=== PATIENT | female | born 1985 | race Caucasian/White ===

== ENCOUNTER 2020-10-08 11:05 | Outpatient (REF) | payer BC, SELFPAY ==
[2020-10-08 13:49] LABS: MANUAL DIFF FLAG NO
[2020-10-08 13:55] LABS: Basophils Absolute Auto 0.1 X10*3/uL (0.0-0.2); Eosinophils Absolute Auto 0.3 X10*3/uL (0.0-0.4); Eosinophils Percent Auto 3.8 % (0-4); Hematocrit 43.3 % (37-47); Hemoglobin 14.3 g/dl (12.0-16.0); Imm Gran Abs Auto 0.02 X10*3/uL (0.00-0.03); Imm Gran Pct Auto 0.2 % (0.0-0.4); Lymphocytes Absolute Auto 3.3 X10*3/uL (1.2-4.9); Lymphocytes Percent Auto 36.3 % (20-40); Mean Corpuscular Hemoglobin 28.8 pg (27.0-33.0); Mean Corpuscular Volume 87.3 fL (80-98); Mean Platelet Volume 11.1 fL (9.4-12.3); Monocytes Absolute Auto 0.5 X10*3/uL (0.1-1.2); Monocytes Percent Auto 5.1 % (2-11); Neutrophils Absolute Auto 4.8 X10*3/uL (2.0-8.3); Neutrophils Percent Auto 53.6 % (45-73); Platelet Count 375 X10*3/uL (160-400); Red Blood Count 4.96 X10*6/uL (4.20-5.50); Red Cell Distribution Width 12.5 % (11.0-16.0)
[2020-10-08 14:26] LABS: Alanine Aminotransferase 18 U/L (0-31); Anion Gap 15 (12-20); Aspartate Amino Transferase 16 U/L (5-31); Blood Urea Nitrogen 9 mg/dL (9-16); Calcium 9.2 mg/dL (8.4-10.2); Carbon Dioxide 24 mmol/L (22-29); Chloride 106 mmol/L (96-108); Cholesterol 257 mg/dL; Estimated Glomerular Filt Rate > 60; Glucose Fasting 90 mg/dL (60-99); HDL Cholesterol 43 mg/dL; LDL Cholesterol Calculated 183 mg/dl; Potassium 4.6 mmol/L (3.3-5.1); Sodium 140 mmol/L (135-145); Triglycerides 158 mg/dL
== END 2020-10-08 11:06 | disposition home or self-care (01) ==
LOC: HO.HMGCLDS 11:05
PROVIDERS: PCP Internal Medicine; Visit Provider Internal Medicine
DX: E78.5 Hyperlipidemia, unspecified (principal); G43.909 Migraine, unspecified, not intractable, without status migrainosus; I10 Essential (primary) hypertension
CPT/HCPCS: 36415; 80048; 80061; 84450; 84460; 85025

== ENCOUNTER 2020-11-22 13:57 | Outpatient (REF) | payer BC, SELFPAY ==
[2020-11-23 09:04] LABS: CT PCR NOT DETECTED (Not Detect.); NG PCR NOT DETECTED (Not Detect.)
[2020-11-23 11:02] LABS: BV Int Neg Control Negative (Negative); BV Int Pos Control Positive (Positive)
[2020-11-26 21:28] LABS: HPV mRNA E6/E7 rflx Not Detected (Not Detected)
== END 2020-11-22 13:58 | disposition home or self-care (01) ==
LOC: HO.LAB 13:57
PROVIDERS: PCP Internal Medicine; Visit Provider Advanced Practice Midwife
DX: Z01.419 Encounter for gynecological examination (general) (routine) without abnormal findings (principal); Z11.51 Encounter for screening for human papillomavirus (HPV); Z11.3 Encounter for screening for infections with a predominantly sexual mode of transmission; N89.8 Other specified noninflammatory disorders of vagina
CPT/HCPCS: 87480; 87491; 87510; 87591; 87624; 87660; 88142

== ENCOUNTER 2022-04-07 09:39 | Outpatient (REF) | payer OTHER, SELFPAY ==
[2022-04-07 12:22] LABS: Alanine Aminotransferase 19 U/L (0-31); Anion Gap 16 (12-20); Aspartate Amino Transferase 15 U/L (5-31); Blood Urea Nitrogen 11 mg/dL (9-16); Calcium 9.3 mg/dL (8.4-10.2); Carbon Dioxide 23 mmol/L (22-29); Chloride 105 mmol/L (96-108); Cholesterol 241 mg/dL; Estimated Glomerular Filt Rate > 60; Glucose Fasting 95 mg/dL (60-99); HDL Cholesterol 39 mg/dL; LDL Cholesterol Calculated 179 mg/dl; Potassium 4.6 mmol/L (3.3-5.1); Sodium 139 mmol/L (135-145); Triglycerides 115 mg/dL
[2022-04-07 12:31] LABS: TSH reflex Free T4 0.87 uIU/mL (0.32-4.0)
== END 2022-04-07 09:40 | disposition home or self-care (01) ==
LOC: HO.HMGCLDS 09:39
PROVIDERS: PCP Internal Medicine; Visit Provider Internal Medicine
DX: Z00.01 Encounter for general adult medical examination with abnormal findings (principal); E66.9 Obesity, unspecified; E78.2 Mixed hyperlipidemia; G43.009 Migraine without aura, not intractable, without status migrainosus
CPT/HCPCS: 36415; 80048; 80061; 84443; 84450; 84460

== ENCOUNTER → 2022-07-31 10:02 | Outpatient (BNVA) | payer OTHER, SELFPAY | PROVIDERS: PCP Internal Medicine; Visit Provider Advanced Practice Midwife | DX: Z13.89 Encounter for screening for other disorder (principal) ==

== ENCOUNTER 2022-07-31 10:55 | Emergency (ER) | payer OTHER, SELFPAY ==
--- NOTE | ~2022-07-31 | CT_ITS ---
EXAMINATION: CT HEAD WITHOUT CONTRAST CLINICAL INFORMATION: Headache. COMPARISON: None. TECHNIQUE: Contiguous axial imaging was performed from the skull base to vertex without intravenous contrast. This CT examination was performed using dose optimization techniques as appropriate, variously including the following: * Automated exposure control * Adjustment of mA and/or kV according to patient size (this includes techniques or standardized protocols for targeted exams where dose is matched to indication/reason for exam; i.e. extremities or head) Use of iterative reconstruction technique DLP: 687 mGy-cm. FINDINGS: There is no evidence of acute intracranial hemorrhage or territorial infarction. No abnormal mass effect or midline shift is seen. Reza to white matter differentiation is well preserved. No extra-axial fluid collections are identified. No hydrocephalus. No significant volume loss. There is no abnormal attenuation within the brain parenchyma. The osseous structures and soft tissues are normal. Partially opacified right mastoid air cells. The left mastoid air cells and visualized portions of the paranasal sinuses are well aerated. CT/CT head/brain wo IV con IMPRESSION: No acute intracranial pathology.
[2022-07-31 11:23] VITALS: BP 133/89; PULSE 50; RESP 16; TEMP 36.3; O2SAT 99; BMI 33.9
--- NOTE | 2022-07-31 11:24 | ECG_ITS ---
Test Reason : MIGRAINE Blood Pressure : / mmHG Vent. Rate : 051 BPM Atrial Rate : 051 BPM P-R Int : 138 ms QRS Dur : 080 ms QT Int : 470 ms P-R-T Axes : 031 071 072 degrees QTc Int : 433 ms Sinus bradycardia Otherwise normal ECG No previous ECGs available Referred By: Al Tate Electronically Signed By:Chandler Merino
--- NOTE | 2022-07-31 11:26 | ED.GENADULT ---
HPI - General Adult General Chief complaint: Headache <JIMMIE Bowman - Last Filed: 08/04/22 11:28> Stated complaint: Migraine Vomiting <JIMMIE Bowman - Last Filed: 08/04/22 11:28> Time Seen by Provider: 07/31/22 13:48 <JIMMIE Bowman - Last Filed: 08/04/22 11:28> Source: patient <Bridgette Ceballos NP - Last Filed: 07/31/22 16:37> Mode of arrival: ambulatory <Bridgette Ceballos NP - Last Filed: 07/31/22 16:37> Limitations: no limitations <Bridgette Ceballos NP - Last Filed: 07/31/22 16:37> History of Present Illness HPI narrative: 37-year-old female past medical history of URBAN, obesity, migraines, and mild intermittent asthma presents to the emergency department today for complaints of a migraine that began this morning around 10:00 a.m.. She states she took 100 mg of Imitrex with no relief in symptoms. She reports sensitivity to light with nausea and vomiting. She states she has had migraines in the past and has been unable to determine triggers. She was given Zofran and Fioricet in triage with moderate relief of symptoms. She denies any recent illness, sick contacts, chest pain, shortness of breath, diarrhea, constipation, dizziness. <Bridgette Ceballos NP - Last Filed: 07/31/22 16:37> Onset (ago): hour(s) (4) <Bridgette Ceballos NP - Last Filed: 07/31/22 16:37> Location: head <Bridgette Ceballos NP - Last Filed: 07/31/22 16:37> Radiation: non-radiation <Bridgette Ceballos NP - Last Filed: 07/31/22 16:37> Severity: severe and similar to prior episodes <Bridgette Ceballos NP - Last Filed: 07/31/22 16:37> Severity scale (1-10): 8 <Bridgette Ceballos NP - Last Filed: 07/31/22 16:37> Quality: aching <Bridgette Ceballos NP - Last Filed: 07/31/22 16:37> Pain Consistency: constant <Bridgette Ceballos NP - Last Filed: 07/31/22 16:37> Relieving factors: none <Bridgette Ceballos NP - Last Filed: 07/31/22 16:37> Treatments prior to arrival: other (Imitrex) <Bridgette Ceballos NP - Last Filed: 07/31/22 16:37> Related Data Home medications: Home Medications Medication Instructions Recorded Confirmed levonorgestrel 20 mcg/24 hours (8 intrauterine 10/08/20 07/30/21 yrs) 52 mg intrauterine device (Mirena) multivitamin (One-A-Day Essential 1 tab PO DAILY 10/08/20 07/30/21 tablet) Previous Rx's Medication Instructions Recorded albuterol sulfate 90 mcg/actuation 2 inh inhalation Q6H PRN shortness 10/21/21 aerosol inhaler of breath or wheezing #8.5 grams sumatriptan succinate 100 mg tablet 100 mg PO Q2-4H PRN migraine 10/21/21 headache #9 tabs cyclobenzaprine 10 mg tablet 10 mg PO TID PRN muscle spasm #10 05/13/22 tabs Symbicort 160 mcg-4.5 2 puff inhalation Q12H #10.2 grams 06/18/22 mcg/actuation HFA aerosol inhaler (budesonide-formoterol) diphenhydramine HCl 25 mg capsule 25 mg PO TID PRN nausea and 07/31/22 (Benadryl) vomiting #30 caps metoclopramide HCl 10 mg tablet 10 mg PO Q6H PRN nausea and 07/31/22 (Reglan) vomiting #10 tabs <JIMMIE Bowman - Last Filed: 08/04/22 11:28> Allergies/adverse reactions: Allergies Allergy/AdvReac Type Severity Reaction Status Date / Time No Known Allergies Allergy Verified 07/31/22 10:13 <JIMMIE Bowman - Last Filed: 08/04/22 11:28> Review of Systems Review of Systems: In addition to documented HPI above, the additional ROS was obtained: Constitutional: No Weight loss, No Fever, No Chills ENT/Mouth: No Ear Pain, No Nasal Congestion, No Sinus Pain, No Hoarseness, No sore throat, No Rhinorrhea, No Swallowing Difficulty Cardiovascular: No Chest Pain, No SOB Respiratory: No Cough, No Sputum, No Wheezing Gastrointestinal: No Diarrhea, No Constipation, No Abdominal pain Genitourinary: No Dysuria, No Urinary Frequency, No Hematuria, No Urinary Incontinence/retention, No Urgency, No Flank Pain Musculoskeletal: No joint pain, No Myalgias, No Joint Swelling Skin: No Skin Lesions, No rash Neuro: No Weakness, No Numbness, No Paresthesias <Bridgette Ceballos NP - Last Filed: 07/31/22 16:37> Yes all other systems are reviewed and are negative <Bridgette Ceballos NP - Last Filed: 07/31/22 16:37> [facility] Past Medical History Attestation statement: The following information was validated with the patient. <Bridgette Ceballos NP - Last Filed: 07/31/22 16:37> Source: old records reviewed <Bridgette Ceballos NP - Last Filed: 07/31/22 16:37> Medical History: Medical History Anxiety and depression Enlarged tonsils Migraine Mild intermittent asthma in adult without complication Mixed dyslipidemia Obesity (BMI 30-39.9) URBAN (obstructive sleep apnea) SI (sacroiliac) pain <JIMMIE Bowman - Last Filed: 08/04/22 11:28> Surgical History: Surgical History History of wisdom tooth extraction Hx of LASIK <JIMMIE Bowman - Last Filed: 08/04/22 11:28> Family History Family History: Family History Father No problems noted. Mother HTN (hypertension) Cervical cancer Substance use disorder Maternal Grandmother Substance use disorder Maternal Grandfather Cancer Paternal Grandmother No problems noted. Paternal Grandfather Cancer of thyroid Substance use disorder Brother No problems noted. Sister No problems noted. Son No problems noted. Daughter No problems noted. <JIMMIE Bowman - Last Filed: 08/04/22 11:28> Social History Social History: Social History Housing: House Alcohol intake: never Patient Tobacco Use Status: Former Tobacco user Years Smoked: 15 yrs Smoked in Last 30 Days: Yes e-Cigarette/Vaping Use: Never Used Second Hand Smoke Exposure: No Use of substances other than those prescribed or required for medical reasons: Yes Substance Use Type: Marijuana Advance Directives: No service: No Current occupational status: employed Gender identity: Female Cognitive needs: No Hearing needs: No Vision needs: No <JIMMIE Bowman - Last Filed: 08/04/22 11:28> Physical Exam ED Vital Signs: Vital Signs - 24 hr 07/31/22 11:23 07/31/22 14:03 Temperature 97.3 F Pulse Rate 50 66 Respiratory Rate 16 17 Blood Pressure 133/89 153/101 H Pulse Oximetry 99 97 Oxygen Delivery Method Room Air Room Air BMI result Body Mass Index 33.9 <JIMMIE Bowman - Last Filed: 08/04/22 11:28> Vital Signs - 24 hr 07/31/22 11:23 07/31/22 14:03 Temperature 97.3 F Pulse Rate 50 66 Respiratory Rate 16 17 Blood Pressure 133/89 153/101 H Pulse Oximetry 99 97 Oxygen Delivery Method Room Air Room Air BMI result Body Mass Index 33.9 <Bridgette Ceballos NP - Last Filed: 07/31/22 16:37> Const General: cooperative, alert and awake <Bridgette Ceballos NP - Last Filed: 07/31/22 16:37> Nutritional Appearance: well nourished <Bridgette Ceballos NP - Last Filed: 07/31/22 16:37> Orientation/consciousness: patient oriented x3 <Bridgette Ceballos NP - Last Filed: 07/31/22 16:37> Limitations: no limitations <Bridgette Ceballos NP - Last Filed: 07/31/22 16:37> HENMT Head: Yes normal to inspection, Yes normocephalic and Yes atraumatic <Bridgette Ceballos NP - Last Filed: 07/31/22 16:37> Ears: hearing grossly normal bilaterally and external ears normal <Bridgette Ceballos WEIGHT INSPECTOR - Last Filed: 07/31/22 16:37> General nose exam: Normal external nose present and Normal nares present <Bridgette Ceballos WEIGHT INSPECTOR - Last Filed: 07/31/22 16:37> Face and sinus: Yes normal facial exam and Yes face symmetric <Bridgette Ceballos WEIGHT INSPECTOR - Last Filed: 07/31/22 16:37> Mouth: Normal oral and palatal mucosa present <Bridgette Ceballos WEIGHT INSPECTOR - Last Filed: 07/31/22 16:37> Eyes General: appearance normal, both eyes and all related structures <Bridgette Ceballos WEIGHT INSPECTOR - Last Filed: 07/31/22 16:37> Visual Logan: normal visual logan by confrontation <Bridgette Ceballos WEIGHT INSPECTOR - Last Filed: 07/31/22 16:37> Alignment and Position: alignment normal <Bridgette Ceballos WEIGHT INSPECTOR - Last Filed: 07/31/22 16:37> Periorbital: periorbital findings normal <Bridgette Ceballos WEIGHT INSPECTOR - Last Filed: 07/31/22 16:37> Eyelids: Yes eyelids normal <Bridgette Ceballos WEIGHT INSPECTOR - Last Filed: 07/31/22 16:37> Conjunctivae: conjunctivae normal <Bridgette Ceballos WEIGHT INSPECTOR - Last Filed: 07/31/22 16:37> Sclerae: sclerae normal <Bridgette Ceballos WEIGHT INSPECTOR - Last Filed: 07/31/22 16:37> Corneas: corneas normal <Bridgette Ceballos WEIGHT INSPECTOR - Last Filed: 07/31/22 16:37> Pupils: Equal, round and reactive pupils present <Bridgette Ceballos WEIGHT INSPECTOR - Last Filed: 07/31/22 16:37> EOM: EOMs intact bilaterally <Bridgette Ceballos WEIGHT INSPECTOR - Last Filed: 07/31/22 16:37> Neck Neck: Yes normal visual inspection, Yes full ROM and Yes no lymphadenopathy <Bridgette Ceballos WEIGHT INSPECTOR - Last Filed: 07/31/22 16:37> Chest Chest palpation & inspection: normal inspection of the chest <Bridgette Ceballos, WEIGHT INSPECTOR - Last Filed: 07/31/22 16:37> Resp Effort & Inspection: normal respiratory effort and not labored <Bridgette Ceballos, WEIGHT INSPECTOR - Last Filed: 07/31/22 16:37> Auscultation: clear to auscultation bilaterally, no crackles, no rhonchi and no wheezes <Bridgette Ceballos, WEIGHT INSPECTOR - Last Filed: 07/31/22 16:37> Cardio Rate: regular rate <Bridgette Ceballos, WEIGHT INSPECTOR - Last Filed: 07/31/22 16:37> Rhythm: regular rhythm <Bridgette Ceballos, WEIGHT INSPECTOR - Last Filed: 07/31/22 16:37> GI Inspection: Yes normal to inspection <Bridgette Ceballos, WEIGHT INSPECTOR - Last Filed: 07/31/22 16:37> Palpation (GI): Soft to palpation and nontender <Bridgette Ceballos, WEIGHT INSPECTOR - Last Filed: 07/31/22 16:37> Auscultation: normal bowel sounds <Bridgette Ceballos, WEIGHT INSPECTOR - Last Filed: 07/31/22 16:37> Back/Spine/Pelvis Cervical Spine: cervical ROM normal <Bridgette Ceballos, WEIGHT INSPECTOR - Last Filed: 07/31/22 16:37> Thoracic/Lumbar Spine: thoraco-lumbar ROM normal <Bridgette Ceballos, WEIGHT INSPECTOR - Last Filed: 07/31/22 16:37> Skin General skin exam: no rashes or lesions noted <Bridgette Ceballos, WEIGHT INSPECTOR - Last Filed: 07/31/22 16:37> Neuro General: patient oriented x3, tone normal and moves all extremities <Bridgette Ceballos, WEIGHT INSPECTOR - Last Filed: 07/31/22 16:37> Cranial nerves: Yes Equal, round and reactive pupils present, Yes Nystagmus not present, Yes Normal facial strength present and Yes Midline tongue present <Bridgette Ceballos, WEIGHT INSPECTOR - Last Filed: 07/31/22 16:37> Gait exam (Neuro): Normal gait present <Bridgette Ceballos, WEIGHT INSPECTOR - Last Filed: 07/31/22 16:37> Motor exam (neuro): 5/5 motor strength present throughout <Bridgetteeron Ceballos WEIGHT INSPECTOR - Last Filed: 07/31/22 16:37> Extrem General: Yes normal to inspection, Yes full ROM and Yes capillary refill normal <Bridgetteeron Ceballos WEIGHT INSPECTOR - Last Filed: 07/31/22 16:37> Psych Appearance: grossly normal <Bridgetteeron Ceballos WEIGHT INSPECTOR - Last Filed: 07/31/22 16:37> Mental Status: mental status grossly normal <Bridgettemarika Ceballos, WEIGHT INSPECTOR - Last Filed: 07/31/22 16:37> Speech and movement: Normal speech and movement present <Bridgetteeron Ceballos, WEIGHT INSPECTOR - Last Filed: 07/31/22 16:37> Affect: normal affect <Bridgettemarika Ceballos, WEIGHT INSPECTOR - Last Filed: 07/31/22 16:37> Attitude: cooperative <Bridgetteeron Ceballos WEIGHT INSPECTOR - Last Filed: 07/31/22 16:37> Thought process: Normal thought process present <Bridgetteeron Ceballos WEIGHT INSPECTOR - Last Filed: 07/31/22 16:37> Thought content: Normal thought content present <Bridgetteeron Ceballos WEIGHT INSPECTOR - Last Filed: 07/31/22 16:37> Insight: Good insight present (Psych) <Bridgette Ceballos WEIGHT INSPECTOR - Last Filed: 07/31/22 16:37> Judgement: Good judgement present (Psych) <Bridgetteeron Ceballos WEIGHT INSPECTOR - Last Filed: 07/31/22 16:37> Course Course Course Narrative: 37 binu matthews with pmh of migraines presents to the ED for migraine exacerbation. patient states having photophobia, nausea and vomitting since this morning. patient states this her 3rd migraine exacerbation this month. Patient usually have more than one migraine exacerbation per month. patient states her headache is presently is similiar to previous exacerbation but today is stronger. no neuro deficits on exam. patient denies any trauma, blood thinners, neck stiffness, fever, or chills. Vital signs stable. patient is slight bradycardic at 50. labs, fiorecet, zofran ordered. EKG ordered due to bradycardia. Will order head CT scan. <JIMMIE Bowman - Last Filed: 08/04/22 11:28> Medications Administered Discontinued Medications Generic Name Dose Route Start Last Admin Trade Name Chiquis PRN Reason Stop Dose Admin Acetaminophen/Butalbital/Caffeine 2 tab 07/31/22 11:24 07/31/22 11:28 Butalb/Acetamin/Caff 50/325/40 Tablet PO 07/31/22 11:25 2 tab ONCE ONE Administration Diphenhydramine HCl 50 mg 07/31/22 14:09 07/31/22 14:36 Diphenhydramine Hcl 25 Mg Capsule PO 07/31/22 14:10 50 mg ONCE ONE Administration Ketorolac Tromethamine 15 mg 07/31/22 14:09 07/31/22 14:36 Ketorolac Tromethamine 15 Mg/Ml Vial IM 07/31/22 14:10 15 mg ONCE ONE Administration Metoclopramide HCl 10 mg 07/31/22 14:09 07/31/22 14:36 Metoclopramide Hcl 10 Mg Tablet PO 07/31/22 14:10 10 mg ONCE ONE Administration Ondansetron HCl 4 mg 07/31/22 11:24 07/31/22 11:28 Ondansetron Odt 4 Mg Tab.Rapdis TRANSLINGU 07/31/22 11:25 4 mg ONCE ONE Administration <JIMMIE Bowman - Last Filed: 08/04/22 11:28> Medications Administered Discontinued Medications Generic Name Dose Route Start Last Admin Trade Name Chiquis PRN Reason Stop Dose Admin Acetaminophen/Butalbital/Caffeine 2 tab 07/31/22 11:24 07/31/22 11:28 Butalb/Acetamin/Caff 50/325/40 Tablet PO 07/31/22 11:25 2 tab ONCE ONE Administration Diphenhydramine HCl 50 mg 07/31/22 14:09 07/31/22 14:36 Diphenhydramine Hcl 25 Mg Capsule PO 07/31/22 14:10 50 mg ONCE ONE Administration Ketorolac Tromethamine 15 mg 07/31/22 14:09 07/31/22 14:36 Ketorolac Tromethamine 15 Mg/Ml Vial IM 07/31/22 14:10 15 mg ONCE ONE Administration Metoclopramide HCl 10 mg 07/31/22 14:09 07/31/22 14:36 Metoclopramide Hcl 10 Mg Tablet PO 07/31/22 14:10 10 mg ONCE ONE Administration Ondansetron HCl 4 mg 07/31/22 11:24 07/31/22 11:28 Ondansetron Odt 4 Mg Tab.Livan FITZGERALDU 07/31/22 11:25 4 mg ONCE ONE Administration <Bridgette Ceballos NP - Last Filed: 07/31/22 16:37> Medical Decision Making Medical Decision Making [facility] Narrative: 37-year-old female past medical history of URBAN, obesity, migraines, and mild intermittent asthma presents to the emergency department today for complaints of a migraine with sensitivity to light that began this morning around 10:00 a.m. with associated nausea and vomiting. She states she took 100 mg of Imitrex with no relief in symptoms. She was given Zofran and Fioricet in triage with moderate relief of symptoms. Blood work is unremarkable. Serology is negative for influenza, RSV, or COVID-19. EKG sinus bradycardia with no previous EKGs available for comparison. CT head with no acute intracranial pathology. Reglan, Benadryl, and IM Toradol given for complaints of headache with moderate improvement. HPI and PE consistent with migraine headache. No suspicion for intracranial pathology, temporal arteritis, orbital neuritis based on physical exam and diagnostics. Patient is safe for discharge with education to manage headaches with prescribed sumatriptan, Tylenol, and/or Motrin for symptom management. Educated to return to the emergency department with worsening headache, dizziness, nausea and intractable vomiting, vision changes, or any other concerning emergent symptoms. Recommended to follow-up with her primary care provider for further treatment and management. <Bridgette Ceballos NP - Last Filed: 07/31/22 16:37> Lab Data [facility] Lab Attestation statement: I reviewed the patient's lab results. <Bridgette Ceballos NP - Last Filed: 07/31/22 16:37> Result Diagrams: : 07/31/22 11:43 07/31/22 11:43 <JIMMIE Bowman - Last Filed: 08/04/22 11:28> Labs: Lab Results 07/31/22 07/31/22 07/31/22 Range/Units 11:43 11:43 11:43 WBC 17.0 H (4.8-10.8) X10*3/uL RBC 5.01 (4.20-5.50) X10*6/uL Hgb 14.5 (12.0-16.0) g/dl Hct 43.7 (37.0-47.0) % MCV 87.2 (80.0-98.0) fL MCH 28.9 (27.0-33.0) pg MCHC 33.2 (31.0-35.0) g/dl RDW 13.0 (11.0-16.0) % Plt Count 409 H (160-400) X10*3/uL MPV 10.1 (9.4-12.3) fL Immature Gran % (Auto) 0.4 (0.0-0.4) % Neut % (Auto) 76.0 H (45-73) % Lymph % (Auto) 18.3 L (20-40) % [place] % (Auto) 3.7 (2-11) % Eos % (Auto) 1.1 (0-4) % Baso % (Auto) 0.5 (0-2) % Lymph # (Auto) 3.1 (1.2-4.9) X10*3/uL [place] # (Auto) 0.6 (0.1-1.2) X10*3/uL Eos # (Auto) 0.2 (0.0-0.4) X10*3/uL Baso # (Auto) 0.1 (0.0-0.2) X10*3/uL Abs Immat Gran (auto) 0.07 H (0.00-0.03) X10*3/uL Absolute Neuts (auto) 12.9 H (2.0-8.3) x10*3/uL Absolute Nucleated RBC 0.000 (0.0-0.012) X10*3/uL Nucleated RBC % (auto) 0.0 (0.0-0.2) /100WBC Sodium 139 (135-145) mmol/L Potassium 4.1 (3.3-5.1) mmol/L Chloride 107 (96-108) mmol/L Carbon Dioxide 23 (22-29) mmol/L Anion Gap 13 (12-20) BUN 9 (9-16) mg/dL Creatinine 0.77 (0.5-1.4) mg/dL Estim Creat Clear Calc 118.6 Estimated GFR > 60 Random Glucose 164 H (60-115) mg/dL Calcium 9.6 (8.4-10.2) mg/dL Total Bilirubin 0.4 (0.0-1.0) mg/dL AST 12 (5-31) U/L ALT 13 (0-31) U/L Alkaline Phosphatase 60 (39-117) U/L Troponin I High Sens < 3.5 (<3.5-17.0) ng/L Total Protein 7.0 (6.5-8.0) g/dL Albumin 4.5 (3.5-5.0) g/dL Beta HCG, Quant < 2 mIU/mL Influenza Type A (PCR) (Negative) Influenza Type B (PCR) (Negative) RSV RNA Qual (PCR) (Negative) SARS-CoV-2 RNA (RT-PCR) (Negative) 07/31/22 Range/Units 11:43 WBC (4.8-10.8) X10*3/uL RBC (4.20-5.50) X10*6/uL Hgb (12.0-16.0) g/dl Hct (37.0-47.0) % MCV (80.0-98.0) fL MCH (27.0-33.0) pg MCHC (31.0-35.0) g/dl RDW (11.0-16.0) % Plt Count (160-400) X10*3/uL MPV (9.4-12.3) fL Immature Gran % (Auto) (0.0-0.4) % Neut % (Auto) (45-73) % Lymph % (Auto) (20-40) % [place] % (Auto) (2-11) % Eos % (Auto) (0-4) % Baso % (Auto) (0-2) % Lymph # (Auto) (1.2-4.9) X10*3/uL [place] # (Auto) (0.1-1.2) X10*3/uL Eos # (Auto) (0.0-0.4) X10*3/uL Baso # (Auto) (0.0-0.2) X10*3/uL Abs Immat Gran (auto) (0.00-0.03) X10*3/uL Absolute Neuts (auto) (2.0-8.3) x10*3/uL Absolute Nucleated RBC (0.0-0.012) X10*3/uL Nucleated RBC % (auto) (0.0-0.2) /100WBC Sodium (135-145) mmol/L Potassium (3.3-5.1) mmol/L Chloride (96-108) mmol/L Carbon Dioxide (22-29) mmol/L Anion Gap (12-20) BUN (9-16) mg/dL Creatinine (0.5-1.4) mg/dL Estim Creat Clear Calc Estimated GFR Random Glucose (60-115) mg/dL Calcium (8.4-10.2) mg/dL Total Bilirubin (0.0-1.0) mg/dL AST (5-31) U/L ALT (0-31) U/L Alkaline Phosphatase (39-117) U/L Troponin I High Sens (<3.5-17.0) ng/L Total Protein (6.5-8.0) g/dL Albumin (3.5-5.0) g/dL Beta HCG, Quant mIU/mL Influenza Type A (PCR) NEGATIVE (Negative) Influenza Type B (PCR) NEGATIVE (Negative) RSV RNA Qual (PCR) NEGATIVE (Negative) SARS-CoV-2 RNA (RT-PCR) NEGATIVE (Negative) <JIMMIE Bowman - Last Filed: 08/04/22 11:28> Lab Results 07/31/22 07/31/22 07/31/22 Range/Units 11:43 11:43 11:43 WBC 17.0 H (4.8-10.8) X10*3/uL RBC 5.01 (4.20-5.50) X10*6/uL Hgb 14.5 (12.0-16.0) g/dl Hct 43.7 (37.0-47.0) % MCV 87.2 (80.0-98.0) fL MCH 28.9 (27.0-33.0) pg MCHC 33.2 (31.0-35.0) g/dl RDW 13.0 (11.0-16.0) % Plt Count 409 H (160-400) X10*3/uL MPV 10.1 (9.4-12.3) fL Immature Gran % (Auto) 0.4 (0.0-0.4) % Neut % (Auto) 76.0 H (45-73) % Lymph % (Auto) 18.3 L (20-40) % [place] % (Auto) 3.7 (2-11) % Eos % (Auto) 1.1 (0-4) % Baso % (Auto) 0.5 (0-2) % Lymph # (Auto) 3.1 (1.2-4.9) X10*3/uL [place] # (Auto) 0.6 (0.1-1.2) X10*3/uL Eos # (Auto) 0.2 (0.0-0.4) X10*3/uL Baso # (Auto) 0.1 (0.0-0.2) X10*3/uL Abs Immat Gran (auto) 0.07 H (0.00-0.03) X10*3/uL Absolute Neuts (auto) 12.9 H (2.0-8.3) x10*3/uL Absolute Nucleated RBC 0.000 (0.0-0.012) X10*3/uL Nucleated RBC % (auto) 0.0 (0.0-0.2) /100WBC Sodium 139 (135-145) mmol/L Potassium 4.1 (3.3-5.1) mmol/L Chloride 107 (96-108) mmol/L Carbon Dioxide 23 (22-29) mmol/L Anion Gap 13 (12-20) BUN 9 (9-16) mg/dL Creatinine 0.77 (0.5-1.4) mg/dL Estim Creat Clear Calc 118.6 Estimated GFR > 60 Random Glucose 164 H (60-115) mg/dL Calcium 9.6 (8.4-10.2) mg/dL Total Bilirubin 0.4 (0.0-1.0) mg/dL AST 12 (5-31) U/L ALT 13 (0-31) U/L Alkaline Phosphatase 60 (39-117) U/L Troponin I High Sens < 3.5 (<3.5-17.0) ng/L Total Protein 7.0 (6.5-8.0) g/dL Albumin 4.5 (3.5-5.0) g/dL Beta HCG, Quant < 2 mIU/mL Influenza Type A (PCR) (Negative) Influenza Type B (PCR) (Negative) RSV RNA Qual (PCR) (Negative) SARS-CoV-2 RNA (RT-PCR) (Negative) 07/31/22 Range/Units 11:43 WBC (4.8-10.8) X10*3/uL RBC (4.20-5.50) X10*6/uL Hgb (12.0-16.0) g/dl Hct (37.0-47.0) % MCV (80.0-98.0) fL MCH (27.0-33.0) pg MCHC (31.0-35.0) g/dl RDW (11.0-16.0) % Plt Count (160-400) X10*3/uL MPV (9.4-12.3) fL Immature Gran % (Auto) (0.0-0.4) % Neut % (Auto) (45-73) % Lymph % (Auto) (20-40) % [place] % (Auto) (2-11) % Eos % (Auto) (0-4) % Baso % (Auto) (0-2) % Lymph # (Auto) (1.2-4.9) X10*3/uL [place] # (Auto) (0.1-1.2) X10*3/uL Eos # (Auto) (0.0-0.4) X10*3/uL Baso # (Auto) (0.0-0.2) X10*3/uL Abs Immat Gran (auto) (0.00-0.03) X10*3/uL Absolute Neuts (auto) (2.0-8.3) x10*3/uL Absolute Nucleated RBC (0.0-0.012) X10*3/uL Nucleated RBC % (auto) (0.0-0.2) /100WBC Sodium (135-145) mmol/L Potassium (3.3-5.1) mmol/L Chloride (96-108) mmol/L Carbon Dioxide (22-29) mmol/L Anion Gap (12-20) BUN (9-16) mg/dL Creatinine (0.5-1.4) mg/dL Estim Creat Clear Calc Estimated GFR Random Glucose (60-115) mg/dL Calcium (8.4-10.2) mg/dL Total Bilirubin (0.0-1.0) mg/dL AST (5-31) U/L ALT (0-31) U/L Alkaline Phosphatase (39-117) U/L Troponin I High Sens (<3.5-17.0) ng/L Total Protein (6.5-8.0) g/dL Albumin (3.5-5.0) g/dL Beta HCG, Quant mIU/mL Influenza Type A (PCR) NEGATIVE (Negative) Influenza Type B (PCR) NEGATIVE (Negative) RSV RNA Qual (PCR) NEGATIVE (Negative) SARS-CoV-2 RNA (RT-PCR) NEGATIVE (Negative) <Bridgette Ceballos NP - Last Filed: 07/31/22 16:37> Radiology Impression Discussion of test interpretation with radiology: I have reviewed the radiologist's reading. <Bridgette Ceballos NP - Last Filed: 07/31/22 16:37> Radiologist Impression: EXAMINATION: CT HEAD WITHOUT CONTRAST CLINICAL INFORMATION: Headache. COMPARISON: None. TECHNIQUE: Contiguous axial imaging was performed from the skull base to vertex without intravenous contrast. This CT examination was performed using dose optimization techniques as appropriate, variously including the following: *? Automated exposure control *? Adjustment of mA and/or kV according to patient size (this includes techniques or standardized protocols for targeted exams where dose is matched to indication/reason for exam; i.e. extremities or head) Use of iterative reconstruction technique DLP: 687 mGy-cm. FINDINGS: There is no evidence of acute intracranial hemorrhage or territorial infarction. No abnormal mass effect or midline shift is seen. Reza to white matter differentiation is well preserved. No extra-axial fluid collections are identified. No hydrocephalus. No significant volume loss. There is no abnormal attenuation within the brain parenchyma. The osseous structures and soft tissues are normal. Partially opacified right mastoid air cells. The left mastoid air cells and visualized portions of the paranasal sinuses are well aerated. ? CT/CT head/brain wo IV con IMPRESSION: No acute intracranial pathology. Dictated By: Sterling Denton MD Signed By: <Electronically signed by Sterling Denton MD in [place]> 07/31/22 1307 DD/ 1236 TD/TT:? 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: PAM <Bridgette Ceabllos NP - Last Filed: 07/31/22 16:37> Discharge Plan Discharge Clinical Impression: Migraine <JIMMIE Bowman - Last Filed: 08/04/22 11:28> Patient Disposition: Home, Self-Care <JIMMIE Bowman - Last Filed: 08/04/22 11:28> Instructions: Migraine Headache (ED) <JIMMIE Bowman - Last Filed: 08/04/22 11:28> Prescriptions: New metoclopramide HCl [Reglan] 10 mg tablet 10 mg PO Q6H PRN (Reason: nausea and vomiting) Qty: 10 0RF diphenhydramine HCl [Benadryl] 25 mg capsule 25 mg PO TID PRN (Reason: nausea and vomiting) Qty: 30 0RF No Action sumatriptan succinate 100 mg tablet 100 mg PO Q2-4H PRN (Reason: migraine headache) Qty: 9 5RF albuterol sulfate 90 mcg/actuation HFA aerosol inhaler 2 inh inhalation Q6H PRN (Reason: shortness of breath or wheezing) Qty: 8.5 0RF budesonide-formoterol [Symbicort] 160-4.5 mcg/actuation HFA aerosol inhaler 2 puff inhalation Q12H Qty: 10.2 4RF Mirena 20 mcg/24 hours (6 yrs) 52 mg intrauterine device intrauterine multivitamin [One-A-Day Essential] Tablet 1 tab PO DAILY cyclobenzaprine 10 mg tablet 10 mg PO TID PRN (Reason: muscle spasm) Qty: 10 0RF <JIMMIE Bowman - Last Filed: 08/04/22 11:28> Referrals: [facility] [place] [facility] [Provider Group] Solange Ramsay MD [Primary Care Provider] - <JIMMIE Bowman - Last Filed: 08/04/22 11:28> Stand Alone Forms: Work/School Release <JIMMIE Bowman - Last Filed: 08/04/22 11:28> Interventions: ED Discharge Assessment Last Done: 07/31/22 16:51 <JIMMIE Bowman - Last Filed: 08/04/22 11:28> Discharge Date/Time: 07/31/22 16:52 <JIMMIE Bowman - Last Filed: 08/04/22 11:28> Print Language: Pashto <JIMMIE Bowman - Last Filed: 08/04/22 11:28>
[2022-07-31] MEDS: Ondansetron ODT 4 MG TAB.RAPDIS TRANSLINGU (11:28)
[2022-07-31] MEDS: Butalb/Acetamin/Caff 50/325/40 TABLET 2 TAB PO (11:28)
[2022-07-31 11:49] LABS: MANUAL DIFF FLAG NO
[2022-07-31 11:52] LABS: Basophils Absolute Auto 0.1 X10*3/uL (0.0-0.2); Basophils Percent Auto 0.5 % (0-2); Eosinophils Absolute Auto 0.2 X10*3/uL (0.0-0.4); Eosinophils Percent Auto 1.1 % (0-4); Hematocrit 43.7 % (37.0-47.0); Hemoglobin 14.5 g/dl (12.0-16.0); Imm Gran Abs Auto 0.07 X10*3/uL (0.00-0.03); Imm Gran Pct Auto 0.4 % (0.0-0.4); Lymphocytes Absolute Auto 3.1 X10*3/uL (1.2-4.9); Lymphocytes Percent Auto 18.3 % (20-40); Mean Corpuscular HGB Conc 33.2 g/dl (31.0-35.0); Mean Corpuscular Hemoglobin 28.9 pg (27.0-33.0); Mean Corpuscular Volume 87.2 fL (80.0-98.0); Mean Platelet Volume 10.1 fL (9.4-12.3); Monocytes Absolute Auto 0.6 X10*3/uL (0.1-1.2); Monocytes Percent Auto 3.7 % (2-11); Neutrophils Absolute Auto 12.9 x10*3/uL (2.0-8.3); Platelet Count 409 X10*3/uL (160-400); Red Blood Count 5.01 X10*6/uL (4.20-5.50)
[2022-07-31 12:21] LABS: Alanine Aminotransferase 13 U/L (0-31); Albumin Level 4.5 g/dL (3.5-5.0); Alkaline Phosphatase 60 U/L (39-117); Anion Gap 13 (12-20); Aspartate Amino Transferase 12 U/L (5-31); Bilirubin Total 0.4 mg/dL (0.0-1.0); Blood Urea Nitrogen 9 mg/dL (9-16); Calcium 9.6 mg/dL (8.4-10.2); Carbon Dioxide 23 mmol/L (22-29); Chloride 107 mmol/L (96-108); Creatinine Clr Calc Pharmacy 118.6; Estimated Glomerular Filt Rate > 60; Glucose Random 164 mg/dL (60-115); HCG Quantitative < 2 mIU/mL; Potassium 4.1 mmol/L (3.3-5.1); Sodium 139 mmol/L (135-145); Troponin-I High Sensitivity < 3.5 ng/L (<3.5-17.0)
[2022-07-31 12:41] LABS: Influenza A PCR NEGATIVE (Negative); Influenza B PCR NEGATIVE (Negative); Resp Syncy Virus RNA Qual PCR NEGATIVE (Negative); SARS COV2 PCR INHOUSE NEGATIVE (Negative)
[2022-07-31 14:03] VITALS: BP 153/101; PULSE 66; RESP 17; O2SAT 97
[2022-07-31] MEDS: Ketorolac Tromethamine 15 MG/ML VIAL IM (14:36)
[2022-07-31] MEDS: diphenhydrAMINE HCL 25 MG CAPSULE 50 MG PO (14:36)
[2022-07-31] MEDS: Metoclopramide HCl 10 MG TABLET PO (14:36)
[2022-07-31 16:50] VITALS: BP 142/88; PULSE 71; RESP 16; O2SAT 98
== END 2022-07-31 16:52 | disposition home or self-care (01) ==
PROVIDERS: Physician Assistant; Emergency Provider Emergency Medicine Emergency Medical Services; PCP Internal Medicine
DX: G43.909 Migraine, unspecified, not intractable, without status migrainosus (principal); Z20.822 Contact with and (suspected) exposure to COVID-19; F12.90 Cannabis use, unspecified, uncomplicated; E66.9 Obesity, unspecified; Z68.33 Body mass index [BMI] 33.0-33.9, adult; E78.5 Hyperlipidemia, unspecified; Z79.899 Other long term (current) drug therapy
CPT/HCPCS: 0241U; 36415; 70450; 80053; 84484; 84702; 85025; 93005; 96372; 99284; 99285; J1885

== ENCOUNTER 2022-10-22 08:39 | Outpatient (REF) | payer OTHER, SELFPAY ==
[2022-10-22 13:52] LABS: CT PCR NOT DETECTED (Not Detect.); NG PCR NOT DETECTED (Not Detect.)
== END 2022-10-22 08:40 | disposition home or self-care (01) ==
LOC: HO.LNP 08:39
PROVIDERS: PCP Internal Medicine; Visit Provider Advanced Practice Midwife
DX: Z20.2 Contact with and (suspected) exposure to infections with a predominantly sexual mode of transmission (principal)
CPT/HCPCS: 0353U

== ENCOUNTER 2022-11-20 09:14 | Outpatient (REF) | payer OTHER, SELFPAY ==
[2022-11-21 09:55] LABS: BV Int Neg Control Negative (Negative); BV Int Pos Control Positive (Positive)
== END 2022-11-20 09:15 | disposition home or self-care (01) ==
LOC: HO.LAB 09:14
PROVIDERS: PCP Internal Medicine; Visit Provider Advanced Practice Midwife
DX: N92.1 Excessive and frequent menstruation with irregular cycle (principal); Z97.5 Presence of (intrauterine) contraceptive device; Z32.02 Encounter for pregnancy test, result negative
CPT/HCPCS: 81025; 87480; 87510; 87660; 99212

== ENCOUNTER 2022-11-26 12:56 | Outpatient (REF) | payer OTHER, SELFPAY ==
--- NOTE | ~2022-11-26 | US_ITS ---
EXAMINATION: US PELVIS CLINICAL INFORMATION: Irregular menses. Check IUD. COMPARISON: None available. TECHNIQUE: Ultrasound of the pelvis is performed using both transabdominal and transvaginal transducers along with Doppler. Transvaginal imaging is performed due to inadequate visualization transabdominally. FINDINGS: The uterus is anteverted and measures 7.1 x 4.2 x 4.7 cm in dimension. There is an IUD in the uterus. This appears low in position in the lower uterine segment. Endometrial thickness is normal measuring 0.4 cm. No focal uterine lesion. The right ovary is not seen. The left ovary measures 3 x 1.7 x 2.4 cm and is normal-appearing. There is no fluid in the pelvis. US/US pelvic and transvaginal IMPRESSION: Low position of the IUD in the lower uterine segment. Normal left ovary. Right ovary not seen. Findings will be communicated by the [place] work flow machine cementer.
== END 2022-11-26 12:57 | disposition home or self-care (01) ==
LOC: HO.HMGCX 12:56
PROVIDERS: PCP Internal Medicine; Visit Provider Advanced Practice Midwife
DX: N92.1 Excessive and frequent menstruation with irregular cycle (principal); Z97.5 Presence of (intrauterine) contraceptive device
CPT/HCPCS: 76830; 76856

== ENCOUNTER → 2022-12-04 13:00 | Outpatient (BNVA) | payer OTHER, SELFPAY | PROVIDERS: PCP Internal Medicine; Visit Provider Advanced Practice Midwife | DX: Z30.431 Encounter for routine checking of intrauterine contraceptive device (principal) | CPT/HCPCS: 58301; 99212 ==

== ENCOUNTER 2023-08-04 11:51 | Outpatient (AMB) | payer OTHER, SELFPAY ==
[2023-08-04 12:14] VITALS: BP 100/70; PULSE 71; O2SAT 98; BMI 30.2
--- NOTE | 2023-08-04 12:14 | A.OFFPC_ITS ---
Vital Signs 08/04/23 12:14 Height 5 ft 6 in Weight 187 lb BMI 30.2 BP 100/70 Blood Pressure Location Lt brachial Position Sitting Pulse 71 Pulse Source Pulse Oximeter Pulse Oximetry (%) 98 Oxygen Delivery Method Room Air Intake Visit Reasons: Inner ear disfunction and hearing issue follow up Intake Note: Pt is here today Rt ear hearing issues Allergies No Known Allergies Allergy (Verified 08/04/23 12:14) Medication List - Last Reconciled 08/11/23 by Solange Ramsay MD albuterol sulfate 90 mcg/actuation 2 inhalations inhalation Q6H PRN inhalational spacing device (BreatheRite MDI Spacer) As directed magnesium oxide 400 mg PO DAILY rizatriptan mg PO Symbicort 160-4.5 mcg/actuation (budesonide-formoterol) 2 puffs inhalation Q12H NS Tobacco use date assessed: 08/04/23 Dental Screening Dental Screen Date: 08/04/23 Did you have a dental visit in the last 12 months?: Yes Did you have a dental problem in the last 6 months where you did not have access to dental care?: Yes Was dental information given to patient?: Patient has dentist HPI Inner ear disfunction and hearing issue follow up HPI Details 38-year-old lady with mild intermittent asthma currently stable controlled on Symbicort, needs refills, here today complaining of pressure sensation side both ears, with mild decrease in hearing noted. Denies pain, no ear discharge, no fever or lightheadedness or gait instability reported. [facility] Medical History History of abnormal cervical Papanicolaou smear Refused influenza vaccine Anxiety and depression Enlarged tonsils URBAN (obstructive sleep apnea) SI (sacroiliac) pain Mixed dyslipidemia Obesity (BMI 30-39.9) Migraine Mild intermittent asthma in adult without complication Surgical History Hx of LASIK History of wisdom tooth extraction Family History Father No problems noted. Mother HTN (hypertension) Cervical cancer Substance use disorder Maternal Grandmother Substance use disorder Maternal Grandfather Cancer Paternal Grandmother No problems noted. Paternal Grandfather Cancer of thyroid Substance use disorder Brother No problems noted. Sister No problems noted. Son No problems noted. Daughter No problems noted. Social History Housing: House Alcohol intake: never Patient Tobacco Use Status: Current someday Tobacco user Years Smoked: 15 yrs e-Cigarette/Vaping Use: Currently Using Second Hand Smoke Exposure: No Substance Use Type: Marijuana service: No Current occupational status: employed Sexual orientation: Straight/Heterosexual Gender identity: Female Cognitive needs: No Hearing needs: No Vision needs: No Female Reproductive History Menstrual Age of Menarche: 15 Questionnaire PHQ-9 Over the last 2 weeks, how often have you been bothered by any of the following problems? 1. Little interest or pleasure in doing things: not at all 2. Feeling down, depressed, or hopeless: not at all 3. Trouble falling or staying asleep, or sleeping too much: not at all 4. Feeling tired or having little energy: not at all 5. Poor appetite or overeating: not at all 6. Feeling bad about yourself - or that you are a failure or have let yourself or your family down: not at all 7. Trouble concentrating on things, such as reading the newspaper or watching television: not at all 8. Moving or speaking so slowly that other people could have noticed. Or the opposite - being so fidgety or restless that you have been moving around a lot more than usual: not at all 9. Thoughts that you would be better off or of hurting yourself in some way: not at all Total score: 0 Depression Screening Interpretation: Negative Depression Screening Done: Yes 81241 - PHQ-9 Billing: Yes Source: Developed by Drs. Nakul Don, Omayra Haywood, Hunter Tomlin and colleagues, with an educational gallo from [employer]. Thrive Questionnaire Date Thrive assessed: 08/04/23 I am a: Patient What is your living situation today?: I have a steady place to live Within the past 12 months, did the food you bought not last and you didn't have the money to get more?: Never true Within the past 12 months, did you worry whether your food would run out before you got money to buy more?: Never true Do you have trouble paying for medicines?: No Do you have trouble getting transportation to medical appointments?: No Do you have trouble paying your heating and electricity bill?: No Do you have trouble taking care of your child, family member or friend?: No Do you have trouble with day-to-day activities such as bathing, preparing meals, shopping, managing finances, etc.?: No Are you currently unemployed and looking for a job?: No Are you interested in more education?: No AUDIT C Alcohol Use Questionnaire (AUDIT-C) 1. How often do you have a drink containing alcohol?: Never Total Score: 0 KRISTY-7 AMB Questionnaire KRISTY-7 Date KRISTY - 7 assessed: 08/04/23 Feeling nervous, anxious, or on edge: 1 = Several days Not being able to stop or control worryin = Not at all Worrying too much about different things: 1 = Several days Trouble relaxin = Several days Being so restless that it is hard to sit still: 0 = Not at all Becoming easily annoyed or irritable: 1 = Several days Feeling afraid as if something awful might happen: 0 = Not at all Total KRISTY-7 score (0-4 normal; 5-9 mild; 10-14 moderate; 15-21 severe): 4 Source: Developed by Drs. Nakul Don, Omayra Haywood, Hunter Tomlin and colleagues, with an educational gallo from [employer]. KRSITY-7 Assessment Billing KRISTY-7 Assessment Tool: KRISTY-7 Assessment 14179 ACT Questionnaire In the past 4 weeks, how much of the time did your asthma keep you from getting as much done at work, school or at home?: None of the time During the past 4 weeks, how often have you had shortness of breath?: 1-2 times a week During the past 4 weeks, how often have you had to use your rescue inhaler or nebulizer medication?: Once a week or less How would you rate your asthma control during the past 4 weeks?: Well controlled ACT Interpretation: Negative Score: 17 Review of Systems Const All systems reviewed & are unremarkable except as noted in HPI and below Physical exam (Primary Care) Vital Signs: Last Vital Signs Pulse 71 08/04/23 12:14 BP 100/70 08/04/23 12:14 Pulse Ox 98 08/04/23 12:14 Oxygen Delivery Method Room Air 08/04/23 12:14 BMI result Body Mass Index 30.2 Tobacco/Smoking Status: Tobacco use Status Tobacco use date assessed 08/04/23 08/04/23 12:15 Patient Tobacco Use Status Current someday Tobacco 08/04/23 12:15 e-Cigarette/Vaping Use Currently Using 08/04/23 12:15 PHQ-9: PHQ-9 Score PHQ-9: Total score 0 08/04/23 12:50 Depression Screening Interpretation: Negative Thrive Assessment: Date of Thrive Assessment Date Thrive assessed 08/04/23 08/04/23 12:19 Const General: comfortable, no acute distress and alert Nutritional Appearance: obese Orientation/consciousness: patient oriented x3 HENMT Head: Yes normocephalic Ears: external ears normal, TM's normal bilaterally, EAC's normal and hearing grossly impaired General nose exam: Normal external nose present and No nasal discharge present Face and sinus: Yes face symmetric Mouth: Normal oral and palatal mucosa present, oropharynx normal and moist mucous membranes Neck Neck: Yes full ROM, Yes no lymphadenopathy and Yes supple Resp Auscultation: clear to auscultation bilaterally Cardio Other: S1-S2 present regular rate and rhythm Neuro General: patient oriented x3 Assessment and Plan Assessment & Plan (1) Pressure sensation in right ear: Code(s): H93.8X1 - Other specified disorders of right ear (2) Mild intermittent asthma in adult without complication: Code(s): J45.20 - Mild intermittent asthma, uncomplicated Orders: Referrals Ear/Nose/Throat Referral H93.8X1 - Other specified disorders of right ear Medications: New inhalational spacing device (BreatheRite MDI Spacer) As directed 1 ea 0RF J45.20 - Mild intermittent asthma, uncomplicated Refilled Symbicort 160-4.5 mcg/actuation (budesonide-formoterol) 2 puffs inhalation Q12H 30.6 grams 8RF NS J45.20 - Mild intermittent asthma, uncomplicated Coding Level of Care Code Est Pt Level 3 (86005) Diagnoses Pressure sensation in right ear H93.8X1 Mild intermittent asthma in adult without complication J45.20 Additional Codes KRISTY-7 Assessment Billing - KRISTY-7 Assessment Tool: KRISTY-7 Assessment [id number] ([id number])
== END 2023-08-04 14:12 | disposition home or self-care (01) ==
LOC: HO.HMGC 11:51
PROVIDERS: PCP Internal Medicine; Visit Provider Internal Medicine
DX: H93.8X1 Other specified disorders of right ear (principal); J45.20 Mild intermittent asthma, uncomplicated
CPT/HCPCS: 99213

== ENCOUNTER 2023-08-24 10:52 | Outpatient (AMB) | payer OTHER, SELFPAY ==
[2023-08-24 10:54] VITALS: BP 116/72; PULSE 77; O2SAT 98; BMI 30.9
--- NOTE | 2023-08-24 10:54 | A.OFFPC_ITS ---
Vital Signs 08/24/23 10:54 Height 5 ft 6 in Weight 191 lb 8 oz BMI 30.9 BP 116/72 Blood Pressure Location Rt brachial Position Sitting Pulse 77 Pulse Source Pulse Oximeter Pulse Oximetry (%) 98 Oxygen Delivery Method Room Air Intake Visit Reasons: follow AF ok Per Dr Ramsay referral needed Allergies No Known Allergies Allergy (Verified 08/24/23 11:09) Medication List - Last Reconciled 08/24/23 by TATIANA Ross albuterol sulfate 90 mcg/actuation 2 inhalations inhalation Q6H PRN inhalational spacing device (BreatheRite MDI Spacer) As directed magnesium oxide 400 mg PO DAILY omeprazole 20 mg PO DAILY rizatriptan mg PO Symbicort 160-4.5 mcg/actuation (budesonide-formoterol) 2 puffs inhalation Q12H NS Tobacco use date assessed: 08/24/23 Dental Screening Dental Screen Date: 08/24/23 Did you have a dental visit in the last 12 months?: Yes Did you have a dental problem in the last 6 months where you did not have access to dental care?: No Was dental information given to patient?: Patient has dentist HPI HPI Comments History of Present Illness Details Patient is a 38-year-old female here for a sick visit. She was recently discharged from [facility] for problem of left lower quadrant abdomen pain. She was given a CT scan which ruled out diverticulitis. Patient was given a diagnosis of gastroenteritis, and prescribe ondansetron and dicyclomine. At the appointment today patient states that the medication has not been helpful. She has localized pain to the left lower quadrant, some tenderness on palpation. Denies any trauma to the area, denies hearing any tearing or popping. Patient denies blood in stool, nausea, vomiting, tingling, fever, chest pain, dizziness. Patient states she does have small amount of reflux, and her stools have been loose. Patient denies any urinary problems. [facility] Medical History History of abnormal cervical Papanicolaou smear Refused influenza vaccine Anxiety and depression Enlarged tonsils URBAN (obstructive sleep apnea) SI (sacroiliac) pain Mixed dyslipidemia Obesity (BMI 30-39.9) Migraine Mild intermittent asthma in adult without complication Surgical History Hx of LASIK History of wisdom tooth extraction Family History Father No problems noted. Mother HTN (hypertension) Cervical cancer Substance use disorder Maternal Grandmother Substance use disorder Maternal Grandfather Cancer Paternal Grandmother No problems noted. Paternal Grandfather Cancer of thyroid Substance use disorder Brother No problems noted. Sister No problems noted. Son No problems noted. Daughter No problems noted. Social History Housing: House Alcohol intake: never Patient Tobacco Use Status: Current someday Tobacco user Years Smoked: 15 yrs e-Cigarette/Vaping Use: Currently Using Second Hand Smoke Exposure: No Substance Use Type: Marijuana service: No Current occupational status: employed Sexual orientation: Straight/Heterosexual Gender identity: Female Cognitive needs: No Hearing needs: No Vision needs: No Female Reproductive History Menstrual Age of Menarche: 15 Questionnaire Thrive Questionnaire Date Thrive assessed: 08/04/23 AUDIT C Alcohol Use Questionnaire (AUDIT-C) 1. How often do you have a drink containing alcohol?: Never 3. How often do you have six or more drinks on one occasion?: Never Total Score: 0 Score Reviewed/Action Taken: Yes KRISTY-7 AMB Questionnaire KRISTY-7 Date KRISTY - 7 assessed: 08/04/23 Source: Developed by Drs. Nakul Don, Omayra Haywood, Hunter Tomlin and colleagues, with an educational gallo from [employer]. Review of Systems Const Details: Constitutional : No Weight loss, No Fever, No Chills, No Fatigue, No Malaise Cardiovascular : No Chest Pain, No SOB, No Dyspnea on Exertion, No Orthopnea, No Edema, No Palpitations Respiratory : No Cough, No Sputum, No Wheezing Gastrointestinal : No Nausea, No Vomiting, No Diarrhea, No Constipation, Admits intermittent LLQ pain, No Hematochezia, No Melena. Admits loose stools. Genitourinary : No Dysuria, No Urinary Frequency, No Hematuria, Musculoskeletal : No joint pain, No Myalgias, No Joint Swelling Skin : No Skin Lesions, No rash Neuro : No Weakness, No Numbness, No Dizziness, No Headache Psych : No Anxiety/Panic, No Depression Heme/Lymph: No Bruising, No Bleeding,No Lymphadenopathy Endocrine : No Polyuria, No Polydipsia All other systems reviewed and are negative Physical exam (Primary Care) Vital Signs: Last Vital Signs Pulse 77 08/24/23 10:54 BP 116/72 08/24/23 10:54 Pulse Ox 98 08/24/23 10:54 Oxygen Delivery Method Room Air 08/24/23 10:54 Care Plan Goal for BP management: Patient's vital signs reviewed and are stable. BMI result Body Mass Index 30.9 Tobacco/Smoking Status: Tobacco use Status Tobacco use date assessed 08/24/23 08/24/23 11:04 Patient Tobacco Use Status Current someday Tobacco 08/24/23 10:54 e-Cigarette/Vaping Use Currently Using 08/24/23 10:54 Thrive Assessment: Date of Thrive Assessment Date Thrive assessed 08/04/23 08/24/23 10:54 Const General: cooperative and no acute distress Orientation/consciousness: patient oriented x3 Limitations: no limitations HENMT Head: Yes normal to inspection and Yes normocephalic Eyes General: appearance normal, both eyes and all related structures Pupils: Equal, round and reactive pupils present Neck Neck: Yes normal visual inspection, Yes full ROM and Yes no lymphadenopathy Resp Auscultation: clear to auscultation bilaterally Cardio Rate: regular rate Rhythm: regular rhythm Heart sounds: S1 normal heart sound present and S2 normal heart sound present GI Inspection: Yes normal to inspection Palpation (GI): Soft to palpation and Tenderness to palpation present (GI) in the LLQ Auscultation: normal bowel sounds General: Yes no CVA tenderness Back/Spine/Pelvis Back: no CVA tenderness Neuro General: patient oriented x3 Cranial nerves: Yes CN's II-XII intact bilaterally and Yes Equal, round and reactive pupils present Psych Thought content: Normal thought content present Insight: Good insight present (Psych) Judgement: Good judgement present (Psych) Results Reviewed Results Reviewed: Will call patient with lab results. Assessment and Plan Assessment & Plan (1) Left lower quadrant pain: Comment: Will order labs. Will order ultrasound the left lower quadrant to rule out hernia. Will get patient omeprazole to be taken as directed. Patient has been instructed on foods to avoid, and to drink plenty of water. Will refer to Gastroenterology. Patient has been educated on signs of worsening symptoms and when to return to the office or when to present to the emergency room. Code(s): R10.32 - Left lower quadrant pain Plan: Take your medications as prescribed. If you were prescribed antibiotics today, it is important that you take your medication to their entirety, do not skip any doses, do not finish them early. Follow-up with your primary care provider this week. Return to the emergency department with new or worsening symptoms. Such as fevers, chills, chest pain, shortness of breath, nausea, vomiting, dizziness, headache, vision changes, lethargy In case of emergency call 911 Plan Will get back to patient with lab results. Orders: Orders C Reactive Protein Today R10.9 - Unspecified abdominal pain Complete Blood Count Auto Diff Today Z13.0 - Encounter for screening for diseases of the blood and blood-forming organs and certain disorders involving the immune mechanism Erythrocyte Sedimentation Rate Today R10.9 - Unspecified abdominal pain Comprehensive Met. Panel Today Z91.89 - Other specified personal risk factors, not elsewhere classified Lipase Today R10.9 - Unspecified abdominal pain US abdomen limited Today R10.32 - Left lower quadrant pain Referrals Gastroenterology Referral R10.32 - Left lower quadrant pain Medications: New omeprazole 20 mg PO DAILY 30 caps 0RF Coding Level of Care Code Est Pt Level 3 (38804) Diagnoses Left lower quadrant pain R10.32 Time Spent (min) 30
== END 2023-08-24 12:34 | disposition home or self-care (01) ==
PROVIDERS: PCP Internal Medicine; Visit Provider Nurse Practitioner Primary Care
DX: R10.32 Left lower quadrant pain (principal)
CPT/HCPCS: 99214

== ENCOUNTER 2023-08-24 11:26 | Outpatient (REF) | payer OTHER, SELFPAY ==
[2023-08-24 13:41] LABS: MANUAL DIFF FLAG NO
[2023-08-24 13:47] LABS: Basophils Absolute Auto 0.1 X10*3/uL (0.0-0.2); Basophils Percent Auto 0.7 % (0-2); Eosinophils Absolute Auto 0.2 X10*3/uL (0.0-0.4); Eosinophils Percent Auto 2.5 % (0-4); Hematocrit 39.5 % (37.0-47.0); Hemoglobin 12.9 g/dl (12.0-16.0); Imm Gran Abs Auto 0.03 X10*3/uL (0.00-0.03); Imm Gran Pct Auto 0.4 % (0.0-0.4); Lymphocytes Absolute Auto 2.7 X10*3/uL (1.2-4.9); Lymphocytes Percent Auto 33.2 % (20-40); Mean Corpuscular HGB Conc 32.7 g/dl (31.0-35.0); Mean Corpuscular Hemoglobin 29.1 pg (27.0-33.0); Mean Corpuscular Volume 89.2 fL (80.0-98.0); Mean Platelet Volume 10.6 fL (9.4-12.3); Monocytes Absolute Auto 0.3 X10*3/uL (0.1-1.2); Monocytes Percent Auto 3.9 % (2-11); Neutrophils Absolute Auto 4.8 x10*3/uL (2.0-8.3); Neutrophils Percent Auto 59.3 % (45-73); Platelet Count 398 X10*3/uL (160-400); Red Blood Count 4.43 X10*6/uL (4.20-5.50); Red Cell Distribution Width 12.4 % (11.0-16.0); White Blood Count 8.1 X10*3/uL (4.8-10.8)
[2023-08-24 14:15] LABS: Alanine Aminotransferase 11 U/L (0-31); Alkaline Phosphatase 53 U/L (39-117); Anion Gap 12 (12-20); Aspartate Amino Transferase 10 U/L (5-31); Bilirubin Total 0.2 mg/dL (0.0-1.0); Blood Urea Nitrogen 8 mg/dL (9-16); C Reactive Protein 0.29 mg/dL (< or = 0.50); Calcium 9.1 mg/dL (8.4-10.2); Carbon Dioxide 25 mmol/L (22-29); Chloride 106 mmol/L (96-108); Estimated Glomerular Filt Rate > 60; Glucose Random 97 mg/dL (60-115); Lipase 23 U/L (8-78); Sodium 139 mmol/L (135-145); Total Protein 6.9 g/dL (6.5-8.0)
[2023-08-24 14:31] LABS: Erythrocyte Sedimentation Rate 10 MM/HR (0-20)
== END 2023-08-24 11:27 | disposition home or self-care (01) ==
LOC: HO.HMGCLDS 11:26
PROVIDERS: PCP Internal Medicine; Visit Provider Nurse Practitioner Primary Care
DX: R10.9 Unspecified abdominal pain (principal); Z13.0 Encounter for screening for diseases of the blood and blood-forming organs and certain disorders involving the immune mechanism; Z91.89 Other specified personal risk factors, not elsewhere classified
CPT/HCPCS: 36415; 80053; 83690; 85025; 85652; 86140

== ENCOUNTER 2023-08-28 10:36 | Outpatient (REF) | payer OTHER, SELFPAY ==
--- NOTE | ~2023-08-28 | US_ITS ---
EXAMINATION: US ABDOMEN LIMITED CLINICAL INFORMATION: Left lower quadrant pain. COMPARISON: None available. TECHNIQUE: Real-time imaging of the left lower quadrant. Limited visualization due to bowel gas. FINDINGS: Targeted ultrasound images were obtained by the [employer] consultant of the area of concern as indicated by the patient in the left lower quadrant and demonstrated no discrete mass or fluid collection. Limited visualization due to bowel gas. Radiologist was not in attendance. Images were later provided for interpretation. US/US abdomen limited IMPRESSION: No discrete mass or fluid collection identified in the area of concern as indicated by the patient in the left lower quadrant. Limited visualization due to bowel gas. CT scan should be considered for further evaluation.
== END 2023-08-28 10:37 | disposition home or self-care (01) ==
LOC: HO.US 10:36
PROVIDERS: PCP Internal Medicine; Visit Provider Nurse Practitioner Primary Care
DX: R10.32 Left lower quadrant pain (principal)
CPT/HCPCS: 76705

== ENCOUNTER 2023-11-25 14:06 | Outpatient (AMB) | payer OTHER, SELFPAY ==
[2023-11-25 14:10] VITALS: BP 138/84; PULSE 71; BMI 34.2
--- NOTE | 2023-11-25 14:10 | MHC.OFFVIS ---
Intake Vital Signs 11/25/23 14:10 Height 5 ft 6 in Weight 212 lb BMI 34.2 BP 138/84 Blood Pressure Location Lt brachial Position Sitting Pulse 71 Intake Visit Reasons: LLQ Pains Intake Note: Meron presents in the office as a new patient for LLQ pains. CC: Pains in the lower left quadrant. No irregular bowel movements. She gets reflux sometimes but she takes omeprazole. It seems to be more frequent pains in the abdomen more recently. 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 Pt reports having sharp pain for a few months - initially felt positional but now seems to occur despite not changing any position. Does not radiate. Very fleeting 30-60 seconds. Does occur multiple times a day. No nausea or vomiting. No changes in stools. No fevers or chills. No new meds. No pelvic surgeries. 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 Does have stress urinary incontinence. [facility] Medical History History of abnormal cervical Papanicolaou smear Refused influenza vaccine Anxiety and depression Enlarged tonsils URBAN (obstructive sleep apnea) SI (sacroiliac) pain Mixed dyslipidemia Obesity (BMI 30-39.9) Migraine Mild intermittent asthma in adult without complication Surgical History Hx of LASIK History of wisdom tooth extraction Family History Father No problems noted. Mother HTN (hypertension) Cervical cancer Substance use disorder Maternal Grandmother Substance use disorder Maternal Grandfather Cancer Paternal Grandmother No problems noted. Paternal Grandfather Cancer of thyroid Substance use disorder Brother No problems noted. Sister No problems noted. Son No problems noted. Daughter No problems noted. Social History Housing: House Alcohol intake: never Patient Tobacco Use Status: Current someday Tobacco user Years Smoked: 15 yrs e-Cigarette/Vaping Use: Currently Using Second Hand Smoke Exposure: No Substance Use Type: Marijuana service: No Current occupational status: employed Sexual orientation: Straight/Heterosexual Gender identity: Female Cognitive needs: No Hearing needs: No Vision needs: No Female Reproductive History Menstrual Age of Menarche: 15 Review of Systems Const All systems reviewed & are unremarkable except as noted in HPI and below Physical Exam Vital Signs: Last Vital Signs Pulse 71 11/25/23 14:10 BP 138/84 11/25/23 14:10 BMI result Body Mass Index 34.2 No acute distress Nonicteric Abdomen soft, nontender, nondistended Deep left pelvic tenderness No peripheral edema Assessment & Plan Assessment & Plan (1) Pain pelvic: Code(s): R10.2 - Pelvic and perineal pain Plan Reviewed with the patient that the location, character and timing of the pain is not consistent with luminal/colonic etiology. Could potentially be pelvic pain, given the location and description of the pain. Has previous history of IUD that was removed. Plan: -ultrasound pelvis -ibuprofen 600 t.i.d. x 5-7 days -heat application -follow-up in 6-8 weeks if ultrasound negative and pain not resolved Orders: Orders US pelvic complete Today R10.32 - Left lower quadrant pain Coding Level of Care Code New Pt Level 3 (20399) Diagnoses Pain pelvic R10.2
== END 2023-11-25 14:46 | disposition home or self-care (01) ==
PROVIDERS: PCP Internal Medicine; Visit Provider Internal Medicine
DX: R10.2 Pelvic and perineal pain (principal)
CPT/HCPCS: 99203

== ENCOUNTER → 2023-11-25 14:06 | Outpatient (BNVA) | payer OTHER, SELFPAY | PROVIDERS: PCP Internal Medicine; Visit Provider Internal Medicine | DX: R10.2 Pelvic and perineal pain (principal) | CPT/HCPCS: 99202 ==

== ENCOUNTER 2023-12-03 13:49 | Outpatient (REF) | payer OTHER, SELFPAY ==
--- NOTE | ~2023-12-03 | US_ITS ---
EXAMINATION: US PELVIS CLINICAL INFORMATION: Left lower quadrant pain, last menstrual period 12/02/2023. COMPARISON: 11/26/2022. TECHNIQUE: Ultrasound of the pelvis is performed using both transabdominal and transvaginal transducers along with Doppler. Transvaginal imaging is performed due to inadequate visualization transabdominally. FINDINGS: The uterus is anteverted and measures 7.0 x 3.2 x 4.3 cm. Endometrial thickness is 2 mm. No significant free fluid. Nabothian cysts in the cervix. Right ovary measures 2.0 x 1.7 x 2.8 cm, volume 5.0 mL. Left ovary measures 2.6 x 1.2 x 2.6 cm, volume 4.4 mL and is unremarkable. Right ovarian 0.8 x 0.7 x 0.7 simple ovarian cyst is likely physiologic. There is no specific indication for additional imaging at this time. US/US pelvic and transvaginal IMPRESSION: 1. Endometrial thickness is 2 mm. 2. Right ovarian 0.8 cm simple ovarian cyst is likely physiologic. There is no specific indication for additional imaging at this time.
== END 2023-12-03 13:50 | disposition home or self-care (01) ==
LOC: HO.HMGCX 13:49
PROVIDERS: PCP Internal Medicine; Visit Provider Internal Medicine
DX: R10.2 Pelvic and perineal pain (principal); R10.32 Left lower quadrant pain
CPT/HCPCS: 76830; 76856

== ENCOUNTER 2024-01-14 09:19 | Outpatient (AMB) | payer OTHER, SELFPAY ==
--- NOTE | 2024-01-14 09:36 | A.OFFPC_ITS ---
Vital Signs 01/14/24 09:37 Height 5 ft 6 in Weight 218 lb BMI 35.2 BP 122/80 Blood Pressure Location Rt brachial Position Sitting Pulse 63 Pulse Source Pulse Oximeter Pulse Oximetry (%) 98 Oxygen Delivery Method Room Air Intake Visit Reasons: annual PE Intake Note: pt here for annual PE. last PAP 11/23/20. Has upcoming appt. [facility] Allergies No Known Allergies Allergy (Verified 03/16/24 14:23) Medication List - Last Reconciled 01/14/24 by Solange Ramsay MD inhalational spacing device (BreatheRite MDI Spacer) As directed magnesium oxide 400 mg PO DAILY omeprazole 20 mg PO DAILY rimegepant (Nurtec ODT) mg PO Symbicort 160-4.5 mcg/actuation (budesonide-formoterol) 2 puffs inhalation Q12H NS Ventolin HFA 90 mcg/actuation (albuterol sulfate) 2 inhalations inhalation Q6H PRN NS Tobacco use date assessed: 01/14/24 Dental Screening Dental Screen Date: 01/14/24 Did you have a dental visit in the last 12 months?: Yes Did you have a dental problem in the last 6 months where you did not have access to dental care?: No Was dental information given to patient?: Patient has dentist HPI annual PE HPI Details 38-year-old lady here today for physical exam she is up-to-date with her cervical cancer screening, with last PAP done 11/23/20. Has upcoming appt. Already scheduled with [facility], Has mild intermittent asthma, currently stable controlled on Symbicort and has albuterol inhaler that she uses as needed. Complains of dry cracking, itchy skin on palms of both hands. Has been having intermittent episodes of pain in her right lower back, has with prolonged standing or sitting. Not much improvement with taking [id number] Tylenol [facility] Medical History (Updated 03/16/24 @ 14:36 by Solange Ramsay MD) Pain of right sacroiliac joint History of abnormal cervical Papanicolaou smear Refused influenza vaccine Anxiety and depression Enlarged tonsils URBAN (obstructive sleep apnea) SI (sacroiliac) pain Mixed dyslipidemia Obesity (BMI 30-39.9) Migraine Mild intermittent asthma in adult without complication Surgical History History of adenoidectomy Hx of tonsillectomy Hx of LASIK History of wisdom tooth extraction Family History Father No problems noted. Mother HTN (hypertension) Cervical cancer Substance use disorder Maternal Grandmother Substance use disorder Maternal Grandfather Cancer Paternal Grandmother No problems noted. Paternal Grandfather Cancer of thyroid Substance use disorder Brother No problems noted. Sister No problems noted. Son No problems noted. Daughter No problems noted. Social History Housing: House Alcohol intake: never Patient Tobacco Use Status: Former Tobacco user Years Smoked: 15 yrs e-Cigarette/Vaping Use: Currently Using Second Hand Smoke Exposure: No Substance Use Type: Marijuana service: No Current occupational status: employed Sexual orientation: Straight/Heterosexual Gender identity: Female Cognitive needs: No Hearing needs: No Vision needs: No Female Reproductive History Menstrual Age of Menarche: 15 Questionnaire PHQ-9 Over the last 2 weeks, how often have you been bothered by any of the following problems? 1. Little interest or pleasure in doing things: not at all 2. Feeling down, depressed, or hopeless: not at all 3. Trouble falling or staying asleep, or sleeping too much: several days 4. Feeling tired or having little energy: more than half the days 5. Poor appetite or overeating: not at all 6. Feeling bad about yourself - or that you are a failure or have let yourself or your family down: not at all 7. Trouble concentrating on things, such as reading the newspaper or watching television: not at all 8. Moving or speaking so slowly that other people could have noticed. Or the opposite - being so fidgety or restless that you have been moving around a lot more than usual: not at all 9. Thoughts that you would be better off or of hurting yourself in some way: not at all Total score: 3 Depression Screening Interpretation: Negative Depression Screening Done: Yes 78846 - PHQ-9 Billing: Yes Source: Developed by Drs. Nakul L. FlorenciaOmayra almonte Kurt Kroenke and colleagues, with an educational gallo from [employer]. Thrive Questionnaire Date Thrive assessed: 01/14/24 What is your living situation today?: I have a steady place to live Within the past 12 months, did the food you bought not last and you didn't have the money to get more?: Never true Within the past 12 months, did you worry whether your food would run out before you got money to buy more?: Never true Do you have trouble paying for medicines?: No Do you have trouble getting transportation to medical appointments?: No Do you have trouble paying your heating and electricity bill?: No Do you have trouble taking care of your child, family member or friend?: No Do you have trouble with day-to-day activities such as bathing, preparing meals, shopping, managing finances, etc.?: No Are you currently unemployed and looking for a job?: No Are you interested in more education?: No Please select the resources that you would like help with: None THRIVE Score: 0 AUDIT C Alcohol Use Questionnaire (AUDIT-C) 1. How often do you have a drink containing alcohol?: Never Total Score: 0 KRISTY-7 AMB Questionnaire KRISTY-7 Date KRISTY - 7 assessed: 01/14/24 Feeling nervous, anxious, or on edge: 0 = Not at all Not being able to stop or control worryin = Not at all Worrying too much about different things: 0 = Not at all Trouble relaxin = Not at all Being so restless that it is hard to sit still: 0 = Not at all Becoming easily annoyed or irritable: 0 = Not at all Feeling afraid as if something awful might happen: 0 = Not at all Total KRISTY-7 score (0-4 normal; 5-9 mild; 10-14 moderate; 15-21 severe): 0 Source: Developed by Drs. Nakul Don, Hunter Laura and colleagues, with an educational gallo from [employer]. KRISTY-7 Assessment Billing KRISTY-7 Assessment Tool: KRISTY-7 Assessment 38322 Review of Systems Const Denies fatigue Eyes Reports no additional complaints ENT Denies change in voice, Denies dysphagia, Denies nasal congestion and Denies nasal discharge Card Denies chest pain, Denies lightheadedness, Denies palpitations and Denies orthopnea Resp Denies chest congestion, Denies cough and Denies wheezing GI Denies abdominal pain, Denies bloating, Denies change in bowel habits, Denies dysphagia and Denies heartburn Reports no additional complaints Musc Reports as per HPI Skin/Breast Denies breast pain, Denies breast mass and Denies rash Neuro Reports no additional complaints Psych Reports as per HPI Endo Denies fatigue, Denies polydipsia, Denies polyuria and Denies palpitations Jeffrey/Lymph Reports no additional complaints Aller/Immun Denies wheezing Physical exam (Primary Care) Vital Signs: Last Vital Signs Pulse 63 01/14/24 09:37 BP 122/80 01/14/24 09:37 Pulse Ox 98 01/14/24 09:37 Oxygen Delivery Method Room Air 01/14/24 09:37 Care Plan Goal for BP management: Patient's vital signs reviewed and are stable. BMI result Body Mass Index 35.2 Tobacco/Smoking Status: Tobacco use Status Tobacco use date assessed 01/14/24 01/14/24 10:01 Patient Tobacco Use Status Former Tobacco user 01/14/24 10:01 e-Cigarette/Vaping Use Currently Using 01/14/24 09:37 PHQ-9: PHQ-9 Score PHQ-9: Total score 3 03/16/24 14:26 Depression Screening Interpretation: Negative Thrive Assessment: Date of Thrive Assessment Date Thrive assessed 01/14/24 01/14/24 10:01 Advance Care Planning discussion: Completed/Scanned Date of discussion: 01/14/24 Who was present: Patient Forms completed: Health Care Proxy Time spent: 16-45 minutes Actual minutes spent: 16 Const General: cooperative and no acute distress Orientation/consciousness: patient oriented x3 HENMT Head: Yes normal to inspection and Yes normocephalic Eyes General: appearance normal, both eyes and all related structures Pupils: Equal, round and reactive pupils present Neck Neck: Yes normal visual inspection, Yes full ROM and Yes no lymphadenopathy Chest Breast/axilla inspection: normal inspection of the breasts Breast/axilla palpation: normal palpation of the breasts Resp Auscultation: clear to auscultation bilaterally Cardio Rate: regular rate Rhythm: regular rhythm Heart sounds: S1 normal heart sound present and S2 normal heart sound present GI Inspection: Yes normal to inspection Palpation (GI): Soft to palpation and Tenderness to palpation present (GI) in the LLQ Auscultation: normal bowel sounds General: Yes deferred (Goes to [facility]) Back/Spine/Pelvis Other: Slight tenderness on palpation over right sacroiliac joint, negative straight leg raising sign bilaterally Skin Other: Dry cracking fissured skin on palms Neuro General: patient oriented x3 Cranial nerves: Yes CN's II-XII intact bilaterally and Yes Equal, round and reactive pupils present Extrem General: Yes full ROM, Yes no joint enlargement, Yes no clubbing, cyanosis or edema, Yes no calf tenderness and Yes normal gait Psych Appearance: grossly normal and well kempt Mental Status: mental status grossly normal Speech and movement: Normal speech and movement present Affect: normal affect Thought process: Normal thought process present Thought content: Normal thought content present Results Reviewed Results Reviewed: eric: Meron Sanchez Age/Sex: 38/F : 1985 Unit#: [id number] Attend Dr: Lucas Benítez Re08/24/23 Status: DEP REF [facility] Disch: SPEC : [id number] AALIYAH: 08/24/23 STATUS: COMP REQ : [id number] RECD: 08/24/[address]: Lucas Benítez COMP: 08/24/23 ENTERED: 08/24/23-[address]: Solange Ramsay MD ORDERED: CMP, C Reactive Prot, Lip Test Result Flag Reference Sodium 139 135-145 mmol/L Potassium 4.0 3.3-5.1 mmol/L CL 106 96-108 mmol/L CO2 25 22-29 mmol/L Gap 12 12-20 BUN 8 L 9-16 mg/dL Creat 0.74 0.5-1.4 mg/dL EGFR > 60 NOTE: For -Mongolian individuals, multiply the result by 1.210. Chronic Kidney Disease: Estimated GFR < 60 mL/min/1.73m2 Severe Kidney Disease: Estimated GFR < 15 mL/min/1.73m2 Glucose, Random 97 60-115 mg/dL CA 9.1 8.4-10.2 mg/dL Total Bili 0.2 0.0-1.0 mg/dL AST (GOT) 10 5-31 U/L ALT (GPT) 11 0-31 U/L CRP 0.29 < or = 0.50 mg/dL Protein, Total 6.9 6.5-8.0 g/dL Alb 4.0 3.5-5.0 g/dL Alk Phos 53 39-117 U/L Lipase 23 8-78 U/L Name: Meron Sanchez Age/Sex: 38/F : 1985 Unit#: [id number] Attend Dr: Lucas Benítez Re08/24/23 Status: DEP REF Location: [facility] Disch: SPEC : [id number] AALIYAH: 08/24/23 STATUS: COMP REQ : [id number] RECD: 08/24/[address]: Lucas Benítez COMP: 08/24/23 ENTERED: 08/24/[address]: Solange Ramsay MD ORDERED: CBC Auto Diff Test Result Flag Reference WBC 8.1 4.8-10.8 X10*3/uL RBC 4.43 4.20-5.50 X10*6/uL HGB 12.9 12.0-16.0 g/dl HCT 39.5 37.0-47.0 % MCV 89.2 80.0-98.0 fL MCH 29.1 27.0-33.0 pg MCHC 32.7 31.0-35.0 g/dl RDW 12.4 11.0-16.0 % PLT 398 160-400 X10*3/uL MPV 10.6 9.4-12.3 fL Neut Pct Auto 59.3 45-73 % ImGran Pct Auto 0.4 0.0-0.4 % Lymp Pct Auto 33.2 20-40 % Mccreary Pct Auto 3.9 2-11 % Eos Pct Auto 2.5 0-4 % Baso Pct Auto 0.7 0-2 % NRBC Pct Auto 0.0 0.0-0.2 /100WBC ANC Neut Abs # 4.8 2.0-8.3 x10*3/uL ImGran Abs Auto 0.03 0.00-0.03 X10*3/uL Lymph Abs Auto 2.7 1.2-4.9 X10*3/uL Mccreary Abs Auto 0.3 0.1-1.2 X10*3/uL Eos Abs Auto 0.2 0.0-0.4 X10*3/uL Baso Abs Auto 0.1 0.0-0.2 X10*3/uL NRBC Abs Auto 0.000 0.0-0.012 X10*3/uL Assessment and Plan Assessment & Plan (1) Mixed dyslipidemia: Code(s): E78.2 - Mixed hyperlipidemia Plan: Fasting lipid panel ordered. Reinforced importance of following a low cholesterol diet and getting regular exercise (2) Asteatotic eczema: Code(s): L30.8 - Other specified dermatitis Plan: Avoid frequent handwashing, moisturize hands after washing, prescription sent for fluocinonide 0.05% cream, apply to affected areas twice a day for no more than 10 days at a time (3) Advanced directives, counseling/discussion: Code(s): Z71.89 - Other specified counseling Plan: Initiated the conversation about Advanced Directives. Advanced Directives help patients prepare for current and future decisions about their medical treatment and place of care. Discussed with patient that it is a process where a patients current condition and prognosis are reviewed, their wishes for information regarding their illness are elicited, and likely medical dilemmas are presented and options discussed. Healthcare proxy form completed today. The form can be amended as needed, reviewed yearly and make changes as needed (4) Annual visit for general adult medical examination with abnormal findings: Code(s): Z00.01 - Encounter for general adult medical examination with abnormal findings Plan: Will check appropriate labs. Recommended dental visit every 6 months and regular eye exams, at least every 2 years. Take adequate calcium in diet and vitamin-D 3 at 2000 IU per cap once a day, in addition to weight-bearing exercises to help maintain good muscle tone and weight control. Instructed to do self-breast exam, and recommended to get yearly mammogram, starting at age 40. Up-to-date with her cervical cancer screening, now going to be seen at OBGYN at [facility]. Patient does not want to get flu shots but did get her pneumonia vaccination in 2019 (5) Mild intermittent asthma in adult without complication: Code(s): J45.20 - Mild intermittent asthma, uncomplicated Plan: Continue Symbicort 1 inhalation twice a day and albuterol inhaler every 6 hours as needed for episodes of bronchospasm and wheezing. Declines flu vaccine, but did receive her pneumonia vaccination in 2019 (6) URBAN (obstructive sleep apnea): Comment: Currently being followed at [facility] program, with last sleep study done 05/11/2022, Dr Silver , had tonsillectomy Code(s): G47.33 - Obstructive sleep apnea (adult) (pediatric) Plan: Followed at [facility] asleep program (7) Refused influenza vaccine: Code(s): Z28.21 - Immunization not carried out because of patient refusal (8) Obesity (BMI 30-39.9): Code(s): E66.9 - Obesity, unspecified Plan: . Discussed need to increase activity and weight reduction. Recommended focusing on improving health instead of dieting. Mediterranean diet is a he althy diet that helps, limit food high in fat, sugar, and calories. Eat slowly, pay attention to portion sizes, plan your meals ahead of time, start regular physical activity, at least 150 minutes of moderate intensity exercise, or 90 minutes per week of vigorous exercise. Keeping a food diary, tracking what you eat and your physical activity can help assess what improvements you can make. There are many health problems associated with being overweight/obese, so it is important to improve your diet and exercise. There are medications and surgical options available, but Lifestyle changes are the 1st step. (9) SI (sacroiliac) pain: Code(s): M53.3 - Sacrococcygeal disorders, not elsewhere classified Plan: Referred to physical therapy Orders: Orders PT Evaluation and Treatment 01/14/24 M53.3 - Sacrococcygeal disorders, not elsewhere classified Lipid Panel 01/14/24 E78.2 - Mixed hyperlipidemia Medications: New fluocinonide 0.05% 1 appl topical BID 30 grams 0RF 10 days L30.8 - Other specified dermatitis Coding Level of Care Code Est Pt Prev Care 18-39y(46607) Diagnoses Mixed dyslipidemia E78.2 Asteatotic eczema L30.8 Advanced directives, counseling/discussion Z71.89 Annual visit for general adult medical examination with abnormal findings Z00.01 Mild intermittent asthma in adult without complication J45.20 URBAN (obstructive sleep apnea) G47.33 Refused influenza vaccine Z28.21 Obesity (BMI 30-39.9) E66.9 SI (sacroiliac) pain M53.3 Additional Codes KRISTY-7 Assessment Billing - KRISTY-7 Assessment Tool: KRISTY-7 Assessment 03303 ([id number]) Vital Signs *Quality* - Advance Care Planning discussion: Completed/Scanned ([id number]) Vital Signs *Quality* - Time spent: 16-45 minutes ([id number])
[2024-01-14 09:37] VITALS: BP 122/80; PULSE 63; O2SAT 98; BMI 35.2
== END 2024-01-14 10:38 | disposition home or self-care (01) ==
PROVIDERS: PCP Internal Medicine; Visit Provider Internal Medicine
DX: Z00.00 Encounter for general adult medical examination without abnormal findings (principal); E78.2 Mixed hyperlipidemia; L30.8 Other specified dermatitis; Z71.89 Other specified counseling; J45.20 Mild intermittent asthma, uncomplicated; G47.33 Obstructive sleep apnea (adult) (pediatric); Z28.21 Immunization not carried out because of patient refusal; E66.9 Obesity, unspecified; M53.3 Sacrococcygeal disorders, not elsewhere classified
CPT/HCPCS: 1123F; 99395; 99497

== ENCOUNTER 2024-01-14 10:41 | Outpatient (REF) | payer OTHER, SELFPAY ==
[2024-01-14 13:50] LABS: Cholesterol 215 mg/dL (<200); HDL Cholesterol 54 mg/dL (>40); LDL Cholesterol Calculated 141 mg/dL (<100); Triglycerides 102 mg/dL (<150)
== END 2024-01-14 10:42 | disposition home or self-care (01) ==
LOC: HO.HMGCLDS 10:41
PROVIDERS: PCP Internal Medicine; Visit Provider Internal Medicine
DX: E78.2 Mixed hyperlipidemia (principal)
CPT/HCPCS: 36415; 80061

== ENCOUNTER 2024-01-18 12:49 | Outpatient (AMB) | payer OTHER, SELFPAY ==
--- NOTE | 2024-01-18 12:50 | MHC.OFFVIS ---
Intake Visit Reasons: 8 week follow up Intake Note: Meron presents as a video call for her 8 week follow up. CC: States that she is just wanting to figure out what is going on - no new concerns at this time. Certified Peer Specialist Required: No Allergies No Known Allergies Allergy (Verified 01/18/24 12:50) HPI Comments Details: 38 y.o F with PMH of who is here for LLQ pains. 11/25/23: Pt reports having sharp pain for a few months - initially felt positional but now seems to occur despite not changing any position. Does not radiate. Very fleeting 30-60 seconds. Does occur multiple times a day. No nausea or vomiting. No changes in stools. No fevers or chills. No new meds. No pelvic surgeries. 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 Does have stress urinary incontinence. 01/18/24: Here for follow-up tele visit. Has persistent fleeting LLQ pains. Does not limit activities. Stools are regular. pelvic US normal. [facility] Medical History Pain of right sacroiliac joint History of abnormal cervical Papanicolaou smear Refused influenza vaccine Anxiety and depression Enlarged tonsils URBAN (obstructive sleep apnea) SI (sacroiliac) pain Mixed dyslipidemia Obesity (BMI 30-39.9) Migraine Mild intermittent asthma in adult without complication Surgical History History of adenoidectomy Hx of tonsillectomy Hx of LASIK History of wisdom tooth extraction Family History Father No problems noted. Mother HTN (hypertension) Cervical cancer Substance use disorder Maternal Grandmother Substance use disorder Maternal Grandfather Cancer Paternal Grandmother No problems noted. Paternal Grandfather Cancer of thyroid Substance use disorder Brother No problems noted. Sister No problems noted. Son No problems noted. Daughter No problems noted. Social History Housing: House Alcohol intake: never Patient Tobacco Use Status: Former Tobacco user Years Smoked: 15 yrs e-Cigarette/Vaping Use: Currently Using Second Hand Smoke Exposure: No Substance Use Type: Marijuana service: No Current occupational status: employed Sexual orientation: Straight/Heterosexual Gender identity: Female Cognitive needs: No Hearing needs: No Vision needs: No Female Reproductive History Menstrual Age of Menarche: 15 Physical Exam Vital Signs: video visit (converted to phone only due to signals) Telehealth Telehealth Telehealth Platform: [employer] Location of provider rendering services: practice address Location of patient: address on file Patient Identification confirmed using: Name, : Yes Telehealth method: video (Later converted to voice only) Patient verbally consented to treatment: Yes Patient verbally consented to billing insurance company: Yes Patient informed of any privacy concerns related to visit: Yes Minutes spent on Phone/Video with Pt.: 8 Assessment & Plan Assessment & Plan (1) Pain pelvic: Code(s): R10.2 - Pelvic and perineal pain Category: Medical Plan Reviewed with the patient that pain not consistent with colonic etiology however, can proceed with a colonoscopy for evaluation. If the colonoscopy is negative, will advise other avenues for elevation and pain control. Plan: - colonoscopy to be booked on elective basis - PEG prep prescribed instructions reviewed Follow-up contingent on the procedure Coding Level of Care Code Tele Est Pt Level 3 (20863) Diagnoses Pain pelvic R10.2
== END 2024-01-18 15:32 | disposition home or self-care (01) ==
LOC: HO.HGI 12:49
PROVIDERS: PCP Internal Medicine; Visit Provider Internal Medicine
DX: R10.2 Pelvic and perineal pain (principal)
CPT/HCPCS: 99213

== ENCOUNTER → 2024-01-18 12:49 | Outpatient (BNVA) | payer OTHER, SELFPAY | PROVIDERS: PCP Internal Medicine; Visit Provider Internal Medicine ==

== ENCOUNTER 2024-11-17 13:25 | Outpatient (AMB) | payer OTHER, SELFPAY ==
[2024-11-17 13:31] VITALS: BP 122/80; PULSE 60; O2SAT 98
--- NOTE | 2024-11-17 13:31 | AM.OFFWIN_ITS ---
Intake Vital Signs 3 11/17/24 13:31 Weight 221 lb BP 122/80 Blood Pressure Location Rt brachial Position Sitting Pulse 60 Pulse Source Pulse Oximeter Pulse Oximetry (%) 98 Oxygen Delivery Method Room Air Intake Visit Reasons: EP pain on LT knee, can't put pressure on it Intake Note: Patient here for left knee pain that has been present for about 1 month. she would also like a referral to derm for pimple like spot under right side of chin. Patient Tobacco Use Status: Former Tobacco user Allergies No Known Allergies Allergy (Verified 11/17/24 13:33) Do you need a note to return to daycare/school/sports/work: No HPI HPI Comments 2 History of Present Illness0 Details 39 y/o Female patient who presents to [facility] walk in clinic with c/o Left Knee pain x 1 month. Pt denies Injury or trauma. Reports pain with ROM, walking up the stairs and Bending. Pt c/o Small Lesion/pimple right Mandible (Skin lesion) that is Tender. Reports noticing it 2 weeks ago. [facility] Medical History (Updated 11/17/24 @ 13:57 by Marion Benitez NP) Skin lesion of cheek Left knee pain Pain of right sacroiliac joint History of abnormal cervical Papanicolaou smear Refused influenza vaccine Anxiety and depression Enlarged tonsils URBAN (obstructive sleep apnea) SI (sacroiliac) pain Mixed dyslipidemia Obesity (BMI 30-39.9) Migraine Mild intermittent asthma in adult without complication Surgical History History of adenoidectomy Hx of tonsillectomy Hx of LASIK History of wisdom tooth extraction Family History Father No problems noted. Mother HTN (hypertension) Cervical cancer Substance use disorder Maternal Grandmother Substance use disorder Maternal Grandfather Cancer Paternal Grandmother No problems noted. Paternal Grandfather Cancer of thyroid Substance use disorder Brother No problems noted. Sister No problems noted. Son No problems noted. Daughter No problems noted. Social History Housing: House Alcohol intake: never Patient Tobacco Use Status: Former Tobacco user Years Smoked: 15 yrs e-Cigarette/Vaping Use: Currently Using Second Hand Smoke Exposure: No Substance Use Type: Marijuana service: No Current occupational status: employed Sexual orientation: Straight/Heterosexual Gender identity: Female Cognitive needs: No Hearing needs: No Vision needs: No Female Reproductive History Menstrual Age of Menarche: 15 Review of Systems Const All systems reviewed & are unremarkable except as noted in HPI and below Physical Exam Vital Signs: Last Vital Signs Pulse 60 11/17/24 13:31 BP 122/80 11/17/24 13:31 Pulse Ox 98 11/17/24 13:31 Oxygen Delivery Method Room Air 11/17/24 13:31 Const General: no acute distress Nutritional Appearance: obese morbidly obese Orientation/consciousness: patient oriented x3 Skin General skin exam: dry skin Full body images: 2 1. Small skin lesion 0.5 cm Neuro General: patient oriented x3, gait normal and moves all extremities Extrem Right lower extremity: normal to inspection and full ROM Left lower extremity: knee Details: normal to inspection, tenderness Location: of the patella and normal ROM; no swelling, no ecchymosis and no crepitus Psych Speech and movement: Normal speech and movement present Assessment & Plan Assessment & Plan (1) Left knee pain: Code(s): M25.562 - Pain in left knee Qualifiers: Chronicity: acute Qualified Code(s): M25.562 - Pain in left knee Plan: NSAIDs for pain relief. Ice/Hot Ordered PT Ordered Xray Knee. Knee Brace. (2) Skin lesion of cheek: Code(s): L98.9 - Disorder of the skin and subcutaneous tissue, unspecified Plan: Advised to call Dermatology (Dr. Chavez) for an appointment. Orders: Orders 2 PT Evaluation and Treatment Today M25.562 - Pain in left knee Coding Level of Care Code Est Pt Level 4 (37965) Diagnoses Acute pain of left knee M25.562 Chronicity: acute Skin lesion of cheek L98.9 Time Spent (min) 20
--- OUTSIDE RECORDS SUMMARY | 2024-11-17 16:11 | XMS_ITS | Clinical Summary ---
Author Organization [facility] Address [address] [place] [address] Care Team Providers Care Glue Bone Drier Name Role Phone Socrates Babb MD Primary Care Provider [phone] Socrates Babb MD Unavailable Medications Multiple Vitamins-Mineral s (One-A-Day Womens Healthy Skin) Tab 0 01/01/2012 Active Sertraline HCl (ZOLOFT) 50 MG tablet TAKE 1 TABLET DAILY DIRECTED. 30 1 02/09/2012 Active Active Problems Problem Noted Date Diagnosed Date Adjustment disorder with anxiety 09/16/2012 Opioid dependence 02/09/2012 Anxiety disorder 01/01/2012 Immunizations Name Administration Dates Next Due Hep B (adult) 11/11/1999,05/13/1999,04/11/1999 MMR 04/11/1999 Td (adult), adsorbed 04/03/2003 Family History Medical History Relation Name Comments Cancer - Cervical Mother Cervical C ancer : Mother CAD/PVD - Early Other Coronary Art hailey Disease : Family History Cancer - Thyroid Paternal grandfather Thy roid Cancer : Paternal Grandfather Relation Name Status Comments Mother Other Paternal grandfather Social History Tobacco Use Types Packs/Day Years Used Date Smoking Tobacco: Never Assessed Comments:Smoking Status:Curr ent some day smoker Comments Unknown Sex and Gender Information Value Date Recorded Sex Assigned at Not on file Legal Sex Female 3:11 PM EDT Gender Identity Not on file Sexual Orientation Not on file Last Filed Vital Signs Vital Sign Reading Time Taken Comments Blood Pressure 120/80 09/16/2012 8:36 AM EST LUE/Sitting LUE/Sitting Pulse 68 09/16/2012 8:36 AM EST L Radial,Normal Temperature 37 ??C (98.6 ??F) 09/16/2012 8:3 6 AM EST Oral Respiratory Rate 16 09/16/2012 8:36 AM EST Normal Oxygen Saturation - - Inhaled Oxygen Concentration - - Weight 73.5 kg (161 lb 15.9 oz) 09/16/2012 8:36 AM EST Height 167 cm (5' 5.75 ) 09/16/2012 8:3 6 AM EST Body Mass Index 26.34 09/16/2012 8:36 AM EST Plan of Treatment Health Maintenance Due Date Last Done Comments Hepatitis C Screening 1987 DTaP/Tdap/Td (2 - Tdap) 04/04/2003 04/03/2003 Pap Smear 2003 COVID-19 Vaccine (2023-2 5 season) 2024 Influenza (#1) 2024 Zoster (Shingrix) (1 of 2) 2037 Hep B Completed 11/11/1999, 05/13/1999, 04/11/1999 HPV Vaccine Aged Out No longer eligi ble based on patient's age to complete this topic Hep A Aged Out No longer eligi ble based on patient's age to complete this topic Hib Aged Out No longer eligi ble based on patient's age to complete this topic Meningococcal ACWY Aged Out No longer eligible based on patient's age to complete this topic Pneumococcal Aged Out No longer eligi ble based on patient's age to complete this topic Care Teams Glue Bone Drier Relationship Specialty Start Date End Date Socrates Babb MD [address] [place] [id number] PCP - General 03/16/23 Socrates Babb MD [address] [place] [address] PCP - Backup PCP Family Medicine 09/09/23
--- OUTSIDE RECORDS SUMMARY | 2024-11-17 16:11 | XMS_ITS | Clinical Summary ---
Author Organization [facility] Address [address] [place], [place] [id number] Care Team Providers Care Blackjack Pit Boss Name Role Phone Unavailable Primary Care Provider Unavailabl e Social History Tobacco Use Types Packs/Day Years Used Date Smoking Tobacco: Never Assessed Sex and Gender Information Value Date Recorded Sex Assigned at Not on file Gender Identity Not on file Sexual Orientation Not on file Last Filed Vital Signs Vital Sign Reading Time Taken Comments Blood Pressure 92/58 10/04/2010 5:05 PM EST Pulse 93 10/04/2010 5:05 PM EST Temperature 36.5 ??C (97.7 ??F) 10/04/2010 5:05 PM ES T Respiratory Rate 16 10/04/2010 5:05 PM EST Oxygen Saturation - - Inhaled Oxygen Concentration - - Weight - - Height - - Body Mass Index - - Plan of Treatment Health Maintenance Due Date Last Done Comments Hepatitis C Virus Screening 1987 HIV Screening 2000 DTaP/Tdap/Td Vaccines (1 - Tdap) 2006 Hepatitis B Vaccines (1 of 3 - 19+ 3-dose series) 2006 Pap Smear (Ages 21-65) 2008 Influenza Vaccine 03/10/2024 COVID-19 Vaccine ( - 2023-2 5 season) 2024 HPV Vaccines Aged Out No longer eligi ble based on patient's age to complete this topic Pneumococcal Vaccine: Pediat terrance (0-5 Years) and At-Risk Patients (6 to 49 Years) Aged Out No longer eligible b ased on patient's age to complete this topic
--- OUTSIDE RECORDS SUMMARY | 2024-11-17 16:11 | XMS_ITS | Data Portability ---
Author Organization [place] [facility] Address [address] [address] Care Team Providers Care Flux Tube Attendant Name Role Phone BARTOLO CONNELL Primary Care Provider [phone] Assessment Encounter Date Assessment Date Assessment LastModified by Organization Details LastModified Time 01/22/2024 01/22/2024 Right serous effusion has resolved spontaneously. No specific intervention is recommended for it at this time. Patient was denied a postoperative sleep study to confirm resolution of her severe obstructive sleep apnea. We will follow through with another attempt to get a sleep study. She does feel some improvement in her sleep but understands she continues to snore [email or web address] Not available 01/22/2024 14:55:22 10/27/2024 10/27/2024 39-year-old female presents for evaluation of eustachian tube dysfunction. On exam, bilateral tympanic membranes are intact with well aerated middle ear spaces. Audiometric testing demonstrated borderline normal hearing bilaterally. Type C tympanometry bilaterally. We discussed that underlying allergies may be contributing to eustachian tube dysfunction and recommended allergy testing for further evaluation. Patient would like to proceed and will follow-up to review the results. [email or web address] Not available 10/27/2024 11:39:27 Plan of Treatment Reminders Order Date Submit Date Provider Last Modified By Organization Details Last Modified Time Details Appointments Allergy Test 2024 10:30A M [facility] Not available Not available Not available Establish ed 15 2024 11:15A M JANINE GALLEGOS PA-C Not available Not available Not available Lab None recorded. Referral None recorded. Procedures allergy testing, skin prick (PROC) 2024 025 [facility], [address] [place], [address], 10/28/2024 13:43:42 intraderm al allergy skin testing (PROC) 2024 025 [facility], [address] [place], [address], 10/28/2024 13:43:42 pulmonary function test procedure (PROC) 2024 025 [facility] Sleep Medicine [facility], [address] [place], [address], 10/28/2024 13:43:42 pulse oximetry (PROC) 2024 025 [facility] Sleep Medicine [facility], [address] [place] [address], [id number], 10/28/2024 13:43:43 polysomno graphy (PROC) - postop PSG at [facility] 2023 024 [facility], [address] [place] [address], [id number], 02/03/2024 11:26:34 Surgeries None recorded. Imaging None recorded. Medication Orders None recorded. Patient TargetsNo targets recorded. Patient InstructionsNo instructions recorded. Reason for Referral None Reported. Results Created Date Observation Date Name Description Value Unit Range Abnormal Flag Note LastModifiedBy Organization Detail LastModifiedTime 03/30/2009/17/2023 imagi ng/di agnos tic resul t No observ ation record ed. [email or web address] Not Available 06:13:51 03/30/2009/17/2023 imagi ng/di agnos tic resul t No observ ation record ed. [email or web address] Not Available 06:13:52 03/30/20 24 07/14/2022 imagi ng/di agnos tic resul t No observ ation record ed. [email or web address] Not Available 06:14:16 03/20/20 25 audio gram No observ ation record ed. BARCODE Not Available 2024 13:38:58 Result Notes None recorded. Problems Name Problem SNOMED Code Status Onset Date Resolution Date Notes Provider Name and Address Organization Details Recorded Time Obstructi ve sleep apnea syndrome 03369308 Active 2021 Obstructi ve sleep apnea (adult) (pediatri c); Note: Date Diagnosed : 07/14/2022 10:46 AM (G47.33) Note: Date Diagnosed : 07/14/2022 10:46 AM (G47.33) LUCRECIA CORONA MD [address] [place] [address],[place] [address], [place], [address] , [place] - [facility] 4 13:24:53 Deviated nasal septum 784047524 Active 2021 Deviated nasal septum; Note: Date Diagnosed : 07/14/2022 10:46 AM (J34.2) Note: Date Diagnosed : 07/14/2022 10:46 AM (J34.2) LUCRECIA CORONA MD [address] [place] [address],[place] [address], [place], [address] , [facility] - [facility] 4 13:24:53 Hypertrop hy of tonsils 66993304 Active 2021 Hypertrop hy of tonsils; Note: Date Diagnosed : 07/14/2022 10:46 AM (J35.1) Not Available [facility] 4 03:23:48 Hypertrop hy of tonsils AND adenoids 86796017 Active 2023 Hypertrop hy of tonsils with hypertrop hy of adenoids; Note: Date Diagnosed : 08/14/2023 10:49 AM (J35.3) Not Available [facility] 4 03:23:48 Disorder of right Eustachia n tube 77997856135 60922 Active 2021 Other specified disorders of Eustachia n tube, right ear; Note: Date Diagnosed : 07/14/2022 10:46 AM (H69.81) Note: Date Diagnosed : 07/14/2022 10:46 AM (H69.81) LUCRECIA CORONA MD [address] [place] [address],[place] [address], [place], [address] , [facility] [place] 13:25:04 Bilateral disorder of Eustachia n tubes 14929651167 80110 Active 2024 JENNIFER SEBASTIAN, AUD 100 [facility] 100, [place], [address] , [facility] [place] 11:01:03 Allergic rhinitis 88145861 Active 2024 JANINE GALLEGOS PA-C 100 [facility] 100, [place], [address] , [facility] - [facility] [place] 11:40:09 Problem Notes None recorded. Procedures Surgical History Date Name Laterality Status Provider Name and Address Organization Details Recorded Time 10/27/2024 Air & Speech Audio with Tymps (80790, 91249 & 27434) completed ANNELIESE GATES 100 [facility],[place] [address], [place], [address], [facility] [place] 10/27/2024 11:00:31 Imaging Results Imaging Date Name Status LastModified by Organiz ation Details LastModified Time 09/17/2023 imaging/diagno stic result completed Information not available 03/30/2024 06:13:51 09/17/2023 imaging/diagno stic result completed Information not available 03/30/2024 06:13:52 07/14/2022 imaging/diagno stic result completed Information not available 03/30/2024 06:14:16 10/27/2024 audiogram completed BARCODE Information no t available 10/27/2024 13:38:58 Procedure Notes None recorded. Medical Equipment None Reported. Allergies No known drug allergies Medications Name Sig Start Date Stop Date Status Note LastModified by Organization Details LastModified Time acetamino phen 160 mg/5 mL oral liquid 10/27 completed Medicati on ID: [id number] B rand Name: acetamin ophen Se nd Method: E-Prescr ibed Sub s Allowed: subs OK Medic ationGen ericName : acetamin ophen Not Available Not Available Not Available Lidocaine Viscous 2 % mucosal solution Take 5 ml by mouth four times a day as needed for pain 10/27 completed Medicati on ID: [id number] D uration Value: 7 Brand Name: Lidocain e Viscous Send Method: E-Prescr ibed Sub s Allowed: subs OK Speci al Instruct ion: swish and spit Med icationG enericNa me: Lidocain e Viscous Not Available Not Available Not Available sumatript an 100 mg tablet 11/08 completed Medicati on ID: [id number] B rand Name: sumatrip rothman succinat e Send Method: E-Prescr ibed Sub s Allowed: subs OK Medic ationGen ericName : sumatrip rothman succinat e Not Available Not Available Not Available rizatript an 10 mg tablet 10/27 completed Medicati on ID: [id number] B rand Name: rizatrip rothman Send Method: E-Prescr ibed Sub s Allowed: subs OK Medic ationGen ericName : rizatrip rothman Not Available Not Available Not Available omeprazol e 20 mg capsule,d elayed release TAKE 1 CAPSULE BY MOUTH EVERY DAY 10/27 completed Not Available Not Available Not Available acetamino phen 160 mg/5 mL oral elixir Take 15 ml by mouth every six hours as needed for pain 10/27 completed Medicati on ID: [id number] D uration Value: 4 Brand Name: acetamin ophen Se nd Method: E-Prescr ibed Sub s Allowed: subs OK Medic ationGen ericName : acetamin ophen Not Available Not Available Not Available ibuprofen 100 mg/5 mL oral suspensio n 10/27 completed Medicati on ID: [id number] B rand Name: ibuprofe n Send Method: E-Prescr ibed Sub s Allowed: subs OK Medic ationGen ericName : ibuprofe n Not Available Not Available Not Available ipratropi um bromide 42 mcg (0.06 %) nasal spray USE 2 SPRAYS INTO EACH NOSTRIL 4 TIMES A DAY active Not Available Not Available No t Available fluocinon ayesha 0.05 % topical cream APPLLY TOPICALL Y 2 TIMES A DAY FOR 10 DAYS active Not Available Not Available No t Available ondansetr on 4 mg disintegr ating tablet 10/27 completed Medicati on ID: [id number] B rand Name: micah mera Send Method: E-Prescr ibed Sub s Allowed: subs OK Medic ationGen ericName : kodakdanskandis mera Not Available Not Available Not Available fluticaso ne propionat e 50 mcg/actua tion nasal spray,nicole pension 10/27 completed Medicati on ID: [id number] B rand Name: fluticas one propiona te Send Method: E-Prescr ibed Sub s Allowed: subs OK Medic ationGen ericName : fluticas one propiona te Not Available Not Available Not Available Ventolin HFA 90 mcg/actua tion aerosol inhaler 2 inhalati ons as needed by inhalati on route. active Not Available Not Available No t Available Symbicort 160 mcg-4.5 mcg/actua tion HFA aerosol inhaler 2 inhalati ons every 12 hours by inhalati on route. active Not Available Not Available No t Available albuterol sulf 90 mcg/actua tion breath activated powder inhaler,s ensor 11/08 completed Medicati on ID: [id number] B rand Name: ProAir HFA Send Method: E-Prescr ibed Sub s Allowed: subs OK Medic ationGen ericName : ProAir HFA Not Available Not Available Not Available [facility] O[facility] 75 mg disintegr ating tablet 1 mg as needed by oral route. active Not Available Not Available No t Available Lidocaine Pain Relief 4 % topical spray Ada 1 spray into mouth four times a day as needed for pain 10/27 completed Medicati on ID: [id number] D uration Value: 7 Brand Name: Lidocain e Pain Relief S end Method: E-Prescr ibed Sub s Allowed: subs OK Medic ationGen ericName : Lidocain e Pain Relief Not Available Not Available Not Available Vitals Date Recorded Body height Body mass index (BMI) Body weight Provider Name and Address Organization Details Last Updated DateTime 01/22/2024 167.64 cm 34.7 kg/m2 33324.36 g Martine Burns [place] - [facility] 01/22/2024 14:35:44 Social History None recorded. Functional Status None recorded. Mental Status None recorded. Family History Nothing Reported. Medical History Condition Response Hearing Loss N Gynecological HistoryNo gynecological history recorded. Obstetrics History GPAL:G 0 P 0 0 0 0 Past Encounters Encounter ID Performer Location Encounter Start Date Encounter Closed Date Diagnosis/Indication Diagnosis SNOMED-CT Code Diagnosis ICD10 Code Diagnosis Note [id number] LUCRECIA CORONA MD [facility] [address] [address] 01/22/2024 14:21:36 01/22/2024 15:26:15 Obstructive sleep apnea syndrome 78674564 G47.33 Disorder o f right Eustachian tube 5097932357 546889 H69.81 [id number] ELIA DORADO MD [facility] [address] [address] 10/27/2024 10:23:01 10/27/2024 11:29:58 Bilateral disorder of Eustachian tubes 5710125666 170841 H69.83 Audiologic al evaluation results: Right ear: {{Normal N ormal through 2 kHz Mild M oderate Mo derately-s evere Anna re Profoun d Borderli ne normal #}} {{hearing hearing. s loping to a mild slopi ng to a moderate s loping to moderately severe slo ping to severe slo ping to profound f lat high frequency low frequency mid frequency cookie bite newman curve risi ng to normal hearing#}} {{with* se nsorineura l hearing loss with condu ctive hearing loss with mixed hearing loss with}} {{excellen t* good fa ir poor no measurable }} word recognitio n. Left ear: {{Normal N ormal through 2 kHz Mild M oderate Mo derately-s evere Anna re Profoun d Borderli ne normal #}} {{hearing hearing. s loping to a mild slopi ng to a moderate s loping to moderately severe slo ping to severe slo ping to profound f lat high frequency low frequency mid frequency cookie bite newman curve risi ng to normal hearing#}} {{with* se nsorineura l hearing loss with condu ctive hearing loss with mixed hearing loss with}} {{excellen t* good fa ir poor no measurable }} word recognitio n. Tympanomet ry: Right Ear:{{Type A Type As Type Ad Type C* Type C, shallow & rounded Ty pe B Type B with large volume Cou ld not maintain a hermetic seal}} Left Ear:{{Type A Type As Type Ad Type C* Type C, shallow & rounded Ty pe B Type B with large volume Cou ld not maintain a hermetic seal}} Allergic rhinitis 666909 04 J30.89 Health Concerns Section Related Observation LastModified by Organization Detai ls LastModified Time None Recorded Concern Status LastModified by Organization Details LastModified Time None Recorded Advance Directives Directive None Recorded Payers Encounter Date Sequence Insurance Name Policy Number Policy Delgado Covered Member ID Delgado Member ID Guarantor Name 01/22/2024 1 [facility] [facility] (MEDICAID O) [place] Meron Sanchez [id number] Meron Sanchez 10/27/2024 1 [facility] (MEDICAID HMO) [place] Meron Sanchez [id number] Meron Sanchez Notes Date Note Type Note Provider Name and Address Organization Details Recorded Time 01/22/2024 text/html 05/11/2022 PSG BM C AHI 32.82/7/24 T&Apath benign from left and right tonsil and adenoidfluid in right ear since October 2023feels it fluctuates from day to day postop PSG was denied by insurance LUCRECIA CORONA MD [address] [place] [address], [phone], [facility] - [facility] 01/22/2024 14:55:39 10/27/2024 text/html 39-year-old tameka garcia presents for evaluation of eustachian tube dysfunction. She has history of eustachian tube dysfunction, worse on the right but has not had any surgical intervention. She was last seen for a right sided effusion that resolved spontaneously about a year ago. She reports popping sensation and pressure of the ears, worse on the right. Sometimes this is worse when exercising. Has tried Flonase without improvement. She is not sure if she has any environmental allergies; no prior allergy testing. She denies vertigo, tinnitus, otorrhea, otalgia, and changes in her hearing. Denies prior otologic surgeries. History of adenotonsillectomy for severe sleep apnea. Postop polysomnogram was not covered by insurance to confirm resolution of URBAN. ELIA GRIMALDO MD [address] [place] [address], [place], [address], [facility] - [facility] 10/27/2024 12:24:01 OBGyn Episode No OBEpisode recorded.
--- OUTSIDE RECORDS SUMMARY | 2024-11-17 16:11 | XMS_ITS | Encounter Summary ---
Author Organization [facility] Address [address] [place] [address] Care Team Providers Care Subsea Engineer Name Role Phone Unavailable Primary Care Provider Unavailabl e Encounter Details Date Type Department Care Team (Latest Contact Info) Description 08/12/2020 Lab Requisition [facility] COVID Drive Through [address] [place] [address] [address] [place] [address] Jitendra Wilson PA-C [address] [place] [phone] Encounter for laboratory testing for COVID-19 virus Social History Tobacco Use Types Packs/Day Years Used Date Smoking Tobacco: Never Assessed Sex and Gender Information Value Date Recorded Sex Assigned at Not on file Gender Identity Not on file Sexual Orientation Not on file documented as of this encounter Plan of Treatment Not on file documented as of this encounter Procedures Procedure Name Priority Date/Time Associated Diagnosis Comments COVID-19 (SARS-COV-2) - [facility] Routine 08/12/2020 1:06 PM EST Encounter for laboratory testing for COVID-19 virus [ICD-10-CM] documented in this encounter Results * COVID-19 (SARS-COV-2) (SEMA4) (08/12/2020 1:06 PM EST) COVID-19 RT-PCR NOT-DETEC GERALDINE Not-Detec geraldine 08/15/2020 12:02 AM EST [facility] [place] Comment:Interpretation: The viral RNA was not detected, making the COVID-19 diagnosis less likely. Clinical correlation is highly recommended.Final report signed by Delma Nunes, Ph.D., Laboratory DirectorTests performed at [email or web address] Microbiology Nasopharyngeal swab / Unknown 08/12/2020 1:06 PM EST 08/12/2020 1:06 PM EST Narrative JOSHUA MAHMOOD - 08/15/2020 12:02 AM EST Performed by [facility], [employer], [address] [place] [address], CLIA# [id number] and [place] License# [id number] Jitendra Wilson PA-C MICROBIOLOGY - NERAL ORDERABLES JOSHUA MAHMOOD documented in this encounter Visit Diagnoses Diagnosis Encounter for laboratory testing for COVID-19 virus documented in this encounter
--- OUTSIDE RECORDS SUMMARY | 2024-11-17 16:11 | XMS_ITS | Clinical Summary ---
Author Organization [facility] Address [address] [place] [address] Care Team Providers Care Consulting Engineer Name Role Phone Unavailable Primary Care Provider Unavailabl e Social History Tobacco Use Types Packs/Day Years Used Date Smoking Tobacco: Never Assessed Comments Unknown Sex and Gender Information Value Date Recorded Sex Assigned at Not on file Legal Sex Female 1:33 PM EST Gender Identity Not on file Sexual Orientation Not on file Plan of Treatment Health Maintenance Due Date Last Done Comments DTaP,Tdap,and Td Vaccines (1 - Tdap) 2006 Hepatitis B Vaccines (1 of 3 - 19+ 3-dose series) 2006 Cervical Cancer Screening: P ap Smear 2008 Depression Screening 03/08/2024 HIV Screening 03/08/2024 Hepatitis C Screening 03/08/2024 Social Influencers of Health Screening 03/08/2024 COVID-19 Vaccine (2023-2 5 season) 2024 Influenza Vaccine (Season Ended) 2025 HIB Vaccines Aged Out No longer eligi ble based on patient's age to complete this topic HPV Vaccines Aged Out No longer eligi ble based on patient's age to complete this topic Hepatitis A Vaccines Aged Out No long er eligible based on patient's age to complete this topic IPV Vaccines Aged Out No longer eligi ble based on patient's age to complete this topic MMR Vaccines Aged Out No longer eligi ble based on patient's age to complete this topic Meningococcal ACWY Vaccine Aged Out N o longer eligible based on patient's age to complete this topic Meningococcal B Vaccine Aged Out No l onger eligible based on patient's age to complete this topic Pneumococcal Vaccine: Pediat rics (0 to 5 Years) and At-Risk Patients (6 to 64 Years) Aged Out No longer eligible b ased on patient's age to complete this topic RSV Immunization Patients Un kellen 20 months Aged Out No longer eligible b ased on patient's age to complete this topic Varicella Vaccines Aged Out No longer eligible based on patient's age to complete this topic
== END 2024-11-17 14:21 | disposition home or self-care (01) ==
PROVIDERS: PCP Internal Medicine; Visit Provider Nurse Practitioner Family
DX: M25.562 Pain in left knee (principal); L98.9 Disorder of the skin and subcutaneous tissue, unspecified

== ENCOUNTER 2024-11-17 13:25 | Outpatient (REF) | payer OTHER, SELFPAY ==
--- NOTE | ~2024-11-17 | XR_ITS ---
EXAMINATION: XR KNEE, LEFT CLINICAL INFORMATION: M25.562 - Pain in left knee COMPARISON: None available. TECHNIQUE: Four views of the left knee. FINDINGS: No fracture or joint effusion. Alignment is anatomic. Joint spaces are maintained. No abnormal soft tissue calcification. XR/XR knee LT 4V IMPRESSION: Normal left knee. Electronically signed by: William Becker MD 11/17/2024 02:22 PM EDT
--- OUTSIDE RECORDS SUMMARY | 2024-11-17 16:36 | XMS_ITS | Encounter Summary ---
Author Organization [facility] Address [address] [place] [id number] Care Team Providers Care Topper Press Operator Name Role Phone Unavailable Primary Care Provider Unavailabl e Encounter Details Date Type Department Care Team (Latest Contact Info) Description 08/12/2020 Lab Requisition [facility] COVID Drive Through [address] [place] [address] [address] [place] [address] Jitendra Wilson PA-C [address] [place] [address] [phone] Encounter for laboratory testing for COVID-19 virus [...] Date/Time Associated Diagnosis Comments COVID-19 (SARS-COV-2) - [facility] Routine 08/12/2020 1:06 PM EST Encounter for laboratory testing for COVID-19 virus [ICD-10-CM] documented in this encounter Results * COVID-19 (SARS-COV-2) (SEMA4) (08/12/2020 1:06 PM EST) COVID-19 RT-PCR NOT-DETEC GERALDINE Not-Detec geraldine 08/15/2020 12:02 AM EST [facility] [place] Comment:Interpretation: The viral RNA was not detected, making the COVID-19 diagnosis less likely. Clinical correlation is highly recommended.Final report signed by Delma Nunes, Ph.D., Laboratory DirectorTests performed at [facility] Microbiology Nasopharyngeal swab / Unknown 08/12/2020 1:06 PM EST 08/12/2020 1:06 PM EST Narrative JOSHUA MAHMOOD - 08/15/2020 12:02 AM EST Performed by [facility] [employer] [facility], [employer] [address] [place] [address], CLIA# [id number] and [place] License# [id number] Jitendra Wilson PA-C MICROBIOLOGY - NERAL ORDERABLES JOSHUA MAHMOOD documented in this encounter Visit Diagnoses Diagnosis Encounter for laboratory testing for COVID-19 virus documented in this encounter
--- OUTSIDE RECORDS SUMMARY | 2024-11-17 16:36 | XMS_ITS | Clinical Summary ---
Author Organization [facility] Address [address] [place], [place] [id number] Care Team Providers Care Senior Web Services Developer Name Role Phone Unavailable Primary Care Provider [...]
--- OUTSIDE RECORDS SUMMARY | 2024-11-17 16:36 | XMS_ITS | Clinical Summary ---
Author Organization [facility] it Address [address] [place] [address] Care Team Providers Care Rn Iv Therapy Name Role Phone Unavailable Primary Care Provider [...]
--- OUTSIDE RECORDS SUMMARY | 2024-11-17 16:36 | XMS_ITS | Clinical Summary ---
Author Organization [facility] Address [address] [place] [address] Care Team Providers Care Dirt Bike Racer Name Role Phone Socrates Babb MD Primary Care Provider [phone] Socrates Babb MD Unavailable Medications Multiple Vitamins-Mineral [...] age to complete this topic Care Teams Dirt Bike Racer Relationship Specialty Start Date End Date Socrates Babb MD [address] [place] [address] PCP - General 03/16/23 Socrates Babb MD [address] [place] [address] PCP - Backup PCP Family Medicine 09/09/23
== END 2024-11-17 13:26 | disposition home or self-care (01) ==
LOC: HO.HMGCX 13:25
PROVIDERS: PCP Internal Medicine; Visit Provider Nurse Practitioner Family
DX: M25.562 Pain in left knee (principal); L98.9 Disorder of the skin and subcutaneous tissue, unspecified
CPT/HCPCS: 73564; 99212

== ENCOUNTER → 2024-11-17 13:49 | Outpatient (BNV) | payer OTHER, SELFPAY | PROVIDERS: PCP Internal Medicine; Visit Provider Radiology Diagnostic Radiology | DX: M25.562 Pain in left knee (principal) | CPT/HCPCS: 73564 ==

== ENCOUNTER 2024-12-14 13:16 | Outpatient (AMB) | payer OTHER, SELFPAY ==
[2024-12-14 13:29] VITALS: BP 110/74; PULSE 55; RESP 16; TEMP 36.8; O2SAT 99; BMI 36.2
--- NOTE | 2024-12-14 13:29 | MHC.PC.OV ---
Vital Signs 12/14/24 13:29 Height 5 ft 6 in Weight 224 lb BMI 36.2 BP 110/74 Blood Pressure Location Rt brachial Position Sitting Respiration 16 Pulse 55 Pulse Source Pulse Oximeter Temp 98.3 F Temp Source Oral Pulse Oximetry (%) 99 Oxygen Delivery Method Room Air Intake Visit Reasons: Left knee pain Intake Note: Pt is here today c/o Lt knee pain/ no injured noted Allergies No Known Allergies Allergy (Verified 12/14/24 13:43) Medication List - Last Reconciled 12/14/24 by Solange Ramsay MD fluocinonide 0.05% 1 appl topical BID 10 days inhalational spacing device (BreatheRite MDI Spacer) As directed magnesium oxide 400 mg PO DAILY multivitamin 1 tab PO DAILY rimegepant (Nurtec ODT) mg PO Symbicort 160-4.5 mcg/actuation (budesonide-formoterol) 2 puffs inhalation Q12H NS Ventolin HFA 90 mcg/actuation (albuterol sulfate) 2 inhalations inhalation Q6H PRN NS Tobacco use date assessed: 12/14/24 Dental Screening Dental Screen Date: 12/14/24 Did you have a dental visit in the last 12 months?: Yes Did you have a dental problem in the last 6 months where you did not have access to dental care?: No Was dental information given to patient?: Patient has dentist HPI HPI Comments History of Present Illness Details 39-year-old lady here today complaining of recurrent pain on mediolateral aspect of left knee joint which has been present now on and off for the last several weeks. Has no history of injury, has been resting joint, but no improvement with conservative measures . Patient states that it hurts to walk or stand for extended periods of time. Denies swelling of joints. [facility] Medical History (Updated 12/14/24 @ 13:53 by Solange Ramsay MD) Skin lesion of cheek Left knee pain Pain of right sacroiliac joint History of abnormal cervical Papanicolaou smear Refused influenza vaccine Anxiety and depression Enlarged tonsils URBAN (obstructive sleep apnea) SI (sacroiliac) pain Mixed dyslipidemia Obesity (BMI 30-39.9) Migraine Mild intermittent asthma in adult without complication Surgical History History of adenoidectomy Hx of tonsillectomy Hx of LASIK History of wisdom tooth extraction Family History Father No problems noted. Mother HTN (hypertension) Cervical cancer Substance use disorder Maternal Grandmother Substance use disorder Maternal Grandfather Cancer Paternal Grandmother No problems noted. Paternal Grandfather Cancer of thyroid Substance use disorder Brother No problems noted. Sister No problems noted. Son No problems noted. Daughter No problems noted. Social History Housing: House Alcohol intake: never Patient Tobacco Use Status: Former Tobacco user Years Smoked: 15 yrs e-Cigarette/Vaping Use: Currently Using Second Hand Smoke Exposure: No Substance Use Type: Marijuana service: No Current occupational status: employed Sexual orientation: Straight/Heterosexual Gender identity: Female Cognitive needs: No Hearing needs: No Vision needs: No Female Reproductive History Menstrual Age of Menarche: 15 Questionnaire PHQ-9 Over the last 2 weeks, how often have you been bothered by any of the following problems? 1. Little interest or pleasure in doing things: not at all 2. Feeling down, depressed, or hopeless: not at all 3. Trouble falling or staying asleep, or sleeping too much: several days 4. Feeling tired or having little energy: several days 5. Poor appetite or overeating: not at all 6. Feeling bad about yourself - or that you are a failure or have let yourself or your family down: not at all 7. Trouble concentrating on things, such as reading the newspaper or watching television: more than half the days 8. Moving or speaking so slowly that other people could have noticed. Or the opposite - being so fidgety or restless that you have been moving around a lot more than usual: not at all 9. Thoughts that you would be better off or of hurting yourself in some way: not at all Total score: 4 Depression Screening Interpretation: Negative Depression Screening Done: Yes 01718 - PHQ-9 Billing: Yes Source: Developed by Drs. Nakul Don, Omayra Haywood, Hunter Tomlin and colleagues, with an educational gallo from [employer] Thrive Questionnaire Date Thrive assessed: 12/11/24 I am a: Patient What is your living situation today?: I have a steady place to live Within the past 12 months, did the food you bought not last and you didn't have the money to get more?: I choose not to answer this question Within the past 12 months, did you worry whether your food would run out before you got money to buy more?: I choose not to answer this question Do you have trouble paying for medicines?: No Do you have trouble getting transportation to medical appointments?: No Do you have trouble paying your heating and electricity bill?: I choose not to answer this question Do you have trouble taking care of your child, family member or friend?: No Do you have trouble with day-to-day activities such as bathing, preparing meals, shopping, managing finances, etc.?: No Are you currently unemployed and looking for a job?: No Are you interested in more education?: Yes Please select the resources that you would like help with: Education Currently or been in a relationship where the following occur: No concerns reported THRIVE Score: 0 AUDIT C Alcohol Use Questionnaire (AUDIT-C) 1. How often do you have a drink containing alcohol?: Never 2. How many drinks containing alcohol do you have on a typical day when you are drinking?: 1 or 2 3. How often do you have six or more drinks on one occasion?: Never Total Score: 0 KRISTY-7 AMB Questionnaire KRISTY-7 Date KRISTY - 7 assessed: 12/14/24 Feeling nervous, anxious, or on edge: 1 = Several days Not being able to stop or control worryin = Several days Worrying too much about different things: 1 = Several days Trouble relaxin = Several days Being so restless that it is hard to sit still: 1 = Several days Becoming easily annoyed or irritable: 2 = More than half the days Feeling afraid as if something awful might happen: 0 = Not at all Total KRISTY-7 score (0-4 normal; 5-9 mild; 10-14 moderate; 15-21 severe): 7 Source: Developed by Drs. Nakul Don, Omayra Haywood, Hunter Tomlin and colleagues, with an educational gallo from [employer] KRISTY-7 Assessment Billing KRISTY-7 Assessment Tool: KRISTY-7 Assessment 58097 Review of Systems Const All systems reviewed & are unremarkable except as noted in HPI and below Denies headache(s) ENT Denies headache(s) Neuro Denies burning sensations, Denies headache(s), Denies lack of coordination and Reports radicular pain (left knee going up thigh) Physical exam (Primary Care) Vital Signs: Last Vital Signs Temp 98.3 F 12/14/24 13:29 Pulse 55 12/14/24 13:29 Resp 16 12/14/24 13:29 BP 110/74 12/14/24 13:29 Pulse Ox 99 12/14/24 13:29 Oxygen Delivery Method Room Air 12/14/24 13:29 BMI result Body Mass Index 36.2 Tobacco/Smoking Status: Tobacco use Status Tobacco use date assessed 12/14/24 12/14/24 13:33 Patient Tobacco Use Status Former Tobacco user 12/14/24 13:33 e-Cigarette/Vaping Use Currently Using 12/14/24 13:33 PHQ-9: PHQ-9 Score PHQ-9: Total score 4 12/14/24 13:54 Depression Screening Interpretation: Negative Thrive Assessment: Date of Thrive Assessment Date Thrive assessed 12/11/24 12/14/24 13:33 Currently or been in a relationship where the following occur: No concerns reported Const General: cooperative and no acute distress Orientation/consciousness: patient oriented x3 HENMT Head: Yes normal to inspection and Yes normocephalic Eyes General: appearance normal, both eyes and all related structures Pupils: Equal, round and reactive pupils present Neck Neck: Yes normal visual inspection, Yes full ROM and Yes no lymphadenopathy Resp Auscultation: clear to auscultation bilaterally Cardio Rate: regular rate Rhythm: regular rhythm Heart sounds: S1 normal heart sound present and S2 normal heart sound present GI Inspection: Yes normal to inspection Palpation (GI): Soft to palpation Auscultation: normal bowel sounds General: Yes deferred (Goes to [facility]) Neuro General: patient oriented x3, tone normal, moves all extremities, no focal motor deficits, CN's II-XI intact bilaterally and deep tendon reflexes 2+ bilaterally Cranial nerves: Yes CN's II-XII intact bilaterally and Yes Equal, round and reactive pupils present Extrem Other: Tenderness on palpation over mediolateral aspect of left knee joint, slight swelling of joint noted over said area, positive crepitus General: Yes full ROM, Yes no joint enlargement, Yes no clubbing, cyanosis or edema and Yes no calf tenderness Psych Appearance: grossly normal and well kempt Mental Status: mental status grossly normal Speech and movement: Normal speech and movement present Affect: normal affect Thought process: Normal thought process present Thought content: Normal thought content present Coding Level of Care Code Est Pt Level 4 (62081) Diagnoses Acute pain of left knee M25.562 Chronicity: acute Obesity (BMI 30-39.9) E66.9 Additional Codes PHQ-9 - 63031 - PHQ-9 Billing: Yes ([id number]) KRISTY-7 Assessment Billing - KRISTY-7 Assessment Tool: KRISTY-7 Assessment 64556 ([id number]) Assessment & Plan Assessment & Plan (1) Left knee pain: Code(s): M25.562 - Pain in left knee Category: Medical Qualifiers: Chronicity: acute Qualified Code(s): M25.562 - Pain in left knee Plan: Ordered MRI of left knee joint, no relief with anti-inflammatory medication, or other conservative measures. Referred for physical therapy (2) Obesity (BMI 30-39.9): Code(s): E66.9 - Obesity, unspecified Category: Medical Plan: Ordered fasting blood sugar, fasting lipid, liver enzymes. Reminded to stay active as much as she can, adherence to healthy eating habits strongly recommended. Orders: Orders MR knee LT wo con 12/14/24 M25.562 - Pain in left knee PT Evaluation and Treatment 12/14/24 M25.562 - Pain in left knee Glucose Fasting 02/07/25 E66.9 - Obesity, unspecified, E78.2 - Mixed hyperlipidemia, Z13.1 - Encounter for screening for diabetes mellitus Lipid Panel 02/07/25 E66.9 - Obesity, unspecified, E78.2 - Mixed hyperlipidemia, Z13.1 - Encounter for screening for diabetes mellitus Aspartate Amino Transferase 02/07/25 E66.9 - Obesity, unspecified, E78.2 - Mixed hyperlipidemia, Z13.1 - Encounter for screening for diabetes mellitus Alanine Aminotransferase 02/07/25 E66.9 - Obesity, unspecified, E78.2 - Mixed hyperlipidemia, Z13.1 - Encounter for screening for diabetes mellitus
--- OUTSIDE RECORDS SUMMARY | 2024-12-14 14:32 | XMS_ITS | Clinical Summary ---
Author Organization [facility] Address [address] [place] [address] Care Team Providers Care Electric Track Switch Maintainer Name Role Phone Socrates Babb MD Primary Care Provider [phone] Socrates Babb MD Unavailable Medications Multiple Vitamins-Mineral [...] COVID-19 Vaccine (2023-2 5 season) 2024 Influenza (Season Ended) 2025 Zoster (Shingrix) (1 of 2) 2037 Hep [...] age to complete this topic Care Teams Electric Track Switch Maintainer Relationship Specialty Start Date End Date Socrates Babb MD [address] [place] [address] PCP - General 03/16/23 Socrates Babb MD [address] [place] [id number] PCP - Backup PCP Family Medicine 09/09/23
--- OUTSIDE RECORDS SUMMARY | 2024-12-14 14:32 | XMS_ITS | Data Portability ---
Author Organization [place] [facility], Allergy Address [address] [address] Care Team Providers Care Microbiological Analyst Name Role Phone BARTOLO CONNELL Primary Care Provider Assessment Encounter Date Assessment Date Assessment LastModified [...] and will follow-up to review the results. [email or web address] Not available 10/27/2024 11:39:27 Plan of Treatment Reminders Order Date Submit Date Provider Last Modified By Organization Details Last Modified Time Details Appointments Establish ed 15 2024 11:15A M JANINE GALLEGOS PA-C Not available Not available Not available Lab None recorded. Referral None recorded. Procedures allergy testing, skin prick (PROC) 2024 025 [facility] Services, Count includes the [facility] [place], [address], 12/01/2024 10:35:07 intraderm al allergy skin testing (PROC) 2024 025 [facility] Sleep Medicine [facility], [address] [place] [address], [id number], 12/01/2024 10:35:13 pulmonary function test procedure (PROC) 2024 025 [facility], [address] [place] [address], [id number], 12/01/2024 10:35:21 pulse oximetry (PROC) 2024 025 [facility], [address] [place] [address], [id number], 12/01/2024 10:35:29 polysomno graphy (PROC) - postop PSG at [facility] please 2023 024 [facility] Sleep Medicine [facility], [address] [place] [address], [id number], 02/03/2024 11:26:34 Surgeries None recorded. Imaging None recorded. Medication Orders None recorded. Patient TargetsNo targets recorded. Patient Instructions Encounter Date Encounter Id Patient Instructions Last Modified By Organization Details Last Modified Time 12/01/2024 [id number] Nursing Documentation for Allergy Testing: Ordering Provider {{Dr. Rosa Elena Corona* Dr. Tomasz Grimaldo}} Weight:lbs:? ? ?218 kg: ? ? ? PFT {{Yes* no}} With Bronchodilator {{Yes no*}} Dr. martínez needed to proceed with allergy testing? {{Yes No*}} {{Dr. Rosa Elena Grimaldo}} ok'd testing {{Yes No Pulmonary Clearance PCP Clearance RAST}}Hi story of Asthma:{{Yes* No}} Asthma Meds:symbicort and ventolin ? ? ?Last used:? ? ?symbicort this am and ventolin a week ago Asthma exacerbated by: ? ? ? Chance that : {{Yes No* Not Sure N/A}} Fear of needles: {{Yes No*}} Regular medications reviewed in Computer: {{Yes* No}} Medication allergies: {{Reviewed NKDA*}} Antihistamine use: {{Yes No*}} Medications used: ? ? ? Food Allergies:no ? ? ? Any foods make your mouth feeling itchy: {{Yes No*}} If yes: ? ? ? History of severe reaction where had to go to ER? {{Yes No*}} If yes details: ? ? ? Type of heat in home: {{Baseboard Forced Air* Radiator othe r}} Pets: {{Yes No}} If yes: ? ? ? Smoker: {{Yes Current Never Form er*}} If former smoker-how much ? ? ?5 / day for how long10 years ? ? ? When quit 1 ? ? ? years ago Smoking now-how much ? ? ? /day for how long ? ? ? Occupation/Social History: ? ? ?works from home for [employer] Symptoms having: {{Congestion* Post Nasal Drip Headache Runn y Nose Cough Other}} If other: ? ? ? Frequency {{Seasonally Year Round}} Spirometry Contraindications: Heart attack in the last 3 months: {{Yes No*}} Major surgery in last 3 months: {{Yes No*}} Detached retina(serious eye issues) in last 2 months: {{Yes No*}} Hospitilization in last month: {{Yes No*}} Proceed with PFT {{Yes* No}} approval needed: {{Yes No*}} Nursing Notes: Pt tolerated test well {{Yes* No}} Benadryl cream to test sites {{Yes* No}} Patient became syncopal-placed in supine position {{Yes No*}} Large reactions to MQT, reschedule IDT for a different date {{Yes No*}} Other: ? ? ? Written by: {{SREEKANTH Galeas, Juan* Zamzam Roldan}} michele Not available 12/01/2024 11:22:02 Reason for Referral None Reported. Results Created Date Observation Date Name Description Value Unit Range Abnormal Flag Note LastModifiedBy Organization Detail LastModifiedTime 03/30/20 24 09/17/2023 imagi ng/di agnos tic resul t No observ ation record ed. [email or web address] Not Available 06:13:51 03/30/20 24 09/17/2023 imagi ng/di agnos tic resul t No observ ation record ed. [email or web address] Not Available 06:13:52 03/30/20 24 07/14/2022 imagi ng/di agnos tic resul t No observ ation record ed. [email or web address] Not Available 06:14:16 10/28/19 25 audio gram No observ ation record ed. BARCODE Not Available 2024 13:38:58 12/02/19 25 alphonse metry testi ng* No observ ation record ed. [email or web address] Not Available 2024 12:11:58 Result Notes None recorded. Problems Name Problem SNOMED Code Status Onset Date Resolution Date Notes Provider Name and Address Organization Details Recorded Time Obstructi ve sleep apnea syndrome 57972684 Active 2021 Obstructi ve sleep apnea (adult) (pediatri c); Note: Date Diagnosed : 07/14/2022 10:46 AM (G47.33) Note: Date Diagnosed : 07/14/2022 10:46 AM (G47.33) LUCRECIA CORONA MD [address] [place] [address], [place], [address] , [place] [facility] 4 13:24:53 Deviated nasal septum 100121802 Active 2021 Deviated nasal septum; Note: Date Diagnosed : 07/14/2022 10:46 AM (J34.2) Note: Date Diagnosed : 07/14/2022 10:46 AM (J34.2) LUCRECIA CORONA MD [address] [place] [address], [place], [address] , [place] [facility] 4 13:24:53 Hypertrop hy of tonsils 59631088 Active 2021 Hypertrop hy of tonsils; Note: Date Diagnosed : 07/14/2022 10:46 AM (J35.1) Not Available [facility] 4 03:23:48 Hypertrop hy of tonsils AND adenoids 39836694 Active 2023 Hypertrop hy of tonsils with hypertrop hy of adenoids; Note: Date Diagnosed : 08/14/2023 10:49 AM (J35.3) Not Available [facility] 4 03:23:48 Disorder of right Eustachia n tube 58919578947 82725 Active 2021 Other specified disorders of Eustachia n tube, right ear; Note: Date Diagnosed : 07/14/2022 10:46 AM (H69.81) Note: Date Diagnosed : 07/14/2022 10:46 AM (H69.81) LUCRECIA CORONA MD [address], [facility] [place], [address] , [place] [facility] 4 13:25:04 Bilateral disorder of Eustachia n tubes 60966498988 60506 Active 2024 JENNIFER SEBASTIAN, AUD [address], [place], [address] , [facility] 5 11:01:03 Allergic rhinitis 62325759 Active 2024 JANINE GALLEGOS PA-C [address], [place], [address] , [place] [facility] 5 11:40:09 Problem Notes None recorded. Procedures Surgical History Date Name Laterality Status Provider Name and Address Organization Details Recorded Time Allergy Testing-Full completed LEONEL PRIETO [address], [place], [address], [place] [facility] 12/01/2024 11:33:57 5 Air & Speech Audio with Tymps - 304[address], [address] & [address] completed JENNIFER SEBASTIAN, AUD [address], [place], [address], [place] [facility] 10/27/2024 11:00:31 Imaging Results Imaging Date Name Status LastModified by [facility] Details LastModified Time 09/17/2023 imaging/diagnos tic result completed Information not available 03/30/2024 06:13:51 09/17/2023 imaging/diagnos tic result completed Information not available 03/30/2024 06:13:52 07/14/2022 imaging/diagnos tic result completed Information not available 03/30/2024 06:14:16 10/27/2024 audiogram completed BARCODE Information no t available 10/27/2024 13:38:58 12/01/2024 spirometry testing* completed [email or web address] Information not available 12/05/2024 12:11:58 Procedure Notes None recorded. Medical Equipment None Reported. Allergies No known drug allergies Medications Name Sig Start Date Stop Date Status Note LastModified by Organization Details LastModified Time clindamyc in HCl 300 mg capsule TAKE 1 CAPSULE 3 TIMES A DAY UNTIL FINISHED 12/01 completed Not Available Not Available Not Available acetamino phen 160 mg/5 mL oral liquid 10/27 completed Medicati on ID: [id number] B rand Name: acetamin ophen Se nd Method: E-Prescr ibed Sub s Allowed: subs OK [facility] : acetamin ophen Not Available Not Available Not Available Lidocaine Viscous 2 % mucosal solution Take 5 ml by mouth four times a day as needed for pain 10/27 completed Medicati on ID: [id number] D uration Value: 7 Brand Name: Lidocain e Viscous Send Method: E-Prescr ibed Sub s Allowed: subs OK Speci al Instruct ion: swish and spit Med icationG enericNa me: Lidocain e Viscous Not Available Not Available Not Available sumatript an 100 mg tablet 11/08 completed Medicati on ID: [id number] B rand Name: sumatrip rothman succinat e Send Method: E-Prescr ibed Sub s Allowed: subs OK Medic ationGen ericName : sumatrip rothman succinat e Not Available Not Available Not Available hydrocodo ne 5 mg-acetam inophen 325 mg tablet TAKE 1 TABLET BY MOUTH EVERY 6 HOURS NEEDED 12/01 completed Not Available Not Available Not Available rizatript an 10 mg tablet 10/27 completed Medicati on ID: [id number] B rand Name: derrick rothman Send Method: E-Prescr ibed Sub s Allowed: subs OK Medic ationGen ericName : dioniciozatrarnulfo rothman Not Available Not Available Not Available amoxicill in 500 mg tablet TAKE 1 TAB EVERY 8 HOURS UNTIL GONE BY MOUTH 12/01 completed Not Available Not Available Not Available omeprazol e 20 mg capsule,d elayed release TAKE 1 CAPSULE BY MOUTH EVERY DAY 10/27 completed Not Available Not Available Not Available acetamino phen 160 mg/5 mL oral elixir Take 15 ml by mouth every six hours as needed for pain 10/27 completed Medicati on ID: [id number] D uration Value: 4 Brand Name: acetamin ophen Se nd Method: E-Prescr ibed Sub s Allowed: subs OK Medic ationGen ericName : acetamin ophen Not Available Not Available Not Available ibuprofen 100 mg/5 mL oral suspensio n 10/27 completed Medicati on ID: [id number] B rand Name: ibuprofe n Send Method: E-Prescr ibed Sub s Allowed: subs OK Medic ationGen ericName : ibuprofe n Not Available Not Available Not Available ipratropi um bromide 42 mcg (0.06 %) nasal spray USE 2 SPRAYS INTO EACH NOSTRIL 4 TIMES A DAY 11/30 completed Not Available Not Available Not Available fluocinon ayesha 0.05 % topical cream APPLLY TOPICALL Y 2 TIMES A DAY FOR 10 DAYS 12/01 completed Not Available Not Available Not Available ondansetr on 4 mg disintegr ating tablet 10/27 completed Medicati on ID: [id number] B rand Name: micah mera Send Method: E-Prescr ibed Sub s Allowed: subs OK Medic ationGen ericName : ondarenetta mera Not Available Not Available Not Available fluticaso ne propionat e 50 mcg/actua tion nasal spray,nicole pension 10/27 completed Medicati on ID: [id number] B rand Name: fluticas one propiona te [...] inhaler,s ensor 11/08 completed Medicati on ID: [id number] B rand Name: ProAir HFA Send Method: E-Prescr ibed Sub s Allowed: subs OK Medic ationGen ericName : ProAir HFA Not Available Not Available Not Available Nurtec ODT 75 mg disintegr ating tablet DISSOLVE 1 TABLET ON THE TONGUE BY MOUTH ONCE NEEDED FOR MIGRAINE HEADACHE *MAX 1 TAB IN 24 HOURS active Not Available Not Available No t Available Lidocaine Pain Relief 4 % topical spray [place] 1 spray into mouth four times a day as needed for pain 10/27 completed Medicati on ID: [id number] D uration Value: 7 Brand Name: Lidocain e Pain Relief S end Method: E-Prescr ibed Sub s Allowed: subs OK Medic ationGen ericName : Lidocain e Pain Relief Not Available Not Available Not Available Vitals Date Recorded Body height Body mass index (BMI) Body weight Oxygen saturation Oxygen saturation in Arterial blood by Pulse oximetry Heart rate Systolic blood pressure Diastolic blood pressure Provider Name and Address Organization Details Last Updated DateTime 5 167.64 cm 35.2 kg/m2 05048.1 4 g 98 % 98 % 67 /min 114 mm[Hg] 73 mm[Hg] [address], [address] [place] [facility] 5 10:40:41 Date Recorded Body height Body mass index (BMI) Body weight Provider Name and Address Organization Details Last Updated DateTime 01/22/2024 167.64 cm 34.7 kg/m2 98402.36 g Martine Bunrs [place] [facility] 01/22/2024 14:35:44 Social History Question Answer Notes LastModified by Organizat ion Details LastModified Time Tobacco Smoking Status Former Smoker BASIL MCDONALD, [facility] [address] [facility],[place] [address], [place], [address], [facility] - [facility] 12/01/2024 10:43:08 When Did You Quit Smoking? 1-5yearssinc elastcigaret te Information not available 12/01/2024 How Much Tobacco Do You Smoke? 1 PPW Information not available 12/01/2024 How Many Years Have You Smoked Tobacco? 10 Information not available 12/01/2024 Sex: Unknown Functional Status None recorded. Mental Status None recorded. Family History Nothing Reported. Medical History Condition Response Nasal or Sinus Problems N Rhinitis N Food Allergy N Hearing Loss N Tonsil Infections N High Cholesterol N Liver Disease N Eczema Y Other Skin Condition N Nasal polyps N COPD N Gynecological HistoryNo gynecological history recorded. Obstetrics History GPAL:G 0 P 0 0 0 0 Past Encounters Encounter ID Performer Location Encounter Start Date Encounter Closed Date Diagnosis/Indication Diagnosis SNOMED-CT Code Diagnosis ICD10 Code Diagnosis Note [id number] LUCRECIA CORONA MD [facility] [address] [address] 01/22/2024 14:21:36 01/22/2024 15:26:15 Obstructive sleep apnea syndrome 70523834 G47.33 Disorder o f right Eustachian tube 9686422715 767419 H69.81 [id number] JANINE GALLEGOS PA-C [facility] [address] [address] 10/27/2024 10:23:01 10/27/2024 11:29:58 Bilateral disorder of Eustachian tubes 8586522924 903832 H69.83 Audiologic al evaluation results: Right ear: [...] not maintain a hermetic seal}} Allergic rhinitis 850189 04 J30.89 [id number] BASIL TAMARA, [facility] Allergy [address] [place] [address] 12/01/2024 10:25:52 12/01/2024 11:35:06 Allergic rhinitis 62754845 J30.89 Health Concerns Section Related Observation LastModified by Organization Detai ls LastModified Time None Recorded Concern Status LastModified by Organization Details LastModified Time None Recorded Advance Directives Directive None Recorded Payers Insurance Date Sequence Insurance Name Policy Number Policy Delgado Covered Member ID Delgado Member ID Guarantor Name 12/13/2024 1 [facility] [employer] (MEDICAID HMO) MAGALI Sanchez [id number] Meron Sanchez Notes Date Note Type Note Provider Name and Address Organization Details Recorded Time 01/22/2024 text/html 05/11/2022 PSG BM C AHI 32.82/724 T&Apath benign from left and right tonsil and adenoidfluid in right ear since October 2023feels it fluctuates from day to day postop PSG was denied by insurance LUCRECIA CORONA MD [address] [facility],[address], [address], [facility] - [facility] 01/22/2024 14:55:39 10/27/2024 text/html 39-year-old tameka garcia [...] confirm resolution of URBAN. ELIA GRIMALDO MD 100 [facility],[address], [place], [address], [facility] - [facility] 10/27/2024 12:24:01 OBGyn Episode No OBEpisode recorded.
--- OUTSIDE RECORDS SUMMARY | 2024-12-14 14:32 | XMS_ITS | Clinical Summary ---
Author Organization [facility] Address [address] [place] [address] Care Team Providers Care Congressional Representative Name Role Phone Unavailable Primary Care Provider Unavailabl e Social History Tobacco Use Types Packs/Day Years Used Date Smoking Tobacco: Never Assessed Comments Unknown Sex and Gender Information Value Date Recorded Sex Assigned at Not on file Legal Sex Female 6:38 PM EDT Gender Identity Not on file [...] series) 2006 Pap Smear (Ages 21-65) 2008 COVID-19 Vaccine ( - 2023-2 5 season) 2024 Influenza Vaccine 03/10/2025 HPV Vaccines Aged Out No longer eligi ble based on patient's age to complete this topic Pneumococcal Vaccine: Pediat terrance (0-5 Years) and At-Risk Patients (6 to 49 Years) Aged Out No longer eligible b ased on patient's age to complete this topic Insurance BLUE CROSS OUT OF STATE - PPO
--- OUTSIDE RECORDS SUMMARY | 2024-12-14 14:32 | XMS_ITS | Clinical Summary ---
[facility] Address [address] [place] [address] Care Team Providers Care Hand Packer/Packager Name Role Phone Unavailable Primary Care Provider [...]
--- OUTSIDE RECORDS SUMMARY | 2024-12-14 14:32 | XMS_ITS | Encounter Summary ---
Author Organization [facility] Address [address] [place] [address] Care Team Providers Care Tube Machine Operator Name Role Phone Unavailable Primary Care Provider Unavailabl e Encounter Details Date Type Department Care Team (Latest Contact Info) Description 08/12/2020 Lab Requisition [facility] [address] Through [address] [place] [address] [address] [place] [address] Jitendra Wilson PA-C [address] [place] [address] Encounter for laboratory testing for COVID-19 virus [...] Date/Time Associated Diagnosis Comments COVID-19 (SARS-COV-2) - SEMA4 LAB Routine 08/12/2020 1:06 PM EST Encounter for laboratory testing for COVID-19 virus [ICD-10-CM] documented in this encounter Results * COVID-19 (SARS-COV-2) (SEMA4) (08/12/2020 1:06 PM EST) COVID-19 RT-PCR NOT-DETEC GERALDINE Not-Detec geraldine 08/15/2020 12:02 AM EST [facility] - [facility] Comment:Interpretation: The viral RNA was not detected, making the COVID-19 diagnosis less likely. Clinical correlation is highly recommended.Final report signed by Delam Nunes, Ph.D., Laboratory DirectorTests performed at [email or web address] Nasopharyngeal swab / Unknown 08/12/2020 1:06 PM EST 08/12/2020 1:06 PM EST Narrative JOSHUA MAHMOOD - 08/15/2020 12:02 AM EST Performed by [email or web address] [address] [place] [address], CLIA# [id number] and [place] License# [id number] Jitendra Wilson PA-C MICROBIOLOGY - GENERAL OR DERABLES Final Result JOSHUA MAHMOOD documented in this encounter Visit Diagnoses Diagnosis Encounter for laboratory testing for COVID-19 virus documented in this encounter
== END 2024-12-14 14:17 | disposition home or self-care (01) ==
LOC: HO.HMCC 13:17
PROVIDERS: PCP Internal Medicine; Visit Provider Internal Medicine
DX: M25.562 Pain in left knee (principal); E66.9 Obesity, unspecified; Z68.36 Body mass index [BMI] 36.0-36.9, adult

== ENCOUNTER → 2024-12-14 13:16 | Outpatient (BNVA) | payer OTHER, SELFPAY | PROVIDERS: PCP Internal Medicine; Visit Provider Internal Medicine | DX: M25.562 Pain in left knee (principal); E66.9 Obesity, unspecified; Z68.36 Body mass index [BMI] 36.0-36.9, adult | CPT/HCPCS: 96127; 99212 ==

== ENCOUNTER 2025-02-20 12:13 | Outpatient (AMB) | payer OTHER, SELFPAY ==
[2025-02-20 12:24] VITALS: BP 100/62; PULSE 65; RESP 16; TEMP 36.9; O2SAT 98; BMI 36.8
--- NOTE | 2025-02-20 12:24 | MHC.PC.OV ---
Vital Signs 02/20/25 12:24 Height 5 ft 6 in Weight 228 lb BMI 36.8 BP 100/62 Blood Pressure Location Lt brachial Position Sitting Respiration 16 Pulse 65 Pulse Source Pulse Oximeter Temp 98.4 F Temp Source Oral Pulse Oximetry (%) 98 Oxygen Delivery Method Room Air Intake Visit Reasons: Annual PE-Reschedule Intake Note: Pt is here today for her PE Allergies No Known Allergies Allergy (Verified 02/20/25 12:44) Medication List - Last Reconciled 02/20/25 by Solange Ramsay MD fluocinonide 0.05% 1 appl topical BID 10 days inhalational spacing device (BreatheRite MDI Spacer) As directed rimegepant (Nurtec ODT) mg PO Symbicort 160-4.5 mcg/actuation (budesonide-formoterol) 2 puffs inhalation Q12H NS Ventolin HFA 90 mcg/actuation (albuterol sulfate) 2 inhalations inhalation Q6H PRN NS Tobacco use date assessed: 02/20/25 Dental Screening Dental Screen Date: 02/20/25 Did you have a dental visit in the last 12 months?: Yes Did you have a dental problem in the last 6 months where you did not have access to dental care?: No Was dental information given to patient?: Patient has dentist HPI Annual PE-Reschedule HPI Details 39 year-old lady with obesity, mixed dyslipidemia, mild intermittent asthma, obstructive sleep apnea, and history of migraine headache, here today for physical exam . she is up-to-date with her cervical cancer screening, with last PAP done 11/23/20. Has upcoming appt. Already scheduled with [facility], Has mild intermittent asthma, currently stable controlled on Symbicort and has albuterol inhaler that she uses as needed. Complains of dry cracking, itchy skin on palms of both hands. Has been having intermittent episodes of pain in her right lower back, has with prolonged standing or sitting. Not much improvement with taking [id number] Tylenol [facility] Medical History (Updated 02/20/25 @ 13:04 by Solange Ramsay MD) Skin lesion of cheek Left knee pain Pain of right sacroiliac joint History of abnormal cervical Papanicolaou smear Refused influenza vaccine Enlarged tonsils URBAN (obstructive sleep apnea) SI (sacroiliac) pain Mixed dyslipidemia Obesity (BMI 30-39.9) Migraine Mild intermittent asthma in adult without complication Surgical History History of adenoidectomy Hx of tonsillectomy Hx of LASIK History of wisdom tooth extraction Family History Father No problems noted. Mother HTN (hypertension) Cervical cancer Substance use disorder Maternal Grandmother Substance use disorder Maternal Grandfather Cancer Paternal Grandmother No problems noted. Paternal Grandfather Cancer of thyroid Substance use disorder Brother No problems noted. Sister No problems noted. Son No problems noted. Daughter No problems noted. Social History Housing: House Alcohol intake: never Patient Tobacco Use Status: Former Tobacco user Years Smoked: 15 yrs e-Cigarette/Vaping Use: Former Use Second Hand Smoke Exposure: No Substance Use Type: Marijuana service: No Current occupational status: employed Sexual orientation: Straight/Heterosexual Gender identity: Female Cognitive needs: No Hearing needs: No Vision needs: No Female Reproductive History Menstrual Age of Menarche: 15 Duration of menses: 6-7 days Date of last menstrual period: 01/28/25 control method: none and permanent sterilization Permanent Sterilization: Vasectomy Other: goes to [facility] [employer] (Sammie ) [facility] in [facility] in [place], had a pap smear this year 08/18/24 , normal per patient Questionnaire PHQ-9 Over the last 2 weeks, how often have you been bothered by any of the following problems? Depression Screening Interpretation: Negative Depression Screening Done: Yes Source: Developed by Drs. Nakul Don, Omayra Haywood, Hunter Tomlin and colleagues, with an educational gallo from [employer]. Thrive Questionnaire Date Thrive assessed: 12/11/24 I am a: Patient What is your living situation today?: I have a steady place to live Within the past 12 months, did the food you bought not last and you didn't have the money to get more?: I choose not to answer this question Within the past 12 months, did you worry whether your food would run out before you got money to buy more?: I choose not to answer this question Do you have trouble paying for medicines?: No Do you have trouble getting transportation to medical appointments?: No Do you have trouble paying your heating and electricity bill?: I choose not to answer this question Do you have trouble taking care of your child, family member or friend?: No Do you have trouble with day-to-day activities such as bathing, preparing meals, shopping, managing finances, etc.?: No Are you currently unemployed and looking for a job?: No Are you interested in more education?: Yes Please select the resources that you would like help with: Education Currently or been in a relationship where the following occur: No concerns reported THRIVE Score: 0 AUDIT C Alcohol Use Questionnaire (AUDIT-C) 1. How often do you have a drink containing alcohol?: Never Total Score: 0 KRISTY-7 AMB Questionnaire KRISTY-7 Date KRISTY - 7 assessed: 12/14/24 Source: Developed by Drs. Nakul Don, Omayra Haywood, Hunter Tomlin and colleagues, with an educational gallo from [employer]. ACT Questionnaire In the past 4 weeks, how much of the time did your asthma keep you from getting as much done at work, school or at home?: None of the time During the past 4 weeks, how often have you had shortness of breath?: Not at all During the past 4 weeks, how often did your asthma symptoms wake you up at night or earlier than usual in the morning?: Not at all During the past 4 weeks, how often have you had to use your rescue inhaler or nebulizer medication?: Not at all How would you rate your asthma control during the past 4 weeks?: Completely controlled Score: 25 Review of Systems Const Reports no additional complaints and Denies fatigue Eyes Details: Goes to [facility] , had Lasik sx in [place] Reports no additional complaints ENT Details: Dental prophylaxis q.6 months Denies change in voice, Denies dysphagia, Denies nasal congestion and Denies nasal discharge Card Denies chest pain, Denies lightheadedness, Denies palpitations and Denies orthopnea Resp Denies chest congestion, Denies cough and Denies wheezing GI Denies abdominal pain, Denies bloating, Denies change in bowel habits, Denies dysphagia and Denies heartburn Reports no additional complaints Musc Reports no additional complaints Skin/Breast Denies breast pain, Denies breast mass and Denies rash Neuro Reports no additional complaints Psych Reports no additional complaints Endo Denies fatigue, Denies polydipsia, Denies polyuria and Denies palpitations Jeffrey/Lymph Reports no additional complaints Aller/Immun Denies seasonal rhinorrhea and Denies wheezing Physical exam (Primary Care) Vital Signs: Last Vital Signs Temp 98.4 F 02/20/25 12:24 Pulse 65 02/20/25 12:24 Resp 16 02/20/25 12:24 BP 100/62 02/20/25 12:24 Pulse Ox 98 02/20/25 12:24 Oxygen Delivery Method Room Air 02/20/25 12:24 BMI result Body Mass Index 36.8 Tobacco/Smoking Status: Tobacco use Status Tobacco use date assessed 02/20/25 02/20/25 12:25 Patient Tobacco Use Status Former Tobacco user 02/20/25 12:25 e-Cigarette/Vaping Use Former Use 02/20/25 12:27 Depression Screening Interpretation: Negative Thrive Assessment: Date of Thrive Assessment Date Thrive assessed 12/11/24 02/20/25 12:25 Currently or been in a relationship where the following occur: No concerns reported Const General: cooperative and no acute distress Orientation/consciousness: patient oriented x3 HENMT Head: Yes normal to inspection and Yes normocephalic Eyes General: appearance normal, both eyes and all related structures Pupils: Equal, round and reactive pupils present Neck Neck: Yes normal visual inspection, Yes full ROM and Yes no lymphadenopathy Chest Breast/axilla inspection: Other (pierced nipples) Breast/axilla palpation: normal palpation of the breasts and other Resp Auscultation: clear to auscultation bilaterally Cardio Rate: regular rate Rhythm: regular rhythm Heart sounds: S1 normal heart sound present and S2 normal heart sound present GI Inspection: Yes normal to inspection Palpation (GI): Soft to palpation Auscultation: normal bowel sounds General: Yes deferred (Goes to [facility]) Skin Other: Tattoos on abdomen and back, positive piercing on nipples and navel Neuro General: patient oriented x3, tone normal, moves all extremities, no focal motor deficits, CN's II-XI intact bilaterally and deep tendon reflexes 2+ bilaterally Cranial nerves: Yes CN's II-XII intact bilaterally and Yes Equal, round and reactive pupils present Extrem General: Yes full ROM, Yes no joint enlargement, Yes no clubbing, cyanosis or edema and Yes no calf tenderness Psych Appearance: grossly normal and well kempt Mental Status: mental status grossly normal Speech and movement: Normal speech and movement present Affect: normal affect Thought process: Normal thought process present Thought content: Normal thought content present Coding Level of Care Code Est Pt Prev Care 18-39y([id number]) Diagnoses Annual visit for general adult medical examination with abnormal findings Z00.01 Obesity (BMI 30-39.9) E66.9 Mixed dyslipidemia E78.2 Migraine without aura and without status migrainosus, not intractable G43.009 Intractability: not intractable Migraine type: without aura Status migrainosus presence: without status migrainosus Mild intermittent asthma in adult without complication J45.20 URBAN (obstructive sleep apnea) G47.33 Assessment & Plan Assessment & Plan (1) Annual visit for general adult medical examination with abnormal findings: Code(s): Z00.01 - Encounter for general adult medical examination with abnormal findings Plan: Reminded patient get her fasting labs done, already ordered. Up-to-date with her cervical cancer screening, goes to [facility]. Reminded to get her yearly flu vaccine, and is up-to-date with her Tdap and pneumococcal vaccination. (2) Obesity (BMI 30-39.9): Code(s): E66.9 - Obesity, unspecified Category: Medical Plan: Discussed need to increase activity and weight reduction. Recommended focusing on improving health instead of dieting. Mediterranean diet is a healthy diet that helps, limit food high in fat, sugar, and calories. Eat slowly, pay attention to portion sizes, plan your meals ahead of time, start regular physical activity, at least 150 minutes of moderate intensity exercise (3) Mixed dyslipidemia: Code(s): E78.2 - Mixed hyperlipidemia Category: Medical Plan: Fasting lipid panel ordered. Reinforced importance of following a healthy diet, and engaging in regular exercise (4) Migraine: Code(s): G43.909 - Migraine, unspecified, not intractable, without status migrainosus Category: Medical Qualifiers: Intractability: not intractable Migraine type: without aura Status migrainosus presence: without status migrainosus Qualified Code(s): G43.009 - Migraine without aura, not intractable, without status migrainosus Plan: Controlled on Nurtec ODT (5) Mild intermittent asthma in adult without complication: Code(s): J45.20 - Mild intermittent asthma, uncomplicated Category: Medical Plan: Up-to-date with her pneumonia vaccine, continued on Symbicort and Ventolin inhaler to be used as needed (6) URBAN (obstructive sleep apnea): Comment: Currently being followed at [facility], with last sleep study done 05/11/2022, Dr Silver , had tonsillectomy Code(s): G47.33 - Obstructive sleep apnea (adult) (pediatric) Category: Medical Plan: On CPAP followed at [facility] sleep clinic
--- OUTSIDE RECORDS SUMMARY | 2025-02-20 13:14 | XMS_ITS | Encounter Summary ---
Author Organization [facility] Address [address] [place] [id number] Care Team Providers Care Adult [employer] In[employer] Name Role Phone Unavailable Primary Care Provider Unavailabl e Encounter Details Date Type Department Care Team (Latest Contact Info) Description 08/12/2020 Lab Requisition [facility] COVID [address] Through [address] [place] [address] [address] [place] [address] Jitendra Wilson PA-C [address] [place] [id number] Encounter for laboratory testing for COVID-19 [...] Delma Nunes, Ph.D., Laboratory DirectorTests performed at [facility] Nasopharyngeal swab / Unknown 08/12/2020 1:06 PM EST 08/12/2020 1:06 PM EST Narrative JOSHUA MAHMOOD - 08/15/2020 12:02 AM EST Performed by [facility] [address] [place] [address], CLIA# [id number] and [place] License# [id number] Jitendra Wilson PA-C MICROBIOLOGY - GENERAL OR DERABLES Final Result JOSHUA MHAMOOD documented in this encounter Visit Diagnoses Diagnosis Encounter for laboratory testing for COVID-19 virus documented in this encounter
--- OUTSIDE RECORDS SUMMARY | 2025-02-20 13:14 | XMS_ITS | Data Portability ---
Author Organization [place] - [facility], Allergy Address [address] [address] Care Team Providers Care Dietitian Helper Name Role Phone BARTOLO CONNELL Primary Care Provider Assessment Encounter Date Assessment Date Assessment LastModified by Organization Details LastModified Time 01/17/2025 01/17/2025 Visit With: Zamzam Roldan Use of Antihistamine s: Yes If yes: Vial Test Change in medications: No If yes Increase in asthma symptoms If yes, inhaler use: Reaction to last injections: No If yes: Allergy Symptoms: Other: Missed: Dose Aware of Vial Test Aware: Notes: [email or web address] Not available 01/17/2025 15:11:03 01/24/2025 01/24/2025 Visit With: LEONEL Gagnon Use of Antihistamine s: Yes If yes: Vial Test Change in medications: No If yes Increase in asthma symptoms If yes, inhaler use: Reaction to last injections: No If yes: Allergy Symptoms: Other: Missed: Dose Aware of Vial Test Aware: Notes: [email or web address] Not available 01/24/2025 14:13:10 02/02/2025 02/02/2025 Visit With: LEONEL Gagnon Use of Antihistamine s: No If yes: Vial Test Change in medications: No If yes Increase in asthma symptoms If yes, inhaler use: Reaction to last injections: No If yes: Allergy Symptoms: Other: Missed: Dose Aware of Vial Test Aware: Notes: [email or web address] Not available 02/02/2025 15:51:19 02/09/2025 02/09/2025 Visit With: Antonio Conroy RN Use of Antihistamine s: No If yes: Vial Test Change in medications: No If yes Increase in asthma symptoms No If yes, inhaler use: Reaction to last injections: No If yes: Allergy Symptoms: Other: Missed: Dose Aware of Vial Test Aware: Notes: [email or web address] Not available 02/09/2025 14:58:07 02/16/2025 02/16/2025 Visit With: Zamzam Roldan Use of Antihistamine s: No If yes: Vial Test Change in medications: No If yes Increase in asthma symptoms If yes, inhaler use: Reaction to last injections: No If yes: Allergy Symptoms: Other: Missed: Dose Aware of Vial Test Aware: Notes: [email or web address] Not available 02/16/2025 13:55:35 Plan of Treatment Reminders Order Date Submit Date Provider Last Modified By Organization Details Last Modified Time Details Appointments [facility] hed- Allergy f-up 6mon 2024 01:00P M JANINE GALLEGOS PA-C Not available Not available Not available Lab None recorded . Referral None recorded . Procedures None recorded . Surgeries None recorded . Imaging None recorded . Medication Orders None recorded . Patient TargetsNo targets recorded. Patient InstructionsNo instructions recorded. Reason for Referral None Reported. Problems Name Problem SNOMED Code Status Onset Date Resolution Date Notes Provider Name and Address Organization Details Recorded Time Obstructi ve sleep apnea syndrome 85862590 Active 2021 Obstructi ve sleep apnea (adult) (pediatri c); Note: Date Diagnosed : 07/14/2022 10:46 AM (G47.33) Note: Date Diagnosed : 07/14/2022 10:46 AM (G47.33) LUCRECIA CORONA MD [address] [place] [address],[place] [address], [place], [address] , [facility] - [facility] 13:24:53 Deviated nasal septum 237864220 Active 2021 Deviated nasal septum; Note: Date Diagnosed : 07/14/2022 10:46 AM (J34.2) Note: Date Diagnosed : 07/14/2022 10:46 AM (J34.2) LUCRECIA CORONA MD [address] [place] [address],[place] [address], [place], [address] , [place] [facility] [place] 4 13:24:53 Hypertrop hy of tonsils 82877359 Active 2021 Hypertrop hy of tonsils; Note: Date Diagnosed : 07/14/2022 10:46 AM (J35.1) Not Available [facility] 4 03:23:48 Hypertrop hy of tonsils AND adenoids 61878968 Active 2023 Hypertrop hy of tonsils with hypertrop hy of adenoids; Note: Date Diagnosed : 08/14/2023 10:49 AM (J35.3) Not Available Critical [facility] 4 03:23:48 Disorder of right Eustachia n tube 27272785610 78445 Active 2021 Other specified disorders of Eustachia n tube, right ear; Note: Date Diagnosed : 07/14/2022 10:46 AM (H69.81) Note: Date Diagnosed : 07/14/2022 10:46 AM (H69.81) LUCRECIA CORONA MD 100 [facility],[place] [address], [place], [address] , [place] [facility] [place] 4 13:25:04 Bilateral disorder of Eustachia n tubes 12976552019 42227 Active 2024 ANNELIESE GATES [address] [place] [address],[place] [address], [place], [address] , [place] [facility] [place] 5 11:01:03 Allergic rhinitis 23920070 Active 2024 JANINE GALLEGOS PA-C [address] [place] [address], [place], [address] , [place] [facility] 5 12:22:42 Perennial allergic rhinitis 395772804 Active 2024 ANTONIO CONROY RN [address] [place] [address],[place] [address], [place], [address] , [place] [facility] 5 14:55:39 Problem Notes None recorded. Procedures Surgical History Date Name Laterality Status Provider Name and Address Organization Details Recorded Time 02/17/20 25 Allergy Immunotherapy Injections completed LEONEL FLORES [address],[place] [facility], [place], [address], [facility] [place] 02/16/2025 13:55:25 02/10/20 25 Allergy Immunotherapy Injections completed ANTONIO CONROY RN [facility] [place],[address], [address], [facility] [place] 02/09/2025 14:57:59 02/03/20 25 Allergy Immunotherapy Injections completed BASIL ALEX, RMA [address],[place] [address] [place] [address], [address], [facility] [place] 02/02/2025 15:51:12 01/25/20 25 Allergy Immunotherapy Injections completed BASIL ALEX RMA [facility] [place] [address], [place], [address], [facility] [place] 01/24/2025 14:12:59 01/18/20 25 Allergy Immunotherapy Injections completed LEONEL FLORES 100 [facility],[address], [address], [facility] [place] 01/17/2025 15:10:51 01/10/20 25 Allergy Immunotherapy Injections completed ANTONIO CONROY RN 100 [facility],[address], [address], [facility] [place] 01/09/2025 15:11:45 12/02/19 25 Allergy Testing-Full completed BASIL ALEX [facility] 100 [facility],[address], [address], [facility] [place] 12/01/2024 11:33:57 10/28/19 25 Air & Speech Audio with Tymps - 52205, 74455 & 53485 completed ANNELIESE GATES [facility] [place],[address], [address], [facility] - [facility] [place] 10/27/2024 11:00:31 Imaging Results None recorded. Procedure Notes None recorded. Medical Equipment None Reported. Allergies No known drug allergies Medications Name Sig Start Date Stop Date Status Note LastModified by Organization Details LastModified Time clindamyc in HCl 300 mg capsule TAKE 1 CAPSULE 3 TIMES A DAY UNTIL FINISHED 12/01 completed Not Available Not Available Not Available acetamino phen 160 mg/5 mL oral liquid 10/27 completed Medicati on ID: [id number] B rand Name: acetamin ophnila Se nd Method: E-Prescr ibed Sub s Allowed: subs OK Medic ationGen ericName : acetamin ophen Not Available Not Available Not Available Lidocaine Viscous 2 % mucosal solution Take 5 ml by mouth four times a day as needed for pain 10/27 completed Medicati on ID: [id number] D uration Value: 7 Brand Name: Lidocain e Viscous Send Method: E-Prescr ibed Sub s Allowed: subs OK Speci al Instruct ion: swish and spit Med icationG enericNa me: Lidocain e Viscous Not Available Not Available Not Available sumatript an 100 mg tablet 11/08 completed Medicati on ID: [id number] B rand Name: sumatrip rothman succinat e Send Method: E-Prescr ibed Sub s Allowed: subs OK [facility] sumatrip rothman succinat e Not Available Not Available Not Available hydrocodo ne 5 mg-acetam inophen 325 mg tablet TAKE 1 TABLET BY MOUTH EVERY 6 HOURS NEEDED 12/01 completed Not Available Not Available Not Available rizatript an 10 mg tablet 10/27 completed Medicati on ID: [id number] B rand Name: rizatrip rothman Send Method: E-Prescr ibed Sub s Allowed: subs OK [facility] : rizatrip rothman Not Available Not [...] for pain 10/27 completed Medicati on ID: [id number] D uration Value: 4 Brand Name: acetamin ophen Se nd Method: E-Prescr ibed Sub s Allowed: subs OK Medic ationGen ericName : acetamin ophen Not Available Not Available Not Available azelastin e 137 mcg (0.1 %) nasal spray SPRAY 2 SPRAYS BY INTRANAS AL ROUTE TWICE A DAY FOR 30 DAYS active Not Available Not Available No t Available epinephri ne 0.3 mg/0.3 mL injection , auto-inje ctor INJECT 1 PEN INTO MUSCLE ONCE NEEDED FOR ANAPHYLA XIS active Not Available Not Available No t Available ibuprofen 100 mg/5 mL oral suspensio n 10/27 completed Medicati on ID: [id number] B rand Name: ibuprofe n Send Method: [...] ating tablet 10/27 completed Medicati on ID: [id number] B rand Name: onyisel samaria Send Method: E-Prescr ibed Sub s Allowed: subs OK Medic ationGen ericName : ondanset samaria Not Available Not Available Not Available fluticaso ne propionat e 50 mcg/actua tion nasal spray,nicole pension 10/27 completed Medicati on ID: [id number] B rand Name: fluticas one propiona te [...] inhaler,s ensor 11/08 completed Medicati on ID: [id number] B rand Name: ProAir HFA Send Method: [...] Lidocaine Pain Relief 4 % topical spray Parthenon 1 spray into mouth four times a day as needed for pain 10/27 completed Medicati on ID: [id number] D uration Value: 7 Brand Name: Lidocain e Pain Relief S end Method: E-Prescr ibed Sub s Allowed: subs OK Medic ationGen ericName : Lidocain e Pain Relief Not Available Not Available Not Available Vitals None Recorded Social History Question Answer Notes LastModified by Organizat ion Details LastModified Time Tobacco Smoking Status Former Smoker [address], [address], [facility] 12/01/2024 10:43:08 When Did You Quit Smoking? 1-5yearssinc elastcigaret te Information not available 12/01/2024 How Much Tobacco Do You Smoke? 1 PPW Information not available 12/01/2024 How Many Years Have You Smoked Tobacco? 10 Information not available 12/01/2024 Sex: Unknown Functional Status None recorded. Mental Status None recorded. Family History Nothing Reported. Medical History Condition Response Allergies/Hayfever Y Heart Problems N Anxiety Y Tonsil Infections N Emphysema N Migraines Y Thyroid Problems N Glaucoma N Depression N COPD N Developmental Delay N Nasal or Sinus Problems Y Anemia N Immune System Disorder N Anesthesia Complications N Heart Attack (VT) N Other Skin Condition N Diabetes N Rhinitis N Bleeding Disorder N Food Allergy N Arthritis N Hearing Loss N Hyperlipidemia N Cancer N Eczema Y Stroke N Dementia N Nasal polyps N Asthma Y Sleep Disorder N GERD/Reflux N High Cholesterol Y Liver Disease N Headaches Y Fibromyalgia N Hypertension N Speech Delay N Kidney Disease N Gynecological HistoryNo gynecological history recorded. Obstetrics History GPAL:G 0 P 0 0 0 0 Past Encounters Encounter ID Performer Location Encounter Start Date Encounter Closed Date Diagnosis/Indication Diagnosis SNOMED-CT Code Diagnosis ICD10 Code Diagnosis Note [id number] LUCRECIA CORONA MD [facility] [address] [address] 01/22/2024 14:21:36 01/22/2024 15:26:15 Obstructive sleep apnea syndrome 41834182 G47.33 Disorder o f right Eustachian tube 7603928387 139112 H69.81 [id number] JANINE GALLEGOS PA-C [facility] [address] [address] 10/27/2024 10:23:01 10/27/2024 11:29:58 Bilateral disorder of Eustachian tubes 5736777548 129935 H69.83 Audiologic al evaluation results: Right ear: Borderline normal rising to normal hearing with excellent word recognitio n. Left ear: Borderline normal rising to normal hearing with excellent word recognitio n. Tympanomet ry: Right Ear:Type C Left Ear:Type C Allergic rhinitis 415748 04 J30.89 [id number] BASIL MCDONALD, [facility] [address] [place] [address] 12/01/2024 10:25:52 12/01/2024 11:35:06 Allergic rhinitis 32743399 J30.89 [id number] JANINE GALLEGOS PA-C [facility] [address] [address] 12/16/2024 11:12:36 12/16/2024 11:57:24 Allergic rhinitis 55423495 J30.89 [id number] ANTONIO CONROY RN Allergy [address] [place] [address] 01/09/2025 14:51:28 01/09/2025 15:12:46 Perennial allergic rhinitis 406552804 J30.89 Allergic rhinitis 100451 04 J30.89 [id number] ZAMZAM ROLDAN, [facility] [address] [place] [address] 01/17/2025 14:39:48 01/17/2025 15:12:17 Perennial allergic rhinitis 208112414 J30.89 [id number] LUCRECIA CORONA MD Allergy 100 [facility],[place] [address] [place] [address] 01/24/2025 12:56:16 01/24/2025 14:13:39 Perennial allergic rhinitis 474713198 J30.89 [id number] BASIL ALEX, [facility] 100 [facility] 100 [facility] [place] [address] 02/02/2025 15:43:15 02/02/2025 15:51:46 Perennial allergic rhinitis 313337002 J30.89 [id number] ANTONIO CONROY RN Allergy 100 [facility], [facility] 100 [facility] [place] [address] 02/09/2025 14:50:52 02/09/2025 14:58:25 Perennial allergic rhinitis 795326110 J30.89 [id number] ZAMZAM ROLDAN, [facility] All[facility] [address] [place] [address],[facility] 100 [facility] [place] [address] 02/16/2025 13:23:13 02/16/2025 13:55:55 Perennial allergic rhinitis 575874849 J30.89 Health Concerns Section Related Observation LastModified by Organization Detai ls LastModified Time None Recorded Concern Status LastModified by Organization Details LastModified Time None Recorded Advance Directives Directive None Recorded Payers Insurance Date Sequence Insurance Name Policy Number Policy Delgado Covered Member ID Delgado Member ID Guarantor Name 02/16/2025 1 [facility] HEALTH NET PLAN (MEDICAID HMO) [place] Meron Sanchez [id number] Meron Sanchez OBGyn Episode No OBEpisode recorded.
--- OUTSIDE RECORDS SUMMARY | 2025-02-20 13:14 | XMS_ITS | Clinical Summary ---
Author Organization [facility] Address [address] [place] [address] Care Team Providers Care Adzing And Boring Machine Helper Name Role Phone Socrates Babb MD Primary Care Provider [phone] Socrates Babb MD Unavailable Medications Multiple Vitamins-Mineral s (One-A-Day Womens Healthy Skin) Tab 0 01/01/2012 Active Sertraline HCl (ZOLOFT) 50 MG tablet TAKE 1 TABLET DAILY DIRECTED. 30 1 02/09/2012 Active Active Problems Problem Noted Date Diagnosed Date Adjustment disorder with anxiety 09/16/2012 Opioid dependence 02/09/2012 Anxiety disorder 01/01/2012 Immunizations Immunization Administration Dates Next Due Hep B (adult) [...] 8:36 AM EST L Radial,Normal Temperature 37 C (98.6 F) 09/16/2012 8:36 AM EST Oral Respiratory Rate 16 09/16/2012 [...] Vaccine (2023-2 5 season) 2024 Influenza (#1) 2025 Zoster (Shingrix) (1 of 2) 2037 [...] age to complete this topic Care Teams Adzing And Boring Machine Helper Relationship Specialty Start Date End Date Socrates Babb MD [address] [place] [address] PCP - General 03/16/23 Socrates Babb MD [address] [place] [address] PCP - Backup PCP Family Medicine 09/09/23
--- OUTSIDE RECORDS SUMMARY | 2025-02-20 13:14 | XMS_ITS | Clinical Summary ---
Author Organization [facility] Address [address] [place] [address] Care Team Providers Care Assembly Press Operator Name Role Phone Unavailable Primary [...] Influencers of Health Screening 03/08/2024 COVID-19 Vaccine ( - 2023-2 5 season) 2024 Influenza Vaccine (#1) 2025 HIB Vaccines Aged Out No longer [...] 5 Years) and At-Risk Patients (6 to 49 [...]
== END 2025-02-20 13:31 | disposition home or self-care (01) ==
PROVIDERS: PCP Internal Medicine; Visit Provider Internal Medicine
DX: Z00.01 Encounter for general adult medical examination with abnormal findings (principal); E66.9 Obesity, unspecified; Z68.36 Body mass index [BMI] 36.0-36.9, adult; E78.2 Mixed hyperlipidemia; G43.009 Migraine without aura, not intractable, without status migrainosus; J45.20 Mild intermittent asthma, uncomplicated; G47.33 Obstructive sleep apnea (adult) (pediatric)

== ENCOUNTER → 2025-02-20 12:13 | Outpatient (BNVA) | payer OTHER, SELFPAY | PROVIDERS: PCP Internal Medicine; Visit Provider Internal Medicine | DX: Z00.01 Encounter for general adult medical examination with abnormal findings (principal); E66.9 Obesity, unspecified; Z68.36 Body mass index [BMI] 36.0-36.9, adult; E78.2 Mixed hyperlipidemia; G43.009 Migraine without aura, not intractable, without status migrainosus; J45.20 Mild intermittent asthma, uncomplicated; G47.33 Obstructive sleep apnea (adult) (pediatric); Z99.89 Dependence on other enabling machines and devices | CPT/HCPCS: 96160; 99395 ==

== ENCOUNTER 2025-03-08 13:50 | Outpatient (AMB) | payer OTHER, SELFPAY ==
--- NOTE | 2025-03-08 13:53 | A.OFFVIS_ITS ---
Vital Signs 03/08/25 14:02 Height 5 ft 6 in Weight 228 lb BMI 36.8 Intake Visit Reasons: Left knee pain and giving way Intake Note: Meron is a 39 year old female who presents with complaints of progressively worsening left knee pain and giving way. The patient describes her pain as sharp in nature. Most of the pain is along the medial aspect of her knee. The patient states that she injured her knee approximately 8 months ago. Since that time her symptoms have gotten progressively worse. She has failed the last 6 weeks of conservative treatment which has included Tylenol, anti-inflammatory medicines, a home exercise program and physical therapy exercises. She has been going to physical therapy at [facility] in [place]. Allergies No Known Allergies Allergy (Verified 03/08/25 13:59) Medication List - Last Reviewed 03/08/25 by Helen Hernandez fluocinonide 0.05% 1 appl topical BID 10 days inhalational spacing device (BreatheRite MDI Spacer) As directed rimegepant (Nurtec ODT) mg PO Symbicort 160-4.5 mcg/actuation (budesonide-formoterol) 2 puffs inhalation Q12H NS Ventolin HFA 90 mcg/actuation (albuterol sulfate) 2 inhalations inhalation Q6H PRN NS PFSH Medical History (Updated 03/08/25 @ 14:23 by Kris Solis MD) Skin lesion of cheek Left knee pain Pain of right sacroiliac joint History of abnormal cervical Papanicolaou smear Refused influenza vaccine Enlarged tonsils URBAN (obstructive sleep apnea) SI (sacroiliac) pain Mixed dyslipidemia Obesity (BMI 30-39.9) Migraine Mild intermittent asthma in adult without complication Surgical History History of adenoidectomy Hx of tonsillectomy Hx of LASIK History of wisdom tooth extraction Family History Father No problems noted. Mother HTN (hypertension) Cervical cancer Substance use disorder Maternal Grandmother Substance use disorder Maternal Grandfather Cancer Paternal Grandmother No problems noted. Paternal Grandfather Cancer of thyroid Substance use disorder Brother No problems noted. Sister No problems noted. Son No problems noted. Daughter No problems noted. Social History Housing: House Alcohol intake: never Patient Tobacco Use Status: Former Tobacco user Years Smoked: 15 yrs e-Cigarette/Vaping Use: Former Use Second Hand Smoke Exposure: No Substance Use Type: Marijuana service: No Current occupational status: employed Sexual orientation: Straight/Heterosexual Gender identity: Female Cognitive needs: No Hearing needs: No Vision needs: No Female Reproductive History Menstrual Age of Menarche: 15 Physical Exam Const Other: Well-nourished well-developed very friendly female awake alert and oriented x3 in no acute distress Extrem Other: Bilateral lower extremity examination shows good capillary refill, no skin lesions noted, normal sensation light touch Left knee examination shows a minimal effusion, minimal crepitus with range of motion, tenderness along her medial joint line, positive Kadie's test, no instability Results Reviewed Results Reviewed: Standing full weight-bearing x-rays the patient's left knee shows minimal joint space narrowing, no acute bony abnormalities Assessment & Plan Assessment & Plan (1) Tear of medial meniscus of left knee: Code(s): S83.242A - Other tear of medial meniscus, current injury, left knee, initial encounter Category: Medical Plan Ms. Sanchez presents with progressively worsening left knee pain and mechanical symptoms most likely due to a medial meniscus tear. Thus, I will send the patient for an MRI of her left knee for further evaluation. I will see her back once the MRI is completed to discuss the findings and treatment options. Feel free to call me at any time should questions regarding her orthopedic management arise. Thank you very much for asking me to see this very friendly patient. I spent 21 minutes in reviewing the patient's records and imaging studies, seeing the patient and documenting in the medical record. Orders: Orders MR knee LT wo con 03/09/25 S83.242A - Other tear of medial meniscus, current injury, left knee, initial encounter Coding Level of Care Code New Pt Level 3 (05233) Complex EM visit Add On G2211 Diagnoses Tear of medial meniscus of left knee S83.242A
[2025-03-08 14:02] VITALS: BMI 36.8
--- OUTSIDE RECORDS SUMMARY | 2025-03-08 14:30 | XMS_ITS | Clinical Summary ---
Author Organization [facility] Address [address] [place] [address] Care Team Providers Care Commercial Loan Reviewer Name Role Phone Socrates Babb MD Primary Care Provider [phone] Socrates Babb MD Unavailable Medications Multiple Vitamins-Mineral [...] B Completed 11/11/1999, 05/13/1999, 04/11/1999 HPV Vaccine (No Doses Required) Completed Hep A Aged Out No longer eligi ble based on patient's age to complete this topic Hib Aged Out No longer eligi ble based on patient's age to complete this topic Meningococcal ACWY Aged Out No longer eligible based on patient's age to complete this topic Pneumococcal Aged Out No longer eligi ble based on patient's age to complete this topic Care Teams Commercial Loan Reviewer Relationship Specialty Start Date End Date Socrates Babb MD [address] [place] [address] PCP - General 03/16/23 Socrates Babb MD [address] [place] [address] PCP - Backup PCP Family Medicine 09/09/23
--- OUTSIDE RECORDS SUMMARY | 2025-03-08 14:30 | XMS_ITS | Clinical Summary ---
Author Organization [facility] it Address [address] [place] [address] Care Team Providers Care Compliance And Control Analyst Name Role Phone Unavailable Primary Care Provider [...] Cervical Cancer Screening: P ap Smear 2008 HIV Screening 03/08/2024 Hepatitis C Screening 03/08/2024 Social Influencers of Health Screening 03/08/2024 COVID-19 Vaccine ( - 2023-2 5 season) 2024 Depression Screening 08/10/2024 Influenza Vaccine (#1) 2025 HIB Vaccines Aged [...]
--- OUTSIDE RECORDS SUMMARY | 2025-03-08 14:30 | XMS_ITS | Encounter Summary ---
Author Organization [facility] Address [address] [place] [address] Care Team Providers Care Digital Media Intern Name Role Phone Unavailable Primary Care Provider Unavailabl e Encounter Details Date Type Department Care Team (Latest Contact Info) Description 08/12/2020 Lab Requisition [facility] COVID [address] Through [address] [place] [address] [address] [place] [address] Jitendra Wilson PA-C [address] [place] [address] Encounter for laboratory testing for COVID-19 [...] Delma Nunes, Ph.D., Laboratory DirectorTests performed at [facility] Nasopharyngeal swab / Unknown 08/12/2020 1:06 PM EST 08/12/2020 1:06 PM EST Narrative JOSHUA MAHMOOD - 08/15/2020 12:02 AM EST Performed by [facility] [address] [place] [address], CLIA# [id number] and [place] License# [id number] Jitendra Wilson PA-C MICROBIOLOGY - GENERAL OR DERABLES Final Result JOSHUA MAHMOOD documented in this encounter Visit Diagnoses Diagnosis Encounter for laboratory testing for COVID-19 virus documented in this encounter
== END 2025-03-08 14:18 | disposition home or self-care (01) ==
LOC: HO.HOS 13:51
PROVIDERS: PCP Internal Medicine; Visit Provider Orthopaedic Surgery
DX: S83.242A Other tear of medial meniscus, current injury, left knee, initial encounter (principal)
CPT/HCPCS: 99203

== ENCOUNTER → 2025-03-08 13:50 | Outpatient (BNVA) | payer OTHER, SELFPAY | PROVIDERS: PCP Internal Medicine; Visit Provider Orthopaedic Surgery | DX: M25.562 Pain in left knee (principal); S83.242A Other tear of medial meniscus, current injury, left knee, initial encounter | CPT/HCPCS: 99202 ==

== ENCOUNTER 2025-05-06 11:07 | Outpatient (REF) | payer OTHER, SELFPAY ==
--- NOTE | ~2025-05-06 | MR_ITS ---
CLINICAL HISTORY: S83.242A - Other tear of medial meniscus, current injury, left knee, ini... MR left knee without contrast Comparison: CR/SR - XR KNEE 4 OR MORE VIEWS LEFT - 11/17/24 13:59 EDT Findings: The medial meniscus is intact. There is increased signal at the posterior root of the lateral meniscus inferiorly (series 10 images 19 through 20). Superiorly there is an adjacent meniscofemoral ligament anterior to the posterior cruciate ligament (series 10 images 15 through 19. The anterior and posterior cruciate ligaments are intact. The medial and lateral collateral ligaments are intact without periligamentous edema. No edema in the posterior lateral corner. The extensor mechanism is intact. No joint effusion. No Rowell's cyst. Mild amount of patchy decreased signal on the T1 weighted images and increased signal on proton density fat saturated images within the distal femur and proximal tibia, predominantly in the metaphysis. No hyaline cartilage disease in the patellofemoral, medial and lateral compartments. Impression: Intact medial meniscus. Question tear of the posterior root of the lateral meniscus. No cruciate or collateral ligament tears. Patchy signal abnormality in the distal femur and proximal tibia could be edema or red marrow. This document has been electronically signed by: Luann Corrigan MD on 05/08/2025 16:54:01
--- OUTSIDE RECORDS SUMMARY | 2025-05-06 11:12 | XMS_ITS | Encounter Summary ---
Author Organization [facility] Address [address] [place] [address] Care Team Providers Care Mail Distributor Name Role Phone Unavailable Primary Care Provider Unavailabl e Encounter Details Date Type Department Care Team (Latest Contact Info) Description 08/12/2020 Lab Requisition [facility] COVID Drive Through [address] [place] [address] [address] [place] [address] Jitendra Wilson PA-C [address] [place] [address] Encounter for laboratory testing for COVID-19 [...] Delma Nunes, Ph.D., Laboratory DirectorTests performed at [facility] Nasopharyngeal swab / Unknown 08/12/2020 1:06 PM EST 08/12/2020 1:06 PM EST Narrative JOSHUA MAHMOOD - 08/15/2020 12:02 AM EST Performed by [facility] [address] [place] [address], CLIA# [id number] and [place] License# [id number] Jitendra Wilson PA-C MICROBIOLOGY - GENERAL OR DERABLES Final Result JOSHUA MAHMOOD documented in this encounter Visit Diagnoses Diagnosis Encounter for laboratory testing for COVID-19 virus documented in this encounter
--- OUTSIDE RECORDS SUMMARY | 2025-05-06 11:12 | XMS_ITS | Clinical Summary ---
Author Organization [facility] it Address [address] [place] [address] Care Team Providers Care Merchandise Planner Name Role Phone Unavailable Primary Care Provider [...] 03/08/2024 Social Influencers of Health Screening 03/08/2024 Depression Screening 08/10/2024 COVID-19 Vaccine (2023-2 5 season) 2025 Influenza Vaccine (#1) 2025 HIB Vaccines Aged [...]
--- OUTSIDE RECORDS SUMMARY | 2025-05-06 11:12 | XMS_ITS | Clinical Summary ---
Author Organization [facility] Address [address] [place] [address] Care Team Providers Care Instrument And Control Technician Name Role Phone Unavailable Primary Care Provider [...] 93 10/04/2010 5:05 PM EST Temperature 36.5 C (97.7 F) 10/04/2010 5:05 PM EST Respiratory Rate 16 10/04/2010 5:05 PM EST [...] series) 2006 Pap Smear (Ages 21-65) 2008 HPV Vaccines (1 - 3-dose SCD M series) 2014 Influenza Vaccine 03/10/2025 COVID-19 Vaccine (1 - 2023-2 5 season) 2025 Pneumococcal Vaccine: Pediat terrance (0-5 Years) and At-Risk Patients (6 to 49 Years) Aged Out No longer eligible b ased on patient's age to complete this topic Insurance BLUE CROSS OUT OF [facility] - [facility]
--- OUTSIDE RECORDS SUMMARY | 2025-05-06 11:12 | XMS_ITS | Clinical Summary ---
Author Organization [facility] Address [address] [place] [address] Care Team Providers Care Cigarette Making Machine Hopper Feeder Name Role Phone Socrates Babb MD Primary Care Provider [phone] Socrates Babb MD Unavailable Medications Multiple Vitamins-Mineral [...] Smear 2003 COVID-19 Vaccine (2023-2 5 season) 2025 Influenza (#1) 2025 Zoster (Shingrix) (1 of [...] age to complete this topic Care Teams Cigarette Making Machine Hopper Feeder Relationship Specialty Start Date End Date Socrates Babb MD [address] [place] [address] PCP - General 03/16/23 Socrates Babb MD [address] [place] [address] PCP - Backup PCP Family Medicine 09/09/23
== END 2025-05-06 11:08 | disposition home or self-care (01) ==
LOC: HO.MRI 11:07
PROVIDERS: PCP Internal Medicine; Visit Provider Orthopaedic Surgery
DX: S83.242A Other tear of medial meniscus, current injury, left knee, initial encounter (principal)
CPT/HCPCS: 73721

== ENCOUNTER → 2025-05-06 11:07 | Outpatient (BNV) | payer OTHER, SELFPAY | PROVIDERS: PCP Internal Medicine; Visit Provider Radiology Diagnostic Radiology | DX: M23.252 Derangement of posterior horn of lateral meniscus due to old tear or injury, left knee (principal) | CPT/HCPCS: 73721 ==

== ENCOUNTER 2025-05-10 09:29 | Outpatient (AMB) | payer OTHER, SELFPAY ==
[2025-05-10 10:19] VITALS: BP 102/70; PULSE 66; RESP 16; TEMP 36.8; O2SAT 99; BMI 38.2
--- NOTE | 2025-05-10 10:19 | A.OFFPC_ITS ---
Vital Signs 05/10/25 10:19 Height 5 ft 6 in Weight 237 lb BMI 38.2 BP 102/70 Blood Pressure Location Rt brachial Position Sitting Respiration 16 Pulse 66 Pulse Source Pulse Oximeter Temp 98.3 F Temp Source Oral Pulse Oximetry (%) 99 Oxygen Delivery Method Room Air Intake Visit Reasons: wgt loss options Intake Note: Pt is here today wgt loss options Allergies No Known Allergies Allergy (Verified 05/10/25 10:24) Medication List - Last Reconciled 05/10/25 by Solange Ramsay MD fluocinonide 0.05% 1 appl topical BID 10 days inhalational spacing device (BreatheRite MDI Spacer) As directed rimegepant (Nurtec ODT) mg PO Symbicort 160-4.5 mcg/actuation (budesonide-formoterol) 2 puffs inhalation Q12H NS Ventolin HFA 90 mcg/actuation (albuterol sulfate) 2 inhalations inhalation Q6H PRN NS Tobacco use date assessed: 05/10/25 Dental Screening Dental Screen Date: 05/10/25 Did you have a dental visit in the last 12 months?: Yes Did you have a dental problem in the last 6 months where you did not have access to dental care?: No Was dental information given to patient?: Patient has dentist HPI wgt loss options HPI Details 39-year-old lady with history of obesity , migraine headache, mild intermittent asthma, mixed dyslipidemia and obstructive sleep apnea on CPAP, here today requesting help with losing weight. She has been seen by nutrition with the following recommended diet, stride walking for exercise but unable to do much due to severe left knee pain and recurren low back PFSH Medical History Skin lesion of cheek Left knee pain Pain of right sacroiliac joint History of abnormal cervical Papanicolaou smear Refused influenza vaccine Enlarged tonsils URBAN (obstructive sleep apnea) SI (sacroiliac) pain Mixed dyslipidemia Obesity (BMI 30-39.9) Migraine Mild intermittent asthma in adult without complication Surgical History History of adenoidectomy Hx of tonsillectomy Hx of LASIK History of wisdom tooth extraction Family History Father No problems noted. Mother HTN (hypertension) Cervical cancer Substance use disorder Maternal Grandmother Substance use disorder Maternal Grandfather Cancer Paternal Grandmother No problems noted. Paternal Grandfather Cancer of thyroid Substance use disorder Brother No problems noted. Sister No problems noted. Son No problems noted. Daughter No problems noted. Social History Housing: House Alcohol intake: never Patient Tobacco Use Status: Former Tobacco user Years Smoked: 15 yrs e-Cigarette/Vaping Use: Former Use Second Hand Smoke Exposure: No Substance Use Type: Marijuana service: No Current occupational status: employed Sexual orientation: Straight/Heterosexual Gender identity: Female Cognitive needs: No Hearing needs: No Vision needs: No Female Reproductive History Menstrual Age of Menarche: 15 Questionnaire PHQ-9 Over the last 2 weeks, how often have you been bothered by any of the following problems? 1. Little interest or pleasure in doing things: not at all 2. Feeling down, depressed, or hopeless: not at all 3. Trouble falling or staying asleep, or sleeping too much: not at all 4. Feeling tired or having little energy: not at all 5. Poor appetite or overeating: not at all 6. Feeling bad about yourself - or that you are a failure or have let yourself or your family down: not at all 7. Trouble concentrating on things, such as reading the newspaper or watching television: not at all 8. Moving or speaking so slowly that other people could have noticed. Or the opposite - being so fidgety or restless that you have been moving around a lot more than usual: not at all 9. Thoughts that you would be better off or of hurting yourself in some way: not at all Total score: 0 Depression Screening Interpretation: Negative Depression Screening Done: Yes Source: Developed by Drs. Nakul Don, Omayra Haywood, Hunter Tomlin and colleagues, with an educational gallo from [employer]. Thrive Questionnaire Date Thrive assessed: 12/11/24 I am a: Patient What is your living situation today?: I have a steady place to live Within the past 12 months, did the food you bought not last and you didn't have the money to get more?: I choose not to answer this question Within the past 12 months, did you worry whether your food would run out before you got money to buy more?: I choose not to answer this question Do you have trouble paying for medicines?: No Do you have trouble getting transportation to medical appointments?: No Do you have trouble paying your heating and electricity bill?: I choose not to answer this question Do you have trouble taking care of your child, family member or friend?: No Do you have trouble with day-to-day activities such as bathing, preparing meals, shopping, managing finances, etc.?: No Are you currently unemployed and looking for a job?: No Are you interested in more education?: Yes Please select the resources that you would like help with: Education Currently or been in a relationship where the following occur: No concerns reported THRIVE Score: 0 AUDIT C Alcohol Use Questionnaire (AUDIT-C) 1. How often do you have a drink containing alcohol?: Never Total Score: 0 KRISTY-7 AMB Questionnaire KRISTY-7 Date KRISTY - 7 assessed: 12/14/24 Source: Developed by Drs. Nakul Don, Omayra Haywood, Hunter Tomlin and colleagues, with an educational gallo from [employer]. Review of Systems Const Reports no additional complaints and Denies fatigue Eyes Details: Goes to [facility] , had Lasik sx in [place] Reports no additional complaints ENT Details: Dental prophylaxis q.6 months Card Denies chest pain, Denies lightheadedness, Denies palpitations and Denies orthopnea Resp Denies cough and Denies wheezing GI Denies abdominal pain, Denies bloating, Denies change in bowel habits and Denies heartburn Reports no additional complaints Musc Reports no additional complaints Neuro Reports no additional complaints Psych Reports no additional complaints Endo Denies fatigue, Denies polydipsia, Denies polyuria and Denies palpitations Jeffrey/Lymph Reports no additional complaints Aller/Immun Denies seasonal rhinorrhea and Denies wheezing Physical exam (Primary Care) Vital Signs: Last Vital Signs Temp 98.3 F 05/10/25 10:19 Pulse 66 05/10/25 10:19 Resp 16 05/10/25 10:19 BP 102/70 05/10/25 10:19 Pulse Ox 99 05/10/25 10:19 Oxygen Delivery Method Room Air 05/10/25 10:19 BMI result Body Mass Index 38.2 Tobacco/Smoking Status: Tobacco use Status Tobacco use date assessed 05/10/25 05/10/25 10:24 Patient Tobacco Use Status Former Tobacco user 05/10/25 10:24 e-Cigarette/Vaping Use Former Use 05/10/25 10:24 PHQ-9: PHQ-9 Score PHQ-9: Total score 0 05/10/25 10:33 Depression Screening Interpretation: Negative Thrive Assessment: Date of Thrive Assessment Date Thrive assessed 12/11/24 05/10/25 10:24 Currently or been in a relationship where the following occur: No concerns reported Const General: cooperative and no acute distress Orientation/consciousness: patient oriented x3 HENMT Head: Yes normal to inspection and Yes normocephalic Eyes General: appearance normal, both eyes and all related structures Pupils: Equal, round and reactive pupils present Neck Neck: Yes normal visual inspection, Yes full ROM and Yes no lymphadenopathy Resp Auscultation: clear to auscultation bilaterally Cardio Rate: regular rate Rhythm: regular rhythm Heart sounds: S1 normal heart sound present and S2 normal heart sound present GI Inspection: Yes normal to inspection Palpation (GI): Soft to palpation Auscultation: normal bowel sounds General: Yes deferred (Goes to [facility]) Skin Other: Tattoos on abdomen and back, positive piercing on nipples and navel Neuro General: patient oriented x3, moves all extremities, no focal motor deficits, CN's II-XI intact bilaterally and deep tendon reflexes 2+ bilaterally Cranial nerves: Yes CN's II-XII intact bilaterally and Yes Equal, round and r eactive pupils present Extrem General: Yes full ROM, Yes no joint enlargement and Yes no clubbing, cyanosis or edema Psych Appearance: grossly normal and well kempt Mental Status: mental status grossly normal Speech and movement: Normal speech and movement present Affect: normal affect Coding Level of Care Code Est Pt Level 4 (66303) Diagnoses Obesity (BMI 30-39.9) E66.9 Mild intermittent asthma in adult without complication J45.20 Mixed dyslipidemia E78.2 URBAN (obstructive sleep apnea) G47.33 Assessment & Plan Assessment & Plan (1) Obesity (BMI 30-39.9): Code(s): E66.9 - Obesity, unspecified Category: Medical Plan: Prescription sent for Zepbound 2.5 mg injected subcutaneously once a week. Instructed on proper use of the medication, possible side effects that she might encounter, advised to continue with adherence to healthy eating habits and staying active. See her back for follow-up 3 months after starting medication or sooner as needed (2) Mild intermittent asthma in adult without complication: Code(s): J45.20 - Mild intermittent asthma, uncomplicated Category: Medical Plan: Currently on Ventolin inhaler Symbicort (3) Mixed dyslipidemia: Code(s): E78.2 - Mixed hyperlipidemia Category: Medical Plan: Reinforced importance of adhering to a low-cholesterol diet and getting regular exercise (4) URBAN (obstructive sleep apnea): Comment: Currently being followed at [facility], with last sleep study done 05/11/2022, Dr Silver , had tonsillectomy Code(s): G47.33 - Obstructive sleep apnea (adult) (pediatric) Category: Medical Plan: Advised to lose weight, currently followed by [facility] clinic Medications: New Zepbound (tirzepatide (weight loss)) for 4 weeks 2.5 mg (0.5 mL) subcut QWEEK 2 mL 2RF NS E66.9 - Obesity, unspecified, E78.2 - Mixed hyperlipidemia, G47.33 - Obstructive sleep apnea (adult) (pediatric), J45.20 - Mild intermittent asthma, uncomplicated
--- OUTSIDE RECORDS SUMMARY | 2025-05-10 10:23 | XMS_ITS | Clinical Summary ---
Author Organization [facility] Address [address] [place] [address] Care Team Providers Care Stone Derrickman And Rigger Name Role Phone Unavailable Primary Care Provider [...] Cervical Cancer Screening: P ap Smear 2008 HPV Vaccines (1 - 3-dose SCD M series) 2014 HIV Screening 03/08/2024 Hepatitis C Screening 03/08/2024 Social Influencers of Health Screening 03/08/2024 Depression Screening 08/10/2024 COVID-19 Vaccine (1 - 2023-2 5 season) 2025 Influenza Vaccine (#1) 2025 RSV Immunization Adult Patie nts (1 - 1-dose 75+ series) 2062 HIB Vaccines Aged Out No longer eligi [...]
--- OUTSIDE RECORDS SUMMARY | 2025-05-10 10:23 | XMS_ITS | Encounter Summary ---
Author Organization [facility] Address [address] [place] [address] Care Team Providers Care Film Examiner Name Role Phone Unavailable Primary Care Provider Unavailabl e Encounter Details Date Type Department Care Team (Latest Contact Info) Description 08/12/2020 Lab Requisition [facility] COVID Drive Through [address] [place] [address] [address] [place] [address] Jitendra Wilson PA-C [address] [place] [address] Encounter for laboratory testing for COVID-19 [...] Delma Nunes, Ph.D., Laboratory DirectorTests performed at [facility] Nasopharyngeal swab / Unknown 08/12/2020 1:06 PM EST 08/12/2020 1:06 PM EST Narrative JOSHUA MAHMOOD - 08/15/2020 12:02 AM EST Performed by [facility] [address] [place] [address], CLIA# [id number] and [place] License# [id number] Jitendra Wilson PA-C MICROBIOLOGY - GENERAL OR DERABLES Final Result JOSHUA MAHMOOD documented in this encounter Visit Diagnoses Diagnosis Encounter for laboratory testing for COVID-19 virus documented in this encounter
--- OUTSIDE RECORDS SUMMARY | 2025-05-10 10:23 | XMS_ITS | Clinical Summary ---
Author Organization [facility] Address [address] [place] [address] Care Team Providers Care Civil Structural Engineer Name Role Phone Socrates Babb MD Primary Care Provider [phone] Socrates Babb MD Unavailable Medications Multiple Vitamins-Mineral [...] age to complete this topic Care Teams Civil Structural Engineer Relationship Specialty Start Date End Date Socrates Babb MD [address] [place] [address] PCP - General 03/16/23 Socrates Babb MD [address] [place] [address] PCP - Backup PCP Family Medicine 09/09/23
--- OUTSIDE RECORDS SUMMARY | 2025-05-10 10:23 | XMS_ITS | Clinical Summary ---
Author Organization [facility] Address [address] [place] [address] Care Team Providers Care Bookstore Manager Name Role Phone Unavailable Primary Care Provider [...] Pap Smear (Ages 21-65) 2008 Influenza Vaccine 03/10/2025 COVID-19 Vaccine (1 - 2023-2 5 season) 2025 HPV Vaccines (No Doses Required) Completed Pneumococcal Vaccine: Pediat terrance (0-5 Years) and At-Risk Patients (6 to 49 Years) Aged Out No longer eligible b ased on patient's age to complete this topic Insurance BL[employer] [place] OUT OF STATE - PPO
== END 2025-05-10 10:39 | disposition home or self-care (01) ==
LOC: HO.HMCC 09:30
PROVIDERS: PCP Internal Medicine; Visit Provider Internal Medicine
DX: J45.20 Mild intermittent asthma, uncomplicated (principal); E66.9 Obesity, unspecified; Z68.38 Body mass index [BMI] 38.0-38.9, adult; E78.2 Mixed hyperlipidemia; G47.33 Obstructive sleep apnea (adult) (pediatric)

== ENCOUNTER → 2025-05-10 09:29 | Outpatient (BNVA) | payer OTHER, SELFPAY | PROVIDERS: PCP Internal Medicine; Visit Provider Internal Medicine | DX: J45.20 Mild intermittent asthma, uncomplicated (principal); E66.9 Obesity, unspecified; G43.909 Migraine, unspecified, not intractable, without status migrainosus; E78.2 Mixed hyperlipidemia; G47.33 Obstructive sleep apnea (adult) (pediatric); M25.562 Pain in left knee; Z68.38 Body mass index [BMI] 38.0-38.9, adult; Z99.89 Dependence on other enabling machines and devices | CPT/HCPCS: 99212 ==

== ENCOUNTER 2025-05-23 10:58 | Outpatient (AMB) | payer OTHER, SELFPAY ==
--- NOTE | 2025-05-23 11:00 | MHC.OFFVIS ---
Vital Signs 05/23/25 11:05 Height 5 ft 6 in Weight 230 lb BMI 37.1 Intake Visit Reasons: OV- Left Knee MRI review. Intake Note: Meron is a 39 year old female who presents with complaints of intermittent left knee pain and giving way. The patient describes her pain as sharp in nature. Most of the pain is along the lateral aspect of her knee. The patient states that she injured her knee approximately 8 months ago. She has failed the last 6 weeks of conservative treatment which has included Tylenol, anti-inflammatory medicines, a home exercise program and physical therapy exercises. She has been going to physical therapy at [facility] in [place]. The patient states that at this point her symptoms are tolerable to her. Allergies No Known Allergies Allergy (Verified 05/23/25 11:05) Medication List - Last Reconciled 05/23/25 by Kris Solis MD fluocinonide 0.05% 1 appl topical BID 10 days inhalational spacing device (BreatheRite MDI Spacer) As directed rimegepant (Nurtec ODT) mg PO Symbicort 160-4.5 mcg/actuation (budesonide-formoterol) 2 puffs inhalation Q12H NS Ventolin HFA 90 mcg/actuation (albuterol sulfate) 2 inhalations inhalation Q6H PRN NS Zepbound (tirzepatide (weight loss)) 2.5 mg (0.5 mL) subcut QWEEK NS PFSH Medical History Skin lesion of cheek Left knee pain Pain of right sacroiliac joint History of abnormal cervical Papanicolaou smear Refused influenza vaccine Enlarged tonsils URBAN (obstructive sleep apnea) SI (sacroiliac) pain Mixed dyslipidemia Obesity (BMI 30-39.9) Migraine Mild intermittent asthma in adult without complication Surgical History History of adenoidectomy Hx of tonsillectomy Hx of LASIK History of wisdom tooth extraction Family History Father No problems noted. Mother HTN (hypertension) Cervical cancer Substance use disorder Maternal Grandmother Substance use disorder Maternal Grandfather Cancer Paternal Grandmother No problems noted. Paternal Grandfather Cancer of thyroid Substance use disorder Brother No problems noted. Sister No problems noted. Son No problems noted. Daughter No problems noted. Social History Housing: House Alcohol intake: never Patient Tobacco Use Status: Former Tobacco user Years Smoked: 15 yrs e-Cigarette/Vaping Use: Former Use Second Hand Smoke Exposure: No Substance Use Type: Marijuana service: No Current occupational status: employed Sexual orientation: Straight/Heterosexual Gender identity: Female Cognitive needs: No Hearing needs: No Vision needs: No Female Reproductive History Menstrual Age of Menarche: 15 Physical Exam Vital Signs: BMI result Body Mass Index 37.1 Const Other: Well-nourished well-developed very friendly female awake alert and oriented x3 in no acute distress Extrem Other: Left knee examination shows a minimal effusion, minimal crepitus with range of motion, tenderness along her lateral joint line, positive Kadie's test, no instability Results Reviewed Results Reviewed: MRI of the patient's left knee shows mild diffuse degenerative changes as well as a tear of the lateral meniscus, no acute bony abnormalities Assessment & Plan Assessment & Plan (1) Tear of lateral meniscus of left knee: Code(s): S83.282A - Other tear of lateral meniscus, current injury, left knee, initial encounter Category: Medical Plan Meron presents with intermittent left knee pain and mechanical symptoms due to a lateral meniscus tear. I had a lengthy discussion with the patient regarding the treatment options. At this point the patient's symptoms are tolerable to her. She will continue with her activity modifications. She will follow up with me on an as-needed basis should her symptoms worsen in any way. Feel free to call me at any time should questions regarding her orthopedic management arise. I spent 20 minutes in reviewing the patient's records and imaging studies, seeing the patient and documenting in the medical record. Coding Level of Care Code Est Pt Level 3 (79983) Complex EM visit Add On G2211 Diagnoses Tear of lateral meniscus of left knee S83.282A
[2025-05-23 11:05] VITALS: BMI 37.1
== END 2025-05-23 11:27 | disposition home or self-care (01) ==
LOC: HO.HOS 10:59
PROVIDERS: PCP Internal Medicine; Visit Provider Orthopaedic Surgery
DX: S83.282A Other tear of lateral meniscus, current injury, left knee, initial encounter (principal)
CPT/HCPCS: 99213

== ENCOUNTER → 2025-05-23 10:58 | Outpatient (BNVA) | payer OTHER, SELFPAY | PROVIDERS: PCP Internal Medicine; Visit Provider Orthopaedic Surgery | DX: Z71.2 Person consulting for explanation of examination or test findings (principal); S83.282D Other tear of lateral meniscus, current injury, left knee, subsequent encounter | CPT/HCPCS: 99212 ==

== ENCOUNTER 2025-06-05 07:54 | Outpatient (AMB) | payer OTHER, SELFPAY ==
--- OUTSIDE RECORDS SUMMARY | 2025-06-05 07:58 | XMS_ITS | Clinical Summary ---
Author Organization [facility] Address [address] [place] [address] Care Team Providers Care Intelligence Group Supervisor Name Role Phone Socrates Babb MD Primary Care Provider [phone] Socrates Babb MD Unavailable Medications Multiple Vitamins-Mineral [...] 04/04/2003 04/03/2003 Pap Smear 2003 COVID-19 Vaccine (2024-2 6 season) 2025 Influenza (#1) 2025 Zoster (Shingrix) [...] age to complete this topic Care Teams Intelligence Group Supervisor Relationship Specialty Start Date End Date Socrates Babb MD [address] [place] [address] PCP - General 03/16/23 Socrates Babb MD [address] [place] [address] PCP - Backup PCP Family Medicine 09/09/23
--- OUTSIDE RECORDS SUMMARY | 2025-06-05 07:58 | XMS_ITS | Clinical Summary ---
Author Organization [facility] Address [address] [place] [address] Care Team Providers Care Commercial Pest Control Representative Name Role Phone Unavailable Primary Care [...] age to complete this topic Insurance [employer] [place] OUT OF STATE - PPO
--- OUTSIDE RECORDS SUMMARY | 2025-06-05 07:58 | XMS_ITS | Encounter Summary ---
Author Organization [facility] Address [address] [place] [address] Care Team Providers Care Senior Supply Chain Analyst Name Role Phone Unavailable Primary Care Provider Unavailabl e Encounter Details Date Type Department Care Team (Latest Contact Info) Description 08/12/2020 Lab Requisition [facility] COVID Drive Through [address] [place] [address] [address] [place] [address] Jitendra Wilson PA-C [address] [place] [address] Encounter for laboratory testing for COVID-19 [...] Delma Nunes, Ph.D., Laboratory DirectorTests performed at [facility] Nasopharyngeal swab / Unknown 08/12/2020 1:06 PM EST 08/12/2020 1:06 PM EST Narrative JOSHUA MAHMOOD - 08/15/2020 12:02 AM EST Performed by [facility] [address] [place] [address], CLIA# [id number] and [place] License# [id number] Jitendra Wilson PA-C MICROBIOLOGY - GENERAL OR DERABLES Final Result JOSHUA MAHMOOD documented in this encounter Visit Diagnoses Diagnosis Encounter for laboratory testing for COVID-19 virus documented in this encounter
--- OUTSIDE RECORDS SUMMARY | 2025-06-05 07:58 | XMS_ITS | Data Portability ---
Author Organization [place] - [facility], Allergy Address [address] [address] Care Team Providers Care Unit Manager Name Role Phone BARTOLO CONNELL Primary Care Provider Assessment Encounter Date Assessment Date Assessment LastModified by Organization Details LastModified Time 04/21/2025 04/21/2025 Visit With: LEONEL Gagnon Use of Antihistamine s: No If yes: Vial Test Change in medications: No If yes Increase in asthma symptoms If yes, inhaler use: Reaction to last injections: No If yes: Allergy Symptoms: Other: Missed: Dose Aware of Vial Test Aware: Notes: [email or web address] Not available 04/21/2025 14:33:16 04/28/2025 04/28/2025 Visit With: LEONEL Gagnon Use of Antihistamine s: No If yes: Vial Test Change in medications: No If yes Increase in asthma symptoms No If yes, inhaler use: Reaction to last injections: No If yes: Allergy Symptoms: Other: Missed: Dose Aware of Vial Test Aware: Notes: [email or web address] Not available 04/28/2025 13:11:26 05/05/2025 05/05/2025 Visit With: Zamzam Treviño Use of Antihistamine s: No If yes: Vial Test Change in medications: No If yes Increase in asthma symptoms If yes, inhaler use: Reaction to last injections: No If yes: Allergy Symptoms: Other: Missed: Dose Aware of Vial Test Aware: Notes: [email or web address] Not available 05/05/2025 13:39:56 05/16/2025 05/16/2025 Visit With: Zamzam Treviño Use of Antihistamine s: No If yes: Vial Test Change in medications: No If yes Increase in asthma symptoms No If yes, inhaler use: Reaction to last injections: No If yes: Allergy Symptoms: Other: Missed: Dose Aware of Vial Test Aware: Notes: [email or web address] Not available 05/16/2025 14:02:40 05/26/2025 05/26/2025 Visit With: Zamzam Treviño Use of Antihistamine s: No If yes: Vial Test Change in medications: No If yes Increase in asthma symptoms No If yes, inhaler use: Reaction to last injections: No If yes: Allergy Symptoms: Other: Missed: Dose Aware of Vial Test Aware: Notes: [email or web address] Not available 05/26/2025 10:55:15 Plan of Treatment Reminders Order Date Submit Date Provider Last Modified By Organization Details Last Modified Time Details Appointments [facility] hed- Allergy f-up 6mon 2024 01:15P M DORON DE LA CRUZ PA-C Not available Not available Not available [...] Recorded Time Obstructi ve sleep apnea syndrome 54743186 Active 2021 Obstructi ve sleep apnea (adult) (pediatri c); Note: Date Diagnosed : 07/14/2022 10:46 AM (G47.33) Note: Date Diagnosed : 07/14/2022 10:46 AM (G47.33) LUCRECIA CORONA MD [address] [place] [address],[place] [address], [place], [address] , [place] - [facility] 13:24:53 Deviated nasal septum 991844253 Active 2021 Deviated nasal septum; Note: Date Diagnosed : 07/14/2022 10:46 AM (J34.2) Note: Date Diagnosed : 07/14/2022 10:46 AM (J34.2) LUCRECIA CORONA MD [address] [place] [address],[place] [address], [place], [address] , [place] - [facility] 4 13:24:53 Hypertrop hy of tonsils 49400499 Active 2021 Hypertrop hy of tonsils; Note: Date Diagnosed : 07/14/2022 10:46 AM (J35.1) Not Available [facility] 4 03:23:48 Disorder of right Eustachia n tube 47778055730 97070 Active 2021 Other specified disorders of Eustachia n tube, right ear; Note: Date Diagnosed : 07/14/2022 10:46 AM (H69.81) Note: Date Diagnosed : 07/14/2022 10:46 AM (H69.81) LUCRECIA CORONA MD 100 [facility],[place] [address], [place], [address] , [place] - [facility] 4 13:25:04 Hypertrop hy of tonsils AND adenoids 66318756 Active 2023 Hypertrop hy of tonsils with hypertrop hy of adenoids; Note: Date Diagnosed : 08/14/2023 10:49 AM (J35.3) Not Available [facility] 4 03:23:48 Bilateral disorder of Eustachia n tubes 28182950454 63239 Active 2024 ANNELIESE GATES 100 [facility],[place] [address], [place], [address] , [place] - [facility] 5 11:01:03 Allergic rhinitis 95254901 Active 2024 JANINE GALLEGOS PA-C 100 [facility],[place] [address], [place], [address] , [place] [facility] 5 12:22:42 Perennial allergic rhinitis 600337950 Active 2024 LEONEL FLORES [address] [facility],[place] [address], [place], [address] , [place] [facility] 5 14:02:10 Problem Notes None recorded. Procedures Surgical History Date Name Laterality Status Provider Name and Address Organization Details Recorded Time 05/26/20 25 Allergy Immunotherapy Injections completed Kyle Ware [address], [place], [address], [place] - [facility] 05/26/2025 10:55:06 05/16/20 25 Allergy Immunotherapy Injections completed ABEL FLORESA [address] [facility] [address], [place], [address], [place] [facility] 05/16/2025 14:02:27 05/05/20 25 Allergy Immunotherapy Injections completed LEONEL FLORES [address] [facility] [address], [place], [address], [place] [facility] 05/05/2025 13:39:38 04/28/20 25 Allergy Immunotherapy Injections completed Kyle Ware [address] [facility],[address], [place], [address], [place] [facility] 04/28/2025 13:11:14 04/21/20 25 Allergy Immunotherapy Injections completed BASIL ALEX Juan [address] [facility],[place] [address], [place], [address], [place] [facility] 04/21/2025 14:33:07 04/14/20 25 Allergy Immunotherapy Injections completed Kyle Ware [address] [facility],[address], [place], [address], [place] [facility] 04/14/2025 14:40:49 03/31/20 25 Allergy Immunotherapy Injections completed ZAMZAM TREVIÑO Juan [address] [facility],[place] [address] [place] [address], [address], [place] [facility] 03/31/2025 13:55:05 03/29/20 25 Allergy Immunotherapy Injections completed ANTONIO CONROY RN [address] [facility] [address], [place], [address], [place] [facility] 03/29/2025 14:15:55 03/22/20 25 Allergy Immunotherapy Injections completed Kyle Ware [address] [facility] [address], [place], [address], [place] [facility] 03/22/2025 14:59:06 03/16/20 25 Allergy Immunotherapy Injections completed BASIL KORZEC, RMA [address],[place] [address], [place], [address], [place] [facility] 03/16/2025 15:38:11 03/09/20 25 Allergy Immunotherapy Injections completed BASIL ALEX, RMA [address],[place] [address], [place], [address], [place] [facility] 03/09/2025 15:09:04 03/02/20 25 Allergy Immunotherapy Injections completed ANTONIO CONROY RN [address],[place] [address], [place], [address], [place] [facility] 03/02/2025 15:20:25 02/24/20 25 Allergy Immunotherapy Injections completed BASIL ALEX, RMA [address] [facility] [address],[place] [address], [place], [address], [place] [facility] 02/23/2025 15:10:25 02/17/20 25 Allergy Immunotherapy Injections completed LEONEL FLORES [address] [facility] [address],[place] [address] [place] [address], [address], [facility] - [facility] 02/16/2025 13:55:25 02/10/20 25 Allergy Immunotherapy Injections completed ANTONIO CONROY RN [address] [facility],[place] [address] [place] [address], [address], [facility] - [facility] 02/09/2025 14:57:59 02/03/20 25 Allergy Immunotherapy Injections completed BASIL ALEX, RMA [address],[place] [address] [place] [address], [address], [facility] - [facility] 02/02/2025 15:51:12 01/25/20 25 Allergy Immunotherapy Injections completed BASIL ALEX RMA [address],[place] [address], [place], [address], [place] [facility] 01/24/2025 14:12:59 01/18/20 25 Allergy Immunotherapy Injections completed LEONEL FLORES [address],[place] [address], [place], [address], [place] [facility] 01/17/2025 15:10:51 01/10/20 25 Allergy Immunotherapy Injections completed ANTONIO CONROY RN [address] [facility],[address], [place], [address], [place] [facility] 01/09/2025 15:11:45 12/02/19 25 Allergy Testing-Full completed BASIL ALEX, RMA [address] [facility] [address], [place], [address], [facility] - [facility] 12/01/2024 11:33:57 10/28/19 25 Air & Speech Audio with Tymps - 42761, 71823 & 60394 completed JENNIFER SEBASTIAN, AUD [address] [facility],[address], [place], [address], [facility] - [facility] 10/27/2024 11:00:31 Imaging Results None recorded. Procedure [...] oral liquid 10/27 completed Medicati on ID: [id number] B rand Name: acetamin ophen Se nd Method: E-Prescr ibed Sub s Allowed: subs OK Medic ationGen ericName : acetamin ophen Not Available Not Available Not Available Lidocaine Viscous 2 % mucosal solution Take 5 ml by mouth four times a day as needed for pain 10/27 completed Medicati on ID: [id number] D uration Value: 7 Brand Name: Lidocain e Viscous Send Method: E-Prescr ibed Sub s Allowed: subs OK Speci al Instruct ion: swish and spit Med icationG enericNa me: Lidocain e Viscous Not Available Not Available Not Available sumatript an 100 mg tablet 11/08 completed Medicati on ID: [id number] B rand Name: sumatrip rothman succinat e [...] mg tablet 10/27 completed Medicati on ID: [id number] B rand Name: derrick rothman Send Method: E-Prescr ibed Sub s Allowed: subs OK Medic ationGen ericName : derrick rothman Not Available Not Available Not Available [...] for pain 10/27 completed Medicati on ID: [id number] D uration Value: 4 Brand Name: acetamin ophen Se nd Method: E-Prescr ibed Sub s Allowed: subs OK Medic ationGen ericName : acetamin ophen Not Available Not Available Not Available azelastin e 137 mcg (0.1 %) nasal spray SPRAY 2 SPRAYS BY INTRANAS AL ROUTE TWICE A DAY 2024 active Not Available Not Available Not Avai lable epinephri ne 0.3 mg/0.3 mL injection , auto-inje ctor INJECT 1 PEN INTO MUSCLE ONCE NEEDED FOR ANAPHYLA XIS active Not Available Not Available No t Available ibuprofen 100 mg/5 mL oral suspensio n 10/27 completed Medicati on ID: [id number] B rand Name: ibuprofe n Send Method: [...] ating tablet 10/27 completed Medicati on ID: [id number] B rand Name: micah mera Send Method: E-Prescr ibed Sub s Allowed: subs OK Medic ationGen ericName : ondanset samaria Not Available Not Available Not Available fluticaso ne propionat e 50 mcg/actua tion nasal spray,nicole pension 10/27 completed Medicati on ID: [id number] B rand Name: fluticas one propiona te [...] inhaler,s ensor 11/08 completed Medicati on ID: [id number] B rand Name: ProAir HFA Send Method: [...] Lidocaine Pain Relief 4 % topical spray [place] 1 spray into mouth four times a day as needed for pain 10/27 completed Medicati on ID: [id number] D uration Value: 7 Brand Name: Lidocain e Pain Relief S end Method: E-Prescr ibed Sub s Allowed: subs OK Medic ationGen ericName : Lidocain e Pain Relief Not Available Not Available Not Available Vitals None Recorded Social History Question Answer Notes LastModified by Organizat ion Details LastModified Time Tobacco Smoking Status Former Smoker [facility], [facility] 100 [facility],[address], [address], [place] - [facility] 12/01/2024 10:43:08 When Did You Quit [...] Disorder N Anesthesia Complications N Heart Attack ([place]) N Other Skin Condition N Diabetes N Rhinitis N Bleeding Disorder N Food Allergy N Arthritis N Hearing Loss N Hyperlipidemia N Cancer N Eczema Y Stroke N Dementia N Nasal polyps N Asthma Y High Cholesterol Y Sleep Disorder N GERD/Reflux N Liver Disease N Headaches Y Fibromyalgia N Hypertension N Speech Delay N Kidney Disease N Gynecological HistoryNo gynecological history recorded. Obstetrics History GPAL:G 0 P 0 0 0 0 Past Encounters Encounter ID Performer Location Encounter Start Date Encounter Closed Date Diagnosis/Indication Diagnosis SNOMED-CT Code Diagnosis ICD10 Code Diagnosis IMO Codes Diagnosis Note [id number] LUCRECIA CORONA MD [facility] [address] [address] 01/22/2024 14:21:36 01/22/2024 15:26:15 Obstructive sleep apnea syndrome 46796952 G47.33 Disorder o f right Eustachian tube [id number] 113091 H69.81 [id number] JANINE GALLEGOS PA-C [facility] [address] [address] 10/27/2024 10:23:01 10/27/2024 11:29:58 Bilateral disorder of Eustachian tubes [id number] 243274 H69.83 Audiologic al evaluation results: Right ear: Borderline normal rising to normal hearing with excellent word recognitio n. Left ear: Borderline normal rising to normal hearing with excellent word recognitio n. Tympanomet ry: Right Ear:Type C Left Ear:Type C Allergic rhinitis 363134 04 J30.89 [id number] BASIL TAMARA, A Allergy [address] [place] [address] [place] [address] 12/01/2024 10:25:52 12/01/2024 11:35:06 Allergic rhinitis 77049270 J30.89 [id number] JANINE GALLEGOS PA-C [facility] [address] [place] [address] 12/16/2024 11:12:36 12/16/2024 11:57:24 Allergic rhinitis 27452340 J30.89 [id number] ANTONIO CONROY RN Allergy [address] [place] [address] 100 [place] [id number] 01/09/2025 14:51:28 01/09/2025 15:12:46 Perennial allergic rhinitis 429408883 J30.89 Allergic rhinitis 273674 04 J30.89 [id number] ZAMZAM TREVIÑO, [facility] Allergy [address] [place] [address],[facility] [address] [place] [address] 01/17/2025 14:39:48 01/17/2025 15:12:17 Perennial allergic rhinitis 379791556 J30.89 [id number] [facility], [facility] Allergy [address] [place] [address],[facility] 100 [place] [id number] 01/24/2025 12:56:16 01/24/2025 14:13:39 Perennial allergic rhinitis 743045692 J30.89 [id number] [facility] Allergy [address] [place] [address],[facility] 100 [place] [address] 02/02/2025 15:43:15 02/02/2025 15:51:46 Perennial allergic rhinitis 198432136 J30.89 [id number] ANTONIO CONROY RN Allergy [address] [place] [address],[facility] [address] [place] [address] 02/09/2025 14:50:52 02/09/2025 14:58:25 Perennial allergic rhinitis 230692368 J30.89 [id number] ZAMZAM TREVIÑO, [facility] Allergy [address] [place] [address], [place] [address] [place] [id number] 02/16/2025 13:23:13 02/16/2025 13:55:55 Perennial allergic rhinitis 957419655 J30.89 [id number] [facility], RMA Allergy 100 [facility],[place] [address] [place] [address] 02/23/2025 15:01:18 02/23/2025 15:10:55 Perennial allergic rhinitis 184623710 J30.89 [id number] ANTONIO CONROY RN Allergy [address] [place] [address],[place] [address] [place] [address] 03/02/2025 15:19:36 03/02/2025 15:20:49 Perennial allergic rhinitis 547594234 J30.89 [id number] [facility], RMA Allergy [address] [facility],[place] [address] [place] [address] 03/09/2025 15:08:02 03/09/2025 15:09:28 Perennial allergic rhinitis 482182588 J30.89 [id number] [facility], A Allergy 100 [facility],[place] [address] [place] [address] 03/16/2025 15:12:02 03/16/2025 15:39:43 Perennial allergic rhinitis 398348462 J30.89 [id number] ANTONIO CONROY RN Allergy [address] [place] [address],[place] [address] [place] [address] 03/22/2025 14:58:14 03/22/2025 14:59:40 Perennial allergic rhinitis 584965651 J30.89 [id number] [facility], RMA Allergy [address] [facility],[place] [address] [place] [address] 03/29/2025 14:14:52 03/29/2025 14:19:08 Perennial allergic rhinitis 010845954 J30.89 [id number] ZAMZAM TREVIÑO, A Allergy 100 [facility],[place] [address] [place] [address] 03/31/2025 13:54:00 03/31/2025 14:57:06 Perennial allergic rhinitis 712056458 J30.89 [id number] ANTONIO CONROY RN Allergy [address] [place] [address],[place] [address] [place] [address] 04/14/2025 14:39:41 04/14/2025 14:41:21 Perennial allergic rhinitis 465604737 J30.89 [id number] BASIL ALEX, RMA Allergy [address],[place] [address] [place] [address] 04/21/2025 14:32:09 04/21/2025 14:33:43 Perennial allergic rhinitis 842205293 J30.89 [id number] BASIL ALEX, RMA Allergy [address],[place] [address] [place] [address] 04/28/2025 13:10:17 04/28/2025 13:11:59 Perennial allergic rhinitis 929016093 J30.89 [id number] ZAMZAM TREVIÑO, RMA Allergy [address],[place] [address] [place] [address] 05/05/2025 13:39:06 05/05/2025 13:40:08 Perennial allergic rhinitis 920474178 J30.89 [id number] ZAMZAM TREVIÑO RMA Allergy 100 [facility],[place] [address] [place] [address] 05/16/2025 13:47:56 05/16/2025 14:03:05 Perennial allergic rhinitis 934260400 J30.89 [id number] ZAMZAM TREVIOÑ, A Allergy [address] [facility],[place] [address] [place] [address] 05/26/2025 10:54:16 05/26/2025 10:55:28 Perennial allergic rhinitis 744312727 J30.89 Health Concerns Section Related Observation LastModified by Organization Detai ls LastModified Time None Recorded Concern Status LastModified by Organization Details LastModified Time None Recorded Advance Directives Directive None Recorded Payers Insurance Date Sequence Insurance Name Policy Number Policy Delgado Covered Member ID Delgado Member ID Guarantor Name 05/26/2025 1 [facility] (MEDICAID HMO) [place] Meron Sanchez [id number] Meron Sanchez OBGyn Episode No OBEpisode recorded.
--- OUTSIDE RECORDS SUMMARY | 2025-06-05 07:58 | XMS_ITS | Clinical Summary ---
[facility] Organization [facility] Address [address] [place] [address] Care Team Providers Care Train Clerk Name Role Phone Unavailable Primary Care Provider [...]
--- NOTE | 2025-06-05 08:09 | MHC.PC.OV ---
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: No Allergies No Known Allergies Allergy (Verified 06/09/25 22:56) Medication List - Last Reconciled 06/09/25 by Solange Ramsay MD fluocinonide 0.05% 1 appl topical BID 10 days inhalational spacing device (BreatheRite MDI Spacer) As directed phentermine 15 mg PO DAILY rimegepant (Nurtec ODT) mg PO Symbicort 160-4.5 mcg/actuation (budesonide-formoterol) 2 puffs inhalation Q12H NS Ventolin HFA 90 mcg/actuation (albuterol sulfate) 2 inhalations inhalation Q6H PRN NS Tobacco use date assessed: 06/05/25 Dental Screening Dental Screen Date: 06/05/25 Did you have a dental visit in the last 12 months?: Yes Did you have a dental problem in the last 6 months where you did not have access to dental care?: No Was dental information given to patient?: Patient has dentist HPI discuss wgt med HPI Details The patient is a 39-year-old female presenting for a telehealth visit to discuss weight loss treatment options. She has previously tried various weight loss programs, dieting, and has paid for a personal support worker, but has not been able to lose any significant amount of weight , here today to discuss other treatment options for help with losing weight. The patient has a history of both central and obstructive sleep apnea and underwent tonsillectomy and adenoidectomy. Her insurance refused to authorize a follow-up sleep study post-operatively. Despite submitting the sleep apnea diagnosis, the request for Zepbound was denied by her insurance. She has been having intermittent episodes of back pain, and history of a meniscus tear, which limits her ability to exercise. She also has a history of migraines, for which she takes Nurtec, which has been helping. [facility] Medical History Left knee pain Pain of right sacroiliac joint History of abnormal cervical Papanicolaou smear Refused influenza vaccine Enlarged tonsils URBAN (obstructive sleep apnea) SI (sacroiliac) pain Mixed dyslipidemia Obesity (BMI 30-39.9) Migraine Mild intermittent asthma in adult without complication Surgical History History of adenoidectomy Hx of tonsillectomy Hx of LASIK History of wisdom tooth extraction Family History Father No problems noted. Mother HTN (hypertension) Cervical cancer Substance use disorder Maternal Grandmother Substance use disorder Maternal Grandfather Cancer Paternal Grandmother No problems noted. Paternal Grandfather Cancer of thyroid Substance use disorder Brother No problems noted. Sister No problems noted. Son No problems noted. Daughter No problems noted. Social History Housing: House Alcohol intake: never Patient Tobacco Use Status: Former Tobacco user Years Smoked: 15 yrs e-Cigarette/Vaping Use: Former Use Second Hand Smoke Exposure: No Substance Use Type: Marijuana service: No Current occupational status: employed Sexual orientation: Straight/Heterosexual Gender identity: Female Cognitive needs: No Hearing needs: No Vision needs: No Female Reproductive History Menstrual Age of Menarche: 15 Questionnaire Thrive Questionnaire Date Thrive assessed: 12/11/24 I am a: Patient What is your living situation today?: I have a steady place to live Within the past 12 months, did the food you bought not last and you didn't have the money to get more?: I choose not to answer this question Within the past 12 months, did you worry whether your food would run out before you got money to buy more?: I choose not to answer this question Do you have trouble paying for medicines?: No Do you have trouble getting transportation to medical appointments?: No Do you have trouble paying your heating and electricity bill?: I choose not to answer this question Do you have trouble taking care of your child, family member or friend?: No Do you have trouble with day-to-day activities such as bathing, preparing meals, shopping, managing finances, etc.?: No Are you currently unemployed and looking for a job?: No Are you interested in more education?: Yes Please select the resources that you would like help with: Education Currently or been in a relationship where the following occur: No concerns reported THRIVE Score: 0 KRISTY-7 AMB Questionnaire KRISTY-7 Date KRISTY - 7 assessed: 12/14/24 Source: Developed by Drs. Nakul Don, Omayra Haywood, Hunter Tomlin and colleagues, with an educational gallo from [employer]. Review of Systems Const Reports no additional complaints Eyes Details: Goes to [facility] , had Lasik sx in [place] Reports no additional complaints ENT Details: Dental prophylaxis q.6 months Reports no additional complaints Card Denies chest pain, Denies lightheadedness, Denies palpitations and Denies orthopnea Resp Denies cough and Denies wheezing GI Denies abdominal pain, Denies change in bowel habits and Denies heartburn Reports no additional complaints Musc Reports no additional complaints Neuro Reports no additional complaints Psych Reports no additional complaints Endo Denies polydipsia, Denies polyuria and Denies palpitations Jeffrey/Lymph Reports no additional complaints Aller/Immun Denies seasonal rhinorrhea and Denies wheezing Physical exam (Primary Care) Tobacco/Smoking Status: Tobacco use Status Tobacco use date assessed 06/05/25 06/05/25 08:13 Patient Tobacco Use Status Former Tobacco user 06/05/25 08:13 e-Cigarette/Vaping Use Former Use 06/05/25 08:13 Thrive Assessment: Date of Thrive Assessment Date Thrive assessed 12/11/24 06/05/25 08:13 Currently or been in a relationship where the following occur: No concerns reported Telehealth Telehealth Telehealth Platform: [facility] Location of provider rendering services: practice address Location of patient: address on file Patient Identification confirmed using: Name, : Yes Telehealth method: video Patient verbally consented to treatment: Yes Patient verbally consented to billing insurance company: Yes Patient informed of any privacy concerns related to visit: Yes Minutes spent on Phone/Video with Pt.: 15 Coding Level of Care Code Tele Est Pt Level 4 (56114) Diagnoses Obesity (BMI 30-39.9) E66.9 Mixed dyslipidemia E78.2 URBAN (obstructive sleep apnea) G47.33 Assessment & Plan Assessment & Plan (1) Obesity (BMI 30-39.9): Code(s): E66.9 - Obesity, unspecified Category: Medical Plan: Will try on phentermine 15 mg per capsule to take once a day 2 hours after breakfast, combined this with adherence to healthy eating habits and getting moderate intensity exercise at least 15 minutes 3 to 4 times a week. Will also refer her to a weight loss clinic in the [place] area, per patient preference. Will see her back for follow-up 4 weeks after starting phentermine (2) Mixed dyslipidemia: Code(s): E78.2 - Mixed hyperlipidemia Category: Medical Plan: Reminded patient to get her repeat fasting lipid levels checked, orders already has been sent to lab. Continue with following a low-cholesterol diet and regular exercise, at least 30 minutes moderate intensity exercise 3 to 4 times a week. Advised patient to make healthy food choices, eat more fruits, vegetables, whole grains, wild caught fish and low-fat dairy. Limit amount of meat and fried or fatty food products, as well as processed foods and fast foods. (3) URBAN (obstructive sleep apnea): Comment: Currently being followed at [facility], with last sleep study done 05/11/2022, Dr Silver , had tonsillectomy Code(s): G47.33 - Obstructive sleep apnea (adult) (pediatric) Category: Medical Plan: Had adenoidectomy done, followed at [facility] sleep program Medications: New phentermine must administer 2 hours after breakfast 15 mg PO DAILY 30 caps 0RF E66.9 - Obesity, unspecified, E78.2 - Mixed hyperlipidemia, G47.33 - Obstructive sleep apnea (adult) (pediatric)
== END 2025-06-05 09:21 | disposition home or self-care (01) ==
LOC: HO.HMCC 07:55
PROVIDERS: PCP Internal Medicine; Visit Provider Internal Medicine
DX: E66.9 Obesity, unspecified (principal); E78.2 Mixed hyperlipidemia; G47.33 Obstructive sleep apnea (adult) (pediatric)

== ENCOUNTER 2025-07-04 11:00 | Outpatient (AMB) | payer OTHER, SELFPAY ==
[2025-07-04 11:40] VITALS: BP 100/62; PULSE 69; RESP 16; TEMP 36.7; O2SAT 96; BMI 38.6
--- NOTE | 2025-07-04 11:40 | MHC.PC.OV ---
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 Required: No Allergies No Known Allergies Allergy (Verified 07/04/25 12:04) Medication List - Last Reconciled 07/04/25 by Solange Ramsay MD fluocinonide 0.05% 1 appl topical BID 10 days inhalational spacing device (BreatheRite MDI Spacer) As directed phentermine 15 mg PO DAILY rimegepant (Nurtec ODT) mg PO Symbicort 160-4.5 mcg/actuation (budesonide-formoterol) 2 puffs inhalation Q12H NS Ventolin HFA 90 mcg/actuation (albuterol sulfate) 2 inhalations inhalation Q6H PRN NS Tobacco use date assessed: 07/04/25 Dental Screening Dental Screen Date: 07/04/25 Did you have a dental visit in the last 12 months?: Yes Did you have a dental problem in the last 6 months where you did not have access to dental care?: No Was dental information given to patient?: Patient has dentist HPI 4 weeks f/up HPI Details The patient is a 40 year old individual presenting for a follow-up visit for weight management. The patient was started on phentermine 15 mg and reports no significant effect, with an initial slight decrease in appetite during the first week that did not persist. The patient reports a weight gain of 11 pounds over the last month. Regarding physical activity, the patient has been going to the gym with a seeing eye dog trainer three to four days a week for one-hour sessions. Workouts include high-intensity interval training, full-body circuits, and cardio. The patient feels more energetic with the exercise routine but finds some exercises difficult due to the patient's abdomen size. The patient denies experiencing palpitations with phentermine and reports stable blood pressure. The patient has an upcoming appointment at a weight loss clinic and has specified a preference against surgical options. [facility] Medical History Left knee pain Pain of right sacroiliac joint History of abnormal cervical Papanicolaou smear Refused influenza vaccine Enlarged tonsils URBAN (obstructive sleep apnea) SI (sacroiliac) pain Mixed dyslipidemia Obesity (BMI 30-39.9) Migraine Mild intermittent asthma in adult without complication Surgical History History of adenoidectomy Hx of tonsillectomy Hx of LASIK History of wisdom tooth extraction Family History Father No problems noted. Mother HTN (hypertension) Cervical cancer Substance use disorder Maternal Grandmother Substance use disorder Maternal Grandfather Cancer Paternal Grandmother No problems noted. Paternal Grandfather Cancer of thyroid Substance use disorder Brother No problems noted. Sister No problems noted. Son No problems noted. Daughter No problems noted. Social History Housing: House Alcohol intake: never Patient Tobacco Use Status: Former Tobacco user Years Smoked: 15 yrs e-Cigarette/Vaping Use: Former Use Second Hand Smoke Exposure: No Substance Use Type: Marijuana service: No Current occupational status: employed Sexual orientation: Straight/Heterosexual Gender identity: Female Cognitive needs: No Hearing needs: No Vision needs: No Female Reproductive History Menstrual Age of Menarche: 15 Questionnaire Thrive Questionnaire Date Thrive assessed: 12/11/24 I am a: Patient What is your living situation today?: I have a steady place to live Within the past 12 months, did the food you bought not last and you didn't have the money to get more?: I choose not to answer this question Within the past 12 months, did you worry whether your food would run out before you got money to buy more?: I choose not to answer this question Do you have trouble paying for medicines?: No Do you have trouble getting transportation to medical appointments?: No Do you have trouble paying your heating and electricity bill?: I choose not to answer this question Do you have trouble taking care of your child, family member or friend?: No Do you have trouble with day-to-day activities such as bathing, preparing meals, shopping, managing finances, etc.?: No Are you currently unemployed and looking for a job?: No Are you interested in more education?: Yes Please select the resources that you would like help with: Education Currently or been in a relationship where the following occur: No concerns reported THRIVE Score: 0 KRISTY-7 AMB Questionnaire KRISTY-7 Date KRISTY - 7 assessed: 12/14/24 Source: Developed by Drs. Nakul Don, Omayra Haywood, Hunter Tomlin and colleagues, with an educational gallo from [employer]. Review of Systems Const All systems reviewed & are unremarkable except as noted in HPI and below Physical exam (Primary Care) Vital Signs: Last Vital Signs Temp 98.0 F 07/04/25 11:40 Pulse 69 07/04/25 11:40 Resp 16 07/04/25 11:40 BP 100/62 07/04/25 11:40 Pulse Ox 96 07/04/25 11:40 Oxygen Delivery Method Room Air 07/04/25 11:40 BMI result Body Mass Index 38.6 Tobacco/Smoking Status: Tobacco use Status Tobacco use date assessed 07/04/25 07/04/25 11:45 Patient Tobacco Use Status Former Tobacco user 07/04/25 11:45 e-Cigarette/Vaping Use Former Use 07/04/25 11:45 Thrive Assessment: Date of Thrive Assessment Date Thrive assessed 12/11/24 07/04/25 11:45 Currently or been in a relationship where the following occur: No concerns reported Const General: cooperative and no acute distress Orientation/consciousness: patient oriented x3 HENMT Head: Yes normal to inspection Eyes General: appearance normal, both eyes and all related structures Pupils: Equal, round and reactive pupils present Neck Neck: Yes normal visual inspection, Yes full ROM and Yes no lymphadenopathy Resp Auscultation: clear to auscultation bilaterally Cardio Rate: regular rate Rhythm: regular rhythm Heart sounds: S1 normal heart sound present and S2 normal heart sound present GI Inspection: Yes normal to inspection Palpation (GI): Soft to palpation Auscultation: normal bowel sounds Skin Other: Tattoos on abdomen and back, positive piercing on nipples and navel Neuro General: patient oriented x3, moves all extremities, no focal motor deficits, CN's II-XI intact bilaterally and deep tendon reflexes 2+ bilaterally Cranial nerves: Yes CN's II-XII intact bilaterally and Yes Equal, round and reactive pupils present Extrem General: Yes full ROM, Yes no joint enlargement and Yes no clubbing, cyanosis or edema Coding Level of Care Code Est Pt Level 4 (12599) Diagnoses Obesity (BMI 30-39.9) E66.9 Assessment & Plan Assessment & Plan (1) Obesity (BMI 30-39.9): Code(s): E66.9 - Obesity, unspecified Category: Medical Plan: Stop phentermine 15 mg daily and prescription written for phentermine 30 mg per capsule to take once a day 2 hours after breakfast, continue with regular moderate intensity exercise and adherence to recommended diet. Discussed possible side effects of medication, will see her back for follow-up in 4 weeks after starting new dose of phentermine Medications: New phentermine must administer 2 hours after breakfast 30 mg PO DAILY 30 caps 0RF Discontinued phentermine must administer 2 hours after breakfast Discontinued Reason: Doctor's Order 15 mg PO DAILY 30 caps 0RF E66.9 - Obesity, unspecified, E78.2 - Mixed hyperlipidemia, G47.33 - Obstructive sleep apnea (adult) (pediatric)
--- OUTSIDE RECORDS SUMMARY | 2025-07-04 14:31 | XMS_ITS | Clinical Summary ---
Author Organization [facility] Address [address] [place] [address] Care Team Providers Care Processing Specialist Name Role Phone Socrates Babb MD Primary Care Provider [phone] Socrates Babb MD Unavailable Medications Multiple Vitamins-Mineral [...] age to complete this topic Care Teams Processing Specialist Relationship Specialty Start Date End Date Socrates Babb MD [address] [place] [address] PCP - General 03/16/23 Socrates Babb MD [address] [place] [id number] PCP - Backup PCP Family Medicine 09/09/23
--- OUTSIDE RECORDS SUMMARY | 2025-07-04 14:31 | XMS_ITS | Clinical Summary ---
Author Organization [facility] Address [address] [place] [address] Phone Care Team Providers Care Votator Machine Operator Name Role Phone Solange Ramsay MD Primary Care Provider Social History Tobacco Use Types Packs/Day Years Used Date Smoking Tobacco: Never Assessed Comments Unknown Sex and Gender Information Value Date Recorded Sex Assigned at Not on file Legal Sex Female 1:33 PM EST Gender Identity Not on file Sexual Orientation Not on file Plan of Treatment Upcoming Encounters Date Type Department Care Team (Late st Contact Info) Description 08/01/2025 11:00 AM EST Office Visit [facility] [place] [address] [place] [address] Jemima Carranza MD [address] [place] [address] Health Maintenance Due Date Last Done Comments DTaP,Tdap,and Td Vaccines (1 - Tdap) 2006 Hepatitis B Vaccines (1 of 3 - 19+ 3-dose series) 2006 Cervical Cancer Screening: P ap Smear 2008 HPV Vaccines (1 - 3-dose SCD M series) 2014 Cholesterol Screening (Lipid Panel) 03/08/2024 HIV Screening 03/08/2024 Hepatitis C Screening 03/08/2024 Social Influencers of Health Screening 03/08/2024 Depression Screening 08/10/2024 COVID-19 Vaccine (1 - 2024-2 6 season) 2025 Influenza Vaccine (#1) 2025 RSV [...] patient's age to complete this topic Insurance [facility] Care Teams Votator Machine Operator Relationship Specialty Start Date End Date Solange Ramsay MD [address] [place] [id number] PCP - General Internal Medicine 06/22/25
--- OUTSIDE RECORDS SUMMARY | 2025-07-04 14:31 | XMS_ITS | Clinical Summary ---
Author Organization [facility] Address [address] [place] [address] Care Team Providers Care Hebrew Teacher Name Role Phone Unavailable Primary Care Provider [...] age to complete this topic Insurance [employer] [place] [employer] [place] - PPO
== END 2025-07-04 13:11 | disposition home or self-care (01) ==
LOC: HO.HMCC 11:01
PROVIDERS: PCP Internal Medicine; Visit Provider Internal Medicine
DX: E66.9 Obesity, unspecified (principal); Z68.38 Body mass index [BMI] 38.0-38.9, adult

== ENCOUNTER → 2025-07-04 11:00 | Outpatient (BNVA) | payer OTHER, SELFPAY | PROVIDERS: PCP Internal Medicine; Visit Provider Internal Medicine | DX: E78.2 Mixed hyperlipidemia (principal); E66.9 Obesity, unspecified; G47.33 Obstructive sleep apnea (adult) (pediatric); Z68.38 Body mass index [BMI] 38.0-38.9, adult; Z79.899 Other long term (current) drug therapy | CPT/HCPCS: 99212 ==